=== PATIENT | female | born 1955 | race Caucasian/White ===

== ENCOUNTER → 2020-06-25 15:56 | Outpatient (BNVA) | payer MEDICARE, OTHER, SELFPAY | PROVIDERS: PCP Internal Medicine; Visit Provider Internal Medicine | DX: Z13.89 Encounter for screening for other disorder (principal) | CPT/HCPCS: Q3014 ==

== ENCOUNTER 2020-10-02 13:58 | Emergency (ER) | payer MEDICARE, OTHER, SELFPAY ==
--- NOTE | ~2020-10-02 | CT_ITS ---
EXAMINATION: CT ABDOMEN AND PELVIS WITHOUT CONTRAST CLINICAL INFORMATION: Right-sided abdominal pain COMPARISON: CT abdomen pelvis 01/02/2013 TECHNIQUE: Multidetector volumetric imaging was performed from the superior aspect of the liver through the pubic symphysis. Sagittal and coronal reformatted images were obtained on the technologist's workstation. This CT examination was performed using dose optimization techniques as appropriate, variously including the following: *Automated exposure control *Adjustment of mA and/or kV according to patient size (this includes techniques or standardized protocols for targeted exams where dose is matched to indication/reason for exam; i.e. extremities or head) *Use of iterative reconstruction technique DLP: 633 mGy-cm FINDINGS: LUNG BASES: The visualized lung bases are unremarkable. LIVER, GALLBLADDER, AND BILIARY TREE: The liver is normal in size, shape, and attenuation. No focal hepatic lesion or biliary ductal dilatation is present. The gallbladder is unremarkable with no evidence of radiopaque gallstones, gallbladder wall thickening, or obvious pericholecystic inflammatory changes. PANCREAS: Unremarkable. SPLEEN: Unremarkable. ADRENAL GLANDS: Unremarkable. KIDNEYS AND URETERS: The kidneys are normal in size, shape, and attenuation. No hydronephrosis, hydroureter, or calculi seen. No perinephric stranding. BLADDER: Unremarkable. GASTROINTESTINAL TRACT: There are numerous diverticula of the left colon. There is no diverticulitis. There is no bowel wall thickening /edema. There is no bowel obstruction. There is a small to moderate volume of stool in the colon. The appendix is normal . The small bowel loops are unremarkable. The stomach is normal. There is no hiatal hernia. ABDOMINAL WALL: Small fat-containing umbilical hernia. Surgical clips in the right groin. LYMPH NODES: Normal. VASCULAR: Atherosclerotic vascular calcifications of aorta and iliac arteries. PELVIC VISCERA: Unremarkable. OSSEOUS STRUCTURES: Multilevel degenerative spondylosis spine. Anterior wedge compression fracture of T11 vertebrae with greater than 50% loss of height of the vertebral body. This is chronic unchanged since 2012. CT/CT abdomen pelvis wo con IMPRESSION: No acute abnormality CT scan abdomen pelvis.
--- NOTE | ~2020-10-02 | US_ITS ---
EXAMINATION: US ABDOMEN LIMITED CLINICAL INFORMATION: Right upper quadrant pain, rule out cholecystitis. COMPARISON: CT scan of the abdomen and pelvis dated 01/02/2013. TECHNIQUE: Real-time imaging of the right upper quadrant abdominal viscera. FINDINGS: PANCREAS: Visualized portions unremarkable. LIVER: Unremarkable. GALLBLADDER: Unremarkable. No mural thickening, gallstones or pericholecystic fluid. COMMON BILE DUCT: Normal in caliber measuring 0.4 cm in diameter. RIGHT KIDNEY: 10.5 cm. Unremarkable. FREE FLUID: None. US/US abdomen limited IMPRESSION: Unremarkable right upper quadrant ultrasound. No gallbladder abnormality.
[2020-10-02 14:06] VITALS: BP 157/84; PULSE 107; RESP 18; TEMP 37.1; O2SAT 97; BMI 30.1
[2020-10-02 14:28] LABS: MANUAL DIFF FLAG NO
[2020-10-02 14:31] LABS: Basophils Absolute Auto 0.1 X10*3/uL (0.0-0.2); Basophils Percent Auto 0.4 % (0-2); Eosinophils Absolute Auto 0.2 X10*3/uL (0.0-0.4); Eosinophils Percent Auto 1.3 % (0-4); Hematocrit 46.7 % (37-47); Hemoglobin 15.1 g/dl (12.0-16.0); Imm Gran Abs Auto 0.18 X10*3/uL (0.00-0.03); Imm Gran Pct Auto 1.4 % (0.0-0.4); Lymphocytes Absolute Auto 2.4 X10*3/uL (1.2-4.9); Lymphocytes Percent Auto 18.8 % (20-40); Mean Corpuscular HGB Conc 32.3 g/dl (31.0-35.0); Mean Corpuscular Hemoglobin 30.4 pg (27.0-33.0); Mean Corpuscular Volume 94.2 fL (80-98); Mean Platelet Volume 10.4 fL (9.4-12.3); Monocytes Absolute Auto 1.5 X10*3/uL (0.1-1.2); Monocytes Percent Auto 11.7 % (2-11); Neutrophils Absolute Auto 8.5 X10*3/uL (2.0-8.3); Neutrophils Percent Auto 66.4 % (45-73); Platelet Count 314 X10*3/uL (160-400); Red Blood Count 4.96 X10*6/uL (4.20-5.50); Red Cell Distribution Width 14.2 % (11.0-16.0); White Blood Count 12.8 X10*3/uL (4.8-10.8)
[2020-10-02 14:35] LABS: Glucose Urine UA NEG (NEG); Leukocyte Esterase Urine NEG (NEG); Nitrite Urine NEG (NEG); PH 5.5 (5.0-8.0); Specific Gravity - Urine >= 1.030 (1.005-1.025); Urine Blood NEG (NEG); Urine Ketones 5 MG/DL (NEG); Urine Protein NEG (NEG-TRACE)
[2020-10-02 14:36] LABS: Appearance Urine CLEAR; Color Urine YELLOW
[2020-10-02 14:55] LABS: Alanine Aminotransferase 17 U/L (0-31); Alkaline Phosphatase 110 U/L (39-117); Anion Gap 15 (12-20); Aspartate Amino Transferase 13 U/L (5-31); Bilirubin Total 0.4 mg/dL (0.0-1.0); Blood Urea Nitrogen 14 mg/dL (9-16); Calcium 9.1 mg/dL (8.4-10.2); Carbon Dioxide 25 mmol/L (22-29); Chloride 106 mmol/L (96-108); Creatinine Clr Calc Pharmacy 75.6; Estimated Glomerular Filt Rate > 60; Glucose Random 88 mg/dL (60-115); Lipase 13 U/L (8-78); Potassium 3.6 mmol/L (3.3-5.1); Sodium 142 mmol/L (135-145); Total Protein 7.1 g/dL (6.5-8.0)
[2020-10-02 16:00] VITALS: BP 136/72; PULSE 91; RESP 20; O2SAT 98
--- NOTE | 2020-10-02 16:18 | ED_ITS ---
HPI - Abdominal Pain General Chief Complaint: Abdominal Pain Stated Complaint: abd pain Time Seen by Provider: 10/02/20 16:18 Source: patient Mode of arrival: ambulatory Limitations: no limitations History of Present Illness HPI narrative: Patient with history of COPD/ asthma on chronic use of prednisone came here for 3 days of right upper quadrant pain associated with nausea does not feel hungry pain radiates to right lower quadrant no fever no chills no blood in the urine no history of kidney stone no history of gallstone patient fell about 1 week ago without any significant injury to her abdomen and that time she did not have any significant pain. Related Data Home Medications Medication Instructions Recorded Confirmed bupropion HCl 200 mg tablet,12 hr PO 06/25/20 sustained-release clonidine HCl 0.1 mg tablet 0.05 mg PO BID 06/25/20 duloxetine 60 mg capsule,delayed 60 mg PO DAILY 06/25/20 release losartan 50 mg tablet 50 mg PO DAILY 06/25/20 montelukast 10 mg tablet 10 mg PO DAILY 06/25/20 pravastatin 40 mg tablet 40 mg PO DAILY 06/25/20 Previous Rx's Medication Instructions Recorded methylprednisolone 4 mg tablet 4 mg PO DAILY #30 tab 06/15/20 montelukast 10 mg tablet 10 mg PO DAILY 30 Days #30 tab 06/25/20 fluticasone furoate 200 1 inh INHALATION DAILY #60 ea 09/18/20 mcg-vilanterol 25 mcg/dose inhalation powder tramadol 50 mg PO Q6H PRN #20 tab 10/02/20 Allergies Allergy/AdvReac Type Severity Reaction Status Date / Time latex Allergy Unknown HIVES Verified 10/02/20 14:06 Review of Systems Review of Systems Constitutional : No Weight loss, No Fever, No Chills ENT/Mouth : No sore throat, No Rhinorrhea Eyes: No Eye Pain, No Swelling Cardiovascular : No Chest Pain, no palpitations Respiratory : No Cough, No Sputum, no shortness of breath Gastrointestinal : +Nausea, No Vomiting, No Diarrhea, ++ abdominal Pain, no black stools Genitourinary : No Dysuria, No Urinary Frequency Musculoskeletal : No joint pain, No Myalgias, No Joint Swelling Skin : No Skin Lesions, No rash Neuro : No Weakness, No Numbness, No Dizziness, No Headache Psych : No Anxiety/Panic, No Depression Heme/Lymph: No Bruising, No Lymphadenopathy Endocrine : No Polyuria, No Polydipsia All other systems reviewed and are negative Physical Exam Vital Signs: Vital Signs: Last Vital Signs Temp 98.6 F 10/02/20 17:00 Pulse 85 10/02/20 17:00 Resp 16 10/02/20 17:00 BP 136/66 10/02/20 17:00 Pulse Ox 98 10/02/20 17:00 Body Mass Index 30.1 MDM - Abdominal Pain MDM Narrative Medical decision making narrative: Patient with right upper abdominal tenderness which is very superficial to tender no hernia was palpable CT scan and ultrasound was negative for any acute pathology patient pain likely is muscular secondary to the fall. Discharge patient home on tramadol. Advised to follow- up with PCP if not better patient chronically elevated leukocytosis count secondary to use of prednisone Differential Diagnosis Differential diagnosis: Likely abdominal pain Lab Data Attestation: I reviewed the patient's lab results. Result diagrams: 10/02/20 14:23 10/02/20 14:23 Labs: Lab Results 10/02/20 10/02/20 10/02/20 Range/Units 14:23 14:23 14:23 WBC 12.8 H (4.8-10.8) X10*3/uL RBC 4.96 (4.20-5.50) X10*6/uL Hgb 15.1 (12.0-16.0) g/dl Hct 46.7 (37-47) % MCV 94.2 (80-98) fL MCH 30.4 (27.0-33.0) pg MCHC 32.3 (31.0-35.0) g/dl RDW 14.2 (11.0-16.0) % Plt Count 314 (160-400) X10*3/uL MPV 10.4 (9.4-12.3) fL Immature Gran % (Auto) 1.4 H (0.0-0.4) % Neut % (Auto) 66.4 (45-73) % Lymph % (Auto) 18.8 L (20-40) % [place] % (Auto) 11.7 H (2-11) % Eos % (Auto) 1.3 (0-4) % Baso % (Auto) 0.4 (0-2) % Lymph # (Auto) 2.4 (1.2-4.9) X10*3/uL [place] # (Auto) 1.5 H (0.1-1.2) X10*3/uL Eos # (Auto) 0.2 (0.0-0.4) X10*3/uL Baso # (Auto) 0.1 (0.0-0.2) X10*3/uL Abs Immat Gran (auto) 0.18 H (0.00-0.03) X10*3/uL Absolute Neuts (auto) 8.5 H (2.0-8.3) X10*3/uL Absolute Nucleated RBC 0.000 (0.0-0.012) X10*3/uL Nucleated RBC % (auto) 0.0 (0.0-0.2) /100WBC Hold Blue Top SEE NOTE Sodium 142 (135-145) mmol/L Potassium 3.6 (3.3-5.1) mmol/L Chloride 106 (96-108) mmol/L Carbon Dioxide 25 (22-29) mmol/L Anion Gap 15 (12-20) BUN 14 (9-16) mg/dL Creatinine 0.72 (0.5-1.4) mg/dL Estim Creat Clear Calc 75.6 Estimated GFR > 60 Random Glucose 88 (60-115) mg/dL Calcium 9.1 (8.4-10.2) mg/dL Total Bilirubin 0.4 (0.0-1.0) mg/dL AST 13 (5-31) U/L ALT 17 (0-31) U/L Alkaline Phosphatase 110 (39-117) U/L Total Protein 7.1 (6.5-8.0) g/dL Albumin 4.0 (3.5-5.0) g/dL Lipase 13 (8-78) U/L Urine Color Urine Appearance Urine pH (5.0-8.0) Ur Specific [place] (1.005-1.025) Urine Protein (NEG-TRACE) MG/DL Urine Glucose (UA) (NEG) MG/DL Urine Ketones (NEG) MG/DL Urine Blood (NEG) Urine Nitrite (NEG) Ur Leukocyte Esterase (NEG) 10/02/20 Range/Units 14:23 WBC (4.8-10.8) X10*3/uL RBC (4.20-5.50) X10*6/uL Hgb (12.0-16.0) g/dl Hct (37-47) % MCV (80-98) fL MCH (27.0-33.0) pg MCHC (31.0-35.0) g/dl RDW (11.0-16.0) % Plt Count (160-400) X10*3/uL MPV (9.4-12.3) fL Immature Gran % (Auto) (0.0-0.4) % Neut % (Auto) (45-73) % Lymph % (Auto) (20-40) % [place] % (Auto) (2-11) % Eos % (Auto) (0-4) % Baso % (Auto) (0-2) % Lymph # (Auto) (1.2-4.9) X10*3/uL [place] # (Auto) (0.1-1.2) X10*3/uL Eos # (Auto) (0.0-0.4) X10*3/uL Baso # (Auto) (0.0-0.2) X10*3/uL Abs Immat Gran (auto) (0.00-0.03) X10*3/uL Absolute Neuts (auto) (2.0-8.3) X10*3/uL Absolute Nucleated RBC (0.0-0.012) X10*3/uL Nucleated RBC % (auto) (0.0-0.2) /100WBC Hold Blue Top Sodium (135-145) mmol/L Potassium (3.3-5.1) mmol/L Chloride (96-108) mmol/L Carbon Dioxide (22-29) mmol/L Anion Gap (12-20) BUN (9-16) mg/dL Creatinine (0.5-1.4) mg/dL Estim Creat Clear Calc Estimated GFR Random Glucose (60-115) mg/dL Calcium (8.4-10.2) mg/dL Total Bilirubin (0.0-1.0) mg/dL AST (5-31) U/L ALT (0-31) U/L Alkaline Phosphatase (39-117) U/L Total Protein (6.5-8.0) g/dL Albumin (3.5-5.0) g/dL Lipase (8-78) U/L Urine Color YELLOW Urine Appearance CLEAR Urine pH 5.5 (5.0-8.0) Ur Specific [place] >= 1.030 H (1.005-1.025) Urine Protein NEG (NEG-TRACE) MG/DL Urine Glucose (UA) NEG (NEG) MG/DL Urine Ketones 5 (NEG) MG/DL Urine Blood NEG (NEG) Urine Nitrite NEG (NEG) Ur Leukocyte Esterase NEG (NEG) Discharge Plan Discharge Clinical Impression: Abdominal pain Qualifiers: Abdominal location: right upper quadrant Qualified Code(s): R10.11 - Right upper quadrant pain Patient Disposition: Home, Self-Care Instructions: Abdominal Pain (ED) Additional Instructions: Etiology of pain in your abdomen is not very clear likely from the contusion. Your CT scan abdomen is negative for any acute pathology your ultrasound for ga llbladder is negative for gallstones. Follow-up with your PCP for further evaluation if pain continues Prescriptions: New tramadol 50 mg tablet 50 mg PO Q6H PRN (Reason: pain) Qty: 20 RF: 0 No Action methylprednisolone [Medrol] 4 mg tablet 4 mg PO DAILY Qty: 30 RF: 2 Breo Ellipta 200-25 mcg/dose blister with device 1 inh inhalation DAILY Qty: 60 RF: 3 clonidine HCl 0.1 mg tablet 0.05 mg PO BID RF: 0 montelukast [Singulair] 10 mg tablet 10 mg PO DAILY RF: 0 duloxetine 60 mg capsule,delayed release(DR/EC) 60 mg PO DAILY RF: 0 pravastatin 40 mg tablet 40 mg PO DAILY RF: 0 bupropion HCl 200 mg tablet sustained-release 12 hr PO RF: 0 losartan 50 mg tablet 50 mg PO DAILY RF: 0 montelukast 10 mg tablet 10 mg PO DAILY 30 Days Qty: 30 RF: 3 Interventions: ED Discharge Assessment Last Done: 10/02/20 20:04 Discharge Date/Time: 10/02/20 20:04 [facility] Past Medical History Medical History (Updated 10/02/20 @ 19:04 by Collins Triana MD) Allergic rhinitis Asthma COPD (chronic obstructive pulmonary disease) Hiatal hernia Social History Social History Smoking Status: Former smoker Advance Directives: No Advance Directives Information Provided: Yes
[2020-10-02] MEDS: Morphine Sulfate 4 MG/ML CARTRIDGE IVPUSH (16:46)
[2020-10-02] MEDS: ondansetron HCL 4 MG/2 ML VIAL IVPUSH (16:47)
[2020-10-02] MEDS: 0.9 % Sodium Chloride 1,000 ML 999 ML IVCONT (16:47)
[2020-10-02 16:48] VITALS: BP 131/59
[2020-10-02 17:00] VITALS: BP 136/66; PULSE 85; RESP 16; TEMP 37; O2SAT 98
== END 2020-10-02 20:04 | disposition home or self-care (01) ==
PROVIDERS: Emergency Provider Internal Medicine; PCP Internal Medicine
DX: R10.11 Right upper quadrant pain (principal)
CPT/HCPCS: 36415; 74176; 76705; 80053; 81003; 83690; 85025; 96361; 96374; 96375; 99284; J2270; J2405

== ENCOUNTER 2020-11-17 14:32 | Emergency (ER) | payer MEDICARE, OTHER, SELFPAY ==
--- NOTE | 2020-11-17 | ECG_ITS ---
Test Reason : DIZZINESS Blood Pressure : / mmHG Vent. Rate : 099 BPM Atrial Rate : 099 BPM P-R Int : 158 ms QRS Dur : 128 ms QT Int : 388 ms P-R-T Axes : 059 -12 119 degrees QTc Int : 497 ms Normal sinus rhythm Left bundle branch block Abnormal ECG When compared with ECG of 07-OCT-2012 05:29, No significant changes seen Referred By: Kosta Borrego Electronically Signed By:HARITHA EDWARDS
--- NOTE | ~2020-11-17 | XR_ITS ---
EXAMINATION: XR CHEST CLINICAL INFORMATION: Chest pain COMPARISON: Previous chest x-ray March 2019 TECHNIQUE: 2 views of the chest were obtained. FINDINGS: The cardiac silhouette does not appear enlarged. There is a small esophageal hernia. Hilar and mediastinal contours are otherwise unremarkable. There is subsegmental atelectasis or scarring at the lung bases. The lungs are otherwise clear. There is no pleural effusion or pneumothorax. Bony structures are unremarkable. XR/XR chest 2V IMPRESSION: Small esophageal hernia. Scarring or subsegmental atelectasis at the lung bases.
--- NOTE | ~2020-11-17 | CT_ITS ---
EXAMINATION: CT HEAD WITHOUT CONTRAST CLINICAL INFORMATION: Dizziness. COMPARISON: None TECHNIQUE: Contiguous axial imaging was performed from the skull base to vertex without intravenous administration of contrast. This CT examination was performed using dose optimization techniques as appropriate, variously including the following: *Automated exposure control *Adjustment of mA and/or kV according to patient size (this includes techniques or standardized protocols for targeted exams where dose is matched to indication/reason for exam; i.e. extremities or head) *Use of iterative reconstruction technique DLP: 615 mGy-cm FINDINGS: Mild diffuse commensurate prominence of ventricles and sulci is noted. No intracranial hemorrhage, tumors or acute infarcts are visualized. No focal parenchymal lesions of the brain or abnormal extra-axial fluid collections are identified. Minimal senescent calcifications of the globus pallidotomy are noted. Moderate segmental calcific atherosclerotic plaques are present in the cavernous portions of the internal carotid arteries and minimal scattered calcific atherosclerotic plaques are present in the intradural segments of the vertebral arteries. Bilateral ocular lens extractions are noted. No significant opacification of the mastoid air cells, middle ear cavities or visualized paranasal sinuses is noted. CT/CT head/brain wo con IMPRESSION: 1. No acute intracranial abnormalities. 2. Mild intracranial atherosclerosis.
[2020-11-17 15:28] VITALS: BP 199/96; PULSE 76; RESP 20; TEMP 35.9; O2SAT 94; BMI 30.4
[2020-11-17 18:24] LABS: MANUAL DIFF FLAG NO
[2020-11-17 18:25] LABS: Basophils Percent Auto 0.2 % (0-2); Eosinophils Absolute Auto 0.2 X10*3/uL (0.0-0.4); Eosinophils Percent Auto 1.4 % (0-4); Hematocrit 45.4 % (37-47); Hemoglobin 14.5 g/dl (12.0-16.0); Imm Gran Abs Auto 0.12 X10*3/uL (0.00-0.03); Imm Gran Pct Auto 0.8 % (0.0-0.4); Lymphocytes Absolute Auto 1.6 X10*3/uL (1.2-4.9); Lymphocytes Percent Auto 10.4 % (20-40); Mean Corpuscular HGB Conc 31.9 g/dl (31.0-35.0); Mean Corpuscular Hemoglobin 30.5 pg (27.0-33.0); Mean Corpuscular Volume 95.6 fL (80-98); Mean Platelet Volume 10.1 fL (9.4-12.3); Monocytes Percent Auto 6.7 % (2-11); Neutrophils Absolute Auto 12.5 X10*3/uL (2.0-8.3); Neutrophils Percent Auto 80.5 % (45-73); Platelet Count 283 X10*3/uL (160-400); Red Blood Count 4.75 X10*6/uL (4.20-5.50); Red Cell Distribution Width 13.4 % (11.0-16.0); White Blood Count 15.5 X10*3/uL (4.8-10.8)
--- NOTE | 2020-11-17 18:26 | ED.DIZZY ---
HPI - Dizziness General Chief Complaint: Dizziness Stated Complaint: high blood pressure, dizzy Time Seen by Provider: 11/17/20 18:10 Source: patient Mode of arrival: ambulatory Limitations: no limitations History of Present Illness HPI Narrative: 65 yo female with past medical history of COPD, asthma, HTN here with complaints of dizziness with position changes, ears ringing bilateral, frontal BUCIO with sinus pressure and pain and chronic cough with some chest discomfort with coughing only x 4 days. Called her primary care doctor referred to the emergency department for further evaluation. Related Data Home Medications Medication Instructions Recorded Confirmed bupropion HCl 200 mg tablet,12 hr PO 06/25/20 sustained-release clonidine HCl 0.1 mg tablet 0.05 mg PO BID 06/25/20 duloxetine 60 mg capsule,delayed 60 mg PO DAILY 06/25/20 release losartan 50 mg tablet 50 mg PO DAILY 06/25/20 montelukast 10 mg tablet 10 mg PO DAILY 06/25/20 pravastatin 40 mg tablet 40 mg PO DAILY 06/25/20 Previous Rx's Medication Instructions Recorded montelukast 10 mg tablet 10 mg PO DAILY 30 Days #30 tab 06/25/20 fluticasone furoate 200 1 inh INHALATION DAILY #60 ea 09/18/20 mcg-vilanterol 25 mcg/dose inhalation powder tramadol 50 mg PO Q6H PRN #20 tab 10/02/20 methylprednisolone 4 mg tablet 4 mg PO DAILY #30 cap 10/13/20 amoxicillin-pot clavulanate 1 tab PO BID #14 tab 11/17/20 [Augmentin] Allergies Allergy/AdvReac Type Severity Reaction Status Date / Time latex Allergy Unknown HIVES Verified 11/17/20 15:27 Review of Systems Review of Systems: Yes all other systems are reviewed and are negative Constitutional: Constitutional: Reports no additional constitutional complaints, Denies body ache(s), Denies chills, Denies fever(s), Reports headache(s) and Denies weakness Eyes: Eyes: Reports no additional eye complaints and Denies change in vision ENT: Reports system reviewed and no additional complaints, except as documented, Denies dizziness, Reports headache(s), Denies nasal congestion, Denies nasal discharge and Denies neck pain Comments: ears ringing Cardiovascular: Cardiovascular: Reports no additional cardiovascular complaints, Denies chest pain, Denies leg edema and Denies dyspnea Respiratory: Respiratory: Reports no additional respiratory complaints, Reports cough and Denies dyspnea Gastrointestinal: Gastrointestinal: Reports no additional gastrointestinal complaints, Denies abdominal pain, Denies diarrhea, Denies nausea and Denies vomiting Genitourinary: Genitourinary: Reports no additional female genitourinary complaints and Denies urinary incontinence Musculoskeletal: Musculoskeletal: Reports no additional musculoskeletal complaints, Denies back pain, Denies arthralgias, Denies joint swelling, Denies neck pain, Denies numbness and Denies tingling Integumentary/Breasts: Skin/Breast: Reports system reviewed and no additional complaints, except as docu and Denies rash Neurologic: Reports system reviewed and no additional complaints, except as documented, Denies Abnormal speech present, Denies dizziness, Reports headache(s), Denies numbness, Denies tingling and Denies weakness PMFSH Past Medical History Attestation statement: The following information was validated with the patient. Source: old records reviewed and nursing notes reviewed Medical History Allergic rhinitis Asthma COPD (chronic obstructive pulmonary disease) Hiatal hernia Hypertension Social History Social History Alcohol intake: never Patient Tobacco Use Status: Never used Tobacco Use of substances other than those prescribed or required for medical reasons: No Advance Directives: No Advance Directives Information Provided: No Physical Exam Vital Signs: Vital Signs: Last Vital Signs Temp 97.7 F 11/17/20 19:43 Pulse 77 11/17/20 19:43 Resp 16 11/17/20 19:43 BP 152/74 H 11/17/20 19:43 Pulse Ox 96 11/17/20 19:43 Body Mass Index 30.4 Const: General: cooperative, healthy appearing, comfortable and no acute distress Orientation/consciousness: patient oriented x3 Limitations: no limitations HENMT: Head: Yes normal to inspection Ears: hearing grossly normal bilaterally and TM abnormal (Bilateral) bulging General nose exam: Normal external nose present Face and sinus: Yes normal facial exam and Yes sinus tenderness (Maxillary and frontal) Mouth: Normal oral and palatal mucosa present Throat: Yes posterior oropharynx normal, Yes tonsils normal and Yes uvula midline Eyes: General: appearance normal, both eyes and all related structures Pupils: Equal, round and reactive pupils present Neck: Neck: Yes normal visual inspection, Yes full ROM, Yes no lymphadenopathy and Yes no meningeal signs Chest: Chest palpation & inspection: normal inspection of the chest Resp: Effort & Inspection: normal respiratory effort Auscultation: clear to auscultation bilaterally Cardio: Rate: regular rate Rhythm: regular rhythm Peripheral pulses: Peripheral pulses 2+ throughout GI: Inspection: Yes normal to inspection Palpation (GI): Soft to palpation and nontender Auscultation: normal bowel sounds Back/Spine/Pelvis: Thoracic/Lumbar Spine: thoracic and lumbar spine normal to inspection Skin: General skin exam: no rashes or lesions noted Neuro: General: patient oriented x3, no meningeal signs, no focal motor deficits and normal sensation to monofilament Cranial nerves: Yes CN's II-XII intact bilaterally, Yes Equal, round and reactive pupils present, Yes Bilaterally intact EOM present, Yes Nystagmus not present, Yes Normal facial strength present and Yes Midline tongue present Cognition (Neuro): normal cognition Speech: No Abnormal speech present Gait exam (Neuro): Normal gait present Motor exam (neuro): 5/5 motor strength present throughout Sensory Exam: Normal double simultaneous stimulation for sensation Coordination: [id number]-[id number] test normal, rstn-ow-aufy test normal and tandem gait normal Extrem: General: Yes normal to inspection, Yes no pedal edema and Yes no calf tenderness Course Course Course Narrative: 65 yo female here with complaints of dizziness, bilateral ear ringing, sinus pressure and pain, frontal headache, mild chest discomfort and shortness of breath x4 days Normal neuro exam Hemodynamically stable Bilateral TMs with bulging and some sinus tenderness to palpate. Likely sinusitis. Mild hypertension on arrival. Due to age and risk factors will check labs, EKG, chest x-ray and CT head. Will trend blood pressure 1930-labs unremarkable. EKG and chest x-ray show no acute finding. CT head negative for any intracranial pathology. Repeat neuro exam unchanged. Blood pressure trending down without intervention. Likely sinusitis. Patient has nasal spray and aloe-hlk-qearizb allergy medications at home. Will give course of antibiotics. Reviewed worrisome signs and symptoms of when to return to the emergency department. Comfortable discharge home. MDM - Dizziness MDM Narrative Medical decision making narrative: less likely cva here with normal neuro exam with no deficits and negative CT scan with symptoms >4 days Medical Records Attestation: I reviewed the patient's medical records. Lab Data Attestation: I reviewed the patient's lab results. Result diagrams: 11/17/20 18:18 11/17/20 18:18 Labs: Lab Results 11/17/20 11/17/20 11/17/20 Range/Units 18:18 18:18 18:18 WBC 15.5 H (4.8-10.8) X10*3/uL RBC 4.75 (4.20-5.50) X10*6/uL Hgb 14.5 (12.0-16.0) g/dl Hct 45.4 (37-47) % MCV 95.6 (80-98) fL MCH 30.5 (27.0-33.0) pg MCHC 31.9 (31.0-35.0) g/dl RDW 13.4 (11.0-16.0) % Plt Count 283 (160-400) X10*3/uL MPV 10.1 (9.4-12.3) fL Immature Gran % (Auto) 0.8 H (0.0-0.4) % Neut % (Auto) 80.5 H (45-73) % Lymph % (Auto) 10.4 L (20-40) % [place] % (Auto) 6.7 (2-11) % Eos % (Auto) 1.4 (0-4) % Baso % (Auto) 0.2 (0-2) % Lymph # (Auto) 1.6 (1.2-4.9) X10*3/uL [place] # (Auto) 1.0 (0.1-1.2) X10*3/uL Eos # (Auto) 0.2 (0.0-0.4) X10*3/uL Baso # (Auto) 0.0 (0.0-0.2) X10*3/uL Abs Immat Gran (auto) 0.12 H (0.00-0.03) X10*3/uL Absolute Neuts (auto) 12.5 H (2.0-8.3) X10*3/uL Absolute Nucleated RBC 0.000 (0.0-0.012) X10*3/uL Nucleated RBC % (auto) 0.0 (0.0-0.2) /100WBC Sodium 143 (135-145) mmol/L Potassium 4.2 (3.3-5.1) mmol/L Chloride 106 (96-108) mmol/L Carbon Dioxide 27 (22-29) mmol/L Anion Gap 14 (12-20) BUN 12 (9-16) mg/dL Creatinine 0.70 (0.5-1.4) mg/dL Estim Creat Clear Calc 78.1 Estimated GFR > 60 Random Glucose 96 (60-115) mg/dL Calcium 9.0 (8.4-10.2) mg/dL Magnesium 2.1 (1.6-2.6) mg/dL Total Bilirubin 0.3 (0.0-1.0) mg/dL Direct Bilirubin < 0.2 (0.0-0.5) mg/dL AST 18 (5-31) U/L ALT 19 (0-31) U/L Alkaline Phosphatase 113 (39-117) U/L Troponin I High Sens 5.9 (<3.5-17.0) ng/L Total Protein 6.9 (6.5-8.0) g/dL Albumin 4.0 (3.5-5.0) g/dL Imaging Data Chest x-ray: Attestation: I personally reviewed and interpreted this imaging study as follows: Radiologist's impression: COMPARISON: Previous chest x-ray March 2019 TECHNIQUE: 2 views of the chest were obtained. FINDINGS: The cardiac silhouette does not appear enlarged. There is a small esophageal hernia. Hilar and mediastinal contours are otherwise unremarkable. There is subsegmental atelectasis or scarring at the lung bases. The lungs are otherwise clear. There is no pleural effusion or pneumothorax. Bony structures are unremarkable. XR/XR chest 2V IMPRESSION: Small esophageal hernia. Scarring or subsegmental atelectasis at the lung bases. ECG Data Attestation: I personally reviewed and interpreted this ECG as follows: ECG interpretation date: 11/17/20 ECG interpretation time: 15:59 Interpretation: Normal sinus rhythm with a rate of 99, left bundle-branch block which is unchanged when compared to EKG 2012, normal [place], normal QRS, normal QT Discharge Plan Discharge Clinical Impression: Acute dysfunction of eustachian tube Sinusitis Qualifiers: Sinusitis location: other Chronicity: acute Recurrence: non-recurrent Qualified Code(s): J01.80 - Other acute sinusitis Patient Disposition: Home, Self-Care Instructions: Sinusitis (ED) Additional Instructions: Next dose of antibiotics tomorrow Take your nasal spray and gkgn-eof-lajwzjh allergy medication without the D component as discussed Your blood pressure was elevated but improved without intervention. You can follow up with your primary care doctor in regards to this Prescriptions: New amoxicillin-pot clavulanate [Augmentin] 875-125 mg tablet 1 tab PO BID Qty: 14 RF: 0 No Action Breo Ellipta 200-25 mcg/dose blister with device 1 inh inhalation DAILY Qty: 60 RF: 3 methylprednisolone 4 mg tablet 4 mg PO DAILY Qty: 30 RF: 2 tramadol 50 mg tablet 50 mg PO Q6H PRN (Reason: pain) Qty: 20 RF: 0 clonidine HCl 0.1 mg tablet 0.05 mg PO BID RF: 0 montelukast [Singulair] 10 mg tablet 10 mg PO DAILY RF: 0 duloxetine 60 mg capsule,delayed release(DR/EC) 60 mg PO DAILY RF: 0 pravastatin 40 mg tablet 40 mg PO DAILY RF: 0 bupropion HCl 200 mg tablet sustained-release 12 hr PO RF: 0 losartan 50 mg tablet 50 mg PO DAILY RF: 0 montelukast 10 mg tablet 10 mg PO DAILY 30 Days Qty: 30 RF: 3 Referrals: Daniel Landa MD [Primary Care Provider] - 2 days Interventions: ED Discharge Assessment Last Done: 11/17/20 19:44 Discharge Date/Time: 11/17/20 19:44
[2020-11-17 18:32] VITALS: BP 148/70; PULSE 82; RESP 16; TEMP 36.2; O2SAT 97
[2020-11-17 18:49] LABS: Alanine Aminotransferase 19 U/L (0-31); Alkaline Phosphatase 113 U/L (39-117); Anion Gap 14 (12-20); Aspartate Amino Transferase 18 U/L (5-31); Bilirubin Direct < 0.2 mg/dL (0.0-0.5); Bilirubin Total 0.3 mg/dL (0.0-1.0); Blood Urea Nitrogen 12 mg/dL (9-16); Carbon Dioxide 27 mmol/L (22-29); Chloride 106 mmol/L (96-108); Creatinine Clr Calc Pharmacy 78.1; Estimated Glomerular Filt Rate > 60; Glucose Random 96 mg/dL (60-115); Magnesium 2.1 mg/dL (1.6-2.6); Potassium 4.2 mmol/L (3.3-5.1); Sodium 143 mmol/L (135-145); Total Protein 6.9 g/dL (6.5-8.0)
[2020-11-17 18:52] LABS: Troponin-I High Sensitivity 5.9 ng/L (<3.5-17.0)
[2020-11-17 19:43] VITALS: BP 152/74; PULSE 77; RESP 16; TEMP 36.5; O2SAT 96
== END 2020-11-17 19:44 | disposition home or self-care (01) ==
PROVIDERS: Emergency Medicine; Nurse Practitioner Family; Emergency Provider Internal Medicine; PCP Internal Medicine
DX: J01.80 Other acute sinusitis (principal); H69.90 Unspecified Eustachian tube disorder, unspecified ear; R42 Dizziness and giddiness; I10 Essential (primary) hypertension
CPT/HCPCS: 36415; 70450; 71046; 80048; 80076; 83735; 84484; 85025; 93005; 99284

== ENCOUNTER → 2021-02-23 10:57 | Outpatient (BNVA) | payer MEDICARE, OTHER, SELFPAY | PROVIDERS: PCP Internal Medicine; Visit Provider Internal Medicine | DX: J30.9 Allergic rhinitis, unspecified (principal); J45.909 Unspecified asthma, uncomplicated; J44.9 Chronic obstructive pulmonary disease, unspecified | CPT/HCPCS: 99212 ==

== ENCOUNTER → 2021-04-20 10:59 | Outpatient (BNVA) | payer MEDICARE, OTHER, SELFPAY | PROVIDERS: PCP Internal Medicine; Visit Provider Internal Medicine | DX: J30.9 Allergic rhinitis, unspecified (principal); J44.9 Chronic obstructive pulmonary disease, unspecified; J45.909 Unspecified asthma, uncomplicated | CPT/HCPCS: 99212 ==

== ENCOUNTER 2021-08-24 10:59 | Outpatient (REF) | payer MEDICARE, OTHER, SELFPAY ==
--- NOTE | ~2021-08-24 | XR_ITS ---
EXAMINATION: XR CHEST CLINICAL INFORMATION: COPD COMPARISON: Previous chest x-ray November 2020 TECHNIQUE: 2 views of the chest were obtained. FINDINGS: The cardiac and mediastinal contours are stable. There is bronchial wall thickening and nodular opacities in the right upper lobe probably representing bronchopneumonia. There is chronic scarring or subsegmental atelectasis at both lung bases that is unchanged. The lungs are otherwise clear. There is no pleural effusion or pneumothorax. There is an old T12 vertebral body compression fracture. There are degenerative changes of the spine. XR/XR chest 2V IMPRESSION: Right upper lobe bronchopneumonia.
== END 2021-08-24 11:00 | disposition home or self-care (01) ==
LOC: HO.XRAY 10:59
PROVIDERS: PCP Internal Medicine; Visit Provider Internal Medicine
DX: J44.1 Chronic obstructive pulmonary disease with (acute) exacerbation (principal); J45.909 Unspecified asthma, uncomplicated
CPT/HCPCS: 71046; 99212

== ENCOUNTER 2021-09-07 13:28 | Outpatient (REF) | payer MEDICARE, OTHER, SELFPAY ==
--- NOTE | ~2021-09-07 | XR_ITS ---
EXAMINATION: XR CHEST CLINICAL INFORMATION: Pneumonia. COMPARISON: Chest 08/24/2021 TECHNIQUE: 2 views of the chest were obtained. FINDINGS: Previously seen right upper lobe bronchogram and appears slightly improved compared to previous study. There is bandlike atelectasis in the lingula in the right lower lobe new since the previous study. Heart size and pulmonary vascularity is normal. No gross bony abnormality seen. Band XR/XR chest 2V IMPRESSION: Improved right upper lobe bronchopneumonia. New bandlike atelectasis or scarring in right lower lobe and lingula.
== END 2021-09-07 13:29 | disposition home or self-care (01) ==
LOC: HO.XRAY 13:28
PROVIDERS: PCP Internal Medicine; Visit Provider Internal Medicine
DX: J18.9 Pneumonia, unspecified organism (principal); J44.1 Chronic obstructive pulmonary disease with (acute) exacerbation; J45.909 Unspecified asthma, uncomplicated
CPT/HCPCS: 71046; 99212

== ENCOUNTER → 2022-01-18 13:04 | Outpatient (BNVA) | payer MEDICARE, OTHER, SELFPAY | PROVIDERS: PCP Internal Medicine; Visit Provider Internal Medicine | DX: J44.1 Chronic obstructive pulmonary disease with (acute) exacerbation (principal); J45.909 Unspecified asthma, uncomplicated | CPT/HCPCS: 99212 ==

== ENCOUNTER 2022-04-01 15:53 | Outpatient (REF) | payer MEDICARE, OTHER, SELFPAY ==
--- NOTE | ~2022-04-01 | XR_ITS ---
EXAMINATION: XR CHEST CLINICAL INFORMATION: Acute bronchitis. COMPARISON: 09/07/2021 chest radiographs. TECHNIQUE: 2 views of the chest were obtained. FINDINGS: Mild to moderate bibasilar atelectasis/scarring is again seen without significant change. The upper lung dawn are clear. The heart and mediastinal structures are unremarkable. XR/XR chest 2V IMPRESSION: Mild to moderate bibasilar atelectasis/scarring without significant change. No acute cardiopulmonary process.
== END 2022-04-01 15:54 | disposition home or self-care (01) ==
LOC: HO.HMGCX 15:53
PROVIDERS: Absent Provider Internal Medicine; PCP Internal Medicine; Visit Provider Internal Medicine
DX: J20.9 Acute bronchitis, unspecified (principal)
CPT/HCPCS: 71046

== ENCOUNTER 2022-04-02 13:51 | Outpatient (REF) | payer MEDICARE, OTHER, SELFPAY ==
[2022-04-02 15:20] LABS: Hematocrit 42.5 % (37.0-47.0); Hemoglobin 13.8 g/dl (12.0-16.0); Mean Corpuscular HGB Conc 32.5 g/dl (31.0-35.0); Mean Corpuscular Hemoglobin 30.9 pg (27.0-33.0); Mean Corpuscular Volume 95.1 fL (80.0-98.0); Platelet Count 289 X10*3/uL (160-400); Red Blood Count 4.47 X10*6/uL (4.20-5.50); Red Cell Distribution Width 13.8 % (11.0-16.0); White Blood Count 10.5 X10*3/uL (4.8-10.8)
[2022-04-02 15:33] LABS: Anion Gap 16 (12-20); Blood Urea Nitrogen 9 mg/dL (9-16); Calcium 8.9 mg/dL (8.4-10.2); Carbon Dioxide 26 mmol/L (22-29); Chloride 105 mmol/L (96-108); Estimated Glomerular Filt Rate > 60; Glucose Random 153 mg/dL (60-115); Potassium 4.1 mmol/L (3.3-5.1); Sodium 143 mmol/L (135-145)
== END 2022-04-02 13:52 | disposition home or self-care (01) ==
LOC: HO.HMGCLDS 13:51
PROVIDERS: PCP Internal Medicine; Visit Provider Internal Medicine
DX: J20.9 Acute bronchitis, unspecified (principal)
CPT/HCPCS: 36415; 80048; 85027

== ENCOUNTER → 2022-04-05 10:52 | Outpatient (BNVA) | payer MEDICARE, OTHER, SELFPAY | PROVIDERS: PCP Internal Medicine; Visit Provider Internal Medicine | DX: J44.1 Chronic obstructive pulmonary disease with (acute) exacerbation (principal); J45.909 Unspecified asthma, uncomplicated | CPT/HCPCS: 99212 ==

== ENCOUNTER 2023-03-15 15:02 | Outpatient (AMB) | payer MEDICARE, OTHER, SELFPAY ==
--- NOTE | 2023-03-15 15:24 | AM.OFFWIN_ITS ---
Intake Vital Signs 03/15/23 15:27 Weight 143 lb BP 140/90 H Blood Pressure Location Lt brachial Position Sitting Pulse 106 H Pulse Source Pulse Oximeter Temp 96.6 F L Temp Source Oral Pulse Oximetry (%) 97 Oxygen Delivery Method Room Air Intake Visit Reasons: EP, sinus congestion, right ear pain Intake Note: Patient here for sinus infection which has been present for about 2 weeks. Patient Tobacco Use Status: Never used Tobacco Allergies latex Allergy (Unknown, Verified 03/15/23 15:28) HIVES doxycycline Adverse Reaction (Verified 03/15/23 15:28) Irritable Do you need a note to return to daycare/school/sports/work: No HPI HPI Comments History of Present Illness Details This is a 67-year-old female with a past medical history [id number] diabetes, asthma and seasonal allergies presenting for evaluation of facial pain and purulent rhinorrhea that has been evolving over the past 2 weeks. Patient is also complaining of bilateral ear pain. Patient has used a Neti pot and naproxen without relief of her symptoms. Patient denies having any fevers but has had chills over the past 2 days. [facility] Medical History Pneumonia COPD exacerbation Hypertension Hiatal hernia COPD (chronic obstructive pulmonary disease) Asthma Allergic rhinitis Social History Alcohol intake: never Patient Tobacco Use Status: Never used Tobacco Review of Systems Const Reports chills, Denies fever(s) and Reports headache(s) Eyes Reports no additional complaints ENT Reports headache(s), Reports sinus pain and Reports sinus pressure Card Reports as per HPI and Denies dyspnea Resp Reports as per HPI, Denies cough and Denies dyspnea Neuro Reports no additional complaints and Reports headache(s) Psych Reports no additional complaints Endo Reports no additional complaints Physical Exam Vital Signs: Last Vital Signs Temp 96.6 F L 03/15/23 15:27 Pulse 106 H 03/15/23 15:27 BP 140/90 H 03/15/23 15:27 Pulse Ox 97 03/15/23 15:27 Oxygen Delivery Method Room Air 03/15/23 15:27 Const General: cooperative, healthy appearing and anxious; No no acute distress (mild distress, anxious) Nutritional Appearance: overweight Orientation/consciousness: patient oriented x3 Limitations: no limitations HEENT Head: Yes normal to inspection Ears: TM abnormal bulging (bilaterally) on the right and erythematous (left) on the left General nose exam: Normal external nose present and no nasal discharge noted Face and sinus: No erythema and Yes sinus tenderness Mouth: Normal oral and palatal mucosa present, oropharynx normal and moist mucous membranes Throat: Yes posterior oropharynx normal Eyes Conjunctivae: abnormal conjunctivae (Conjunctiva injected bilaterally) EOM: EOMs intact bilaterally Neck Lymphatic: no lymphadenopathy noted Resp Effort & Inspection: normal respiratory effort, able to speak in complete sentences and no audible wheezes Auscultation: clear to auscultation bilaterally Cardio Rate: regular rate (heart rate 88) Rhythm: regular rhythm Skin General skin exam: no rashes or lesions noted Neuro General: patient oriented x3 Psych Appearance: grossly normal Mental Status: mental status grossly normal Insight: Good insight present (Psych) Judgement: Good judgement present (Psych) Assessment & Plan Assessment & Plan (1) Otitis media, left: Code(s): H66.92 - Otitis media, unspecified, left ear Qualifiers: Otitis media type: unspecified Qualified Code(s): H66.92 - Otitis media, unspecified, left ear (2) Allergic sinusitis: Code(s): J30.9 - Allergic rhinitis, unspecified Plan: Patient will be discharged home with Augmentin as well as fluticasone nasal spray to use for management of this allergic sinusitis and left otitis media. Medications: New amoxicillin-pot clavulanate 500-125 mg (Augmentin) 1 tab PO BID 14 tabs 0RF fluticasone propionate 50 mcg/actuation administer into each nostril 1 spray intranasal DAILY 16 grams 1RF Coding Level of Care Code Est Pt Level 3 (49700) Diagnoses Left otitis media, unspecified otitis media type H66.92 Otitis media type: unspecified Allergic sinusitis J30.9 Time Spent (min) 20
[2023-03-15 15:27] VITALS: BP 140/90; PULSE 106; TEMP 35.9; O2SAT 97
== END 2023-03-15 16:05 | disposition home or self-care (01) ==
PROVIDERS: PCP Internal Medicine; Visit Provider Physician Assistant
DX: H66.92 Otitis media, unspecified, left ear (principal); J30.9 Allergic rhinitis, unspecified
CPT/HCPCS: 99213

== ENCOUNTER 2023-05-11 14:37 | Outpatient (AMB) | payer MEDICARE, OTHER, SELFPAY ==
--- NOTE | 2023-05-11 14:49 | AM.OFFWIN_ITS ---
Intake Vital Signs 05/11/23 14:50 Weight 160 lb BP 130/80 Blood Pressure Location Rt brachial Position Sitting Pulse 118 H Pulse Source Pulse Oximeter Temp 97.5 F Temp Source Temporal Artery Scan Pulse Oximetry (%) 99 Oxygen Delivery Method Room Air Intake Visit Reasons: Ep, sinus congestion (masked) Intake Note: pt is here today for sinus congestion started Patient Tobacco Use Status: Never used Tobacco Allergies latex Allergy (Unknown, Verified 05/11/23 14:50) HIVES doxycycline Adverse Reaction (Verified 05/11/23 14:50) Irritable Do you need a note to return to daycare/school/sports/work: No HPI HPI Comments History of Present Illness Details This is a 67-year-old female with a 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 Patient also reports having some mild sinus pressure and a headache. She denies any cough, chest pain, shortness of breath or dyspnea with exertion. Patient was recently placed on metoprolol 25 mg twice daily for tachycardia that she experienced following steroid injections for nerve pain in her low back. Patient was then told to discontinue this medication as she was experiencing lightheadedness. Patient discontinued her metoprolol approximately 7 days ago. She states that her lightheadedness has not resolved and she continues to be tachycardic. [facility] Medical History Pneumonia COPD exacerbation Hypertension Hiatal hernia COPD (chronic obstructive pulmonary disease) Asthma Allergic rhinitis Social History Alcohol intake: never Patient Tobacco Use Status: Never used Tobacco Review of Systems Const All systems reviewed & are unremarkable except as noted in HPI and below Eyes Reports as per HPI ENT Reports no additional complaints Card Reports rapid heart rate and Reports lightheadedness Resp Reports no additional complaints Psych Reports no additional complaints Physical Exam Vital Signs: Last Vital Signs Temp 97.5 F 05/11/23 14:50 Pulse 118 H 05/11/23 14:50 BP 130/80 05/11/23 14:50 Pulse Ox 99 05/11/23 14:50 Oxygen Delivery Method Room Air 05/11/23 14:50 Patient is afebrile and tachycardic. Const General: cooperative, healthy appearing, comfortable and no acute distress Nutritional Appearance: well nourished Orientation/consciousness: patient oriented x3 Limitations: no limitations HEENT Head: Yes normal to inspection Ears: hearing grossly normal bilaterally, external ears normal, TM's normal bilaterally and EAC's normal General nose exam: Normal external nose present Face and sinus: Yes normal facial exam, No sinus tenderness and No Facial tenderness on exam of face and sinuses Mouth: Normal oral and palatal mucosa present Throat: Yes posterior oropharynx normal and No postnasal drainage Eyes General: appearance normal, both eyes and all related structures Conjunctivae: conjunctivae normal Sclerae: sclerae normal Pupils: Equal, round and reactive pupils present EOM: EOMs intact bilaterally Neck Lymphatic: no lymphadenopathy noted Resp Effort & Inspection: normal respiratory effort, able to speak in complete sentences and no respiratory distress Auscultation: clear to auscultation bilaterally and diminished lung sounds Cardio Rate: tachycardic Rhythm: regular rhythm Skin General skin exam: no rashes or lesions noted Neuro General: patient oriented x3 Cranial nerves: Yes Equal, round and reactive pupils present Extrem Other: no calf tenderness bilaterally Psych Appearance: grossly normal Mental Status: mental status grossly normal Insight: Good insight present (Psych) Judgement: Good judgement present (Psych) Results Reviewed Results Reviewed: EKG reveals sinus tachycardia at a rate of 109. Assessment & Plan Assessment & Plan (1) Tachycardia: Code(s): R00.0 - Tachycardia, unspecified Plan: Patient states that she has been tachycardic for over 1 month and feels that the metoprolol did not significantly change her heart rate. Patient continues to feel lightheaded and given her tachycardia I have strongly recommended that she go to the emergency department for further evaluation, laboratories and imaging immediately. The patient is declining to go to the emergency department today and will call her primary care provider and material assembler (who she has an appointment with on May 21) tomorrow morning for further recommendations. Orders: Orders AMB EKG-In Office Today R00.0 - Tachycardia, unspecified Coding Level of Care Code Est Pt Level 4 (68784) Diagnoses Tachycardia R00.0 Time Spent (min) 45
[2023-05-11 14:50] VITALS: BP 130/80; PULSE 118; TEMP 36.4; O2SAT 99
== END 2023-05-11 16:15 | disposition home or self-care (01) ==
PROVIDERS: PCP Internal Medicine; Visit Provider Physician Assistant
DX: R00.0 Tachycardia, unspecified (principal)
CPT/HCPCS: 99214

== ENCOUNTER 2023-05-17 11:12 | Outpatient (AMB) | payer MEDICARE, OTHER, SELFPAY ==
[2023-05-17 11:18] VITALS: BP 130/82; PULSE 120; O2SAT 100; BMI 28.0
--- NOTE | 2023-05-17 11:18 | A.OFFVIS_ITS ---
Intake Vital Signs 05/17/23 11:18 Height 5 ft 3 in Weight 158 lb BMI 28.0 BP 130/82 Blood Pressure Location Lt brachial Position Sitting Pulse 120 H Pulse Source Pulse Oximeter Pulse Oximetry (%) 100 Oxygen Delivery Method Room Air Intake Visit Reasons: COPD Intake Note: pt is here for follow up and states she has been out of her methlprednisone for over two weeks, having issues with dizziness that she is being worked up. 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 Allergies latex Allergy (Unknown, Verified 05/17/23 11:47) HIVES doxycycline Adverse Reaction (Verified 05/17/23 11:47) Irritable Medication List - Last Reconciled 05/17/23 by Alina Howard MD albuterol sulfate 90 mcg/actuation 2 puffs inhalation Q4-6H PRN 30 days albuterol sulfate 2.5 mg (3 mL) inhalation Q4H bupropion HCl PO clonazepam 0.5 mg PO DAILY PRN duloxetine 60 mg PO DAILY escitalopram oxalate 20 mg PO DAILY fluticasone furoate-vilanterol 200-25 mcg/dose (Breo Ellipta) 1 ea inhalation DAILY fluticasone propionate 50 mcg/actuation 1 spray intranasal DAILY losartan 50 mg PO DAILY methylprednisolone 4 mg PO BID pravastatin 40 mg PO DAILY Do you need a note to return to daycare/school/sports/work: No HPI COPD HPI Details Mikki is a long-term patient of mine for her breathing issues. She has a lifelong history of allergic rhinitis, bronchial asthma, and now chronic obstructive pulmonary disease. For many years she has been dependent on steroids, She used to be on relatively large does of prednisone or ia thigh I will prednisolone. We had treated her with Xolair injections to lower the dose of steroids and finally to take her off. However she became intolerant to the injection. And then she was started on Medrol 4 mg b.i.d. for acute symptoms, then gradually weaned down to 2 mg a day. This patient has not come for follow-up for the last hold 1 year. Now since about 2 weeks ago she she did not have her Medrol tablets. She claims that her health has deteriorated since then, especially in the last 1 week. However she does not have any significant nasal congestion postnasal drip wheezing or cough. Her main symptom is just feeling lightheaded, and weak in general. She has been evaluated at the ER of [facility], about a week ago and she was not told of any significant abnormalities. She saw her grants administrator to yesterday, who is planning to do 24 hours Holter monitor to rule out any arrhythmias. She is known to have chronic left bundle branch block. Today when she walked into the office she is weak and on stable on her feet, she is being supported by her for walking. However she denies any runny nose sneezing cough or wheezing. When I examine her I do not see her in any respiratory distress. [facility] Medical History Pneumonia COPD exacerbation Hypertension Hiatal hernia COPD (chronic obstructive pulmonary disease) Asthma Allergic rhinitis Social History Alcohol intake: never Patient Tobacco Use Status: Never used Tobacco Review of Systems Const All systems reviewed & are unremarkable except as noted in HPI and below Eyes Reports no additional complaints ENT Reports nasal congestion (Mild intermittent) Card Denies chest pain, Reports rapid heart rate (Occasional after using albuterol in nebulizer), Denies irregular heart rhythm and Denies leg edema Resp Reports as per HPI GI Reports no additional complaints Reports no additional complaints Musc Reports no additional complaints Skin/Breast Reports system reviewed and no additional complaints, except as documented Neuro Reports no additional complaints Psych Reports anxiety (Seems to be controlled) Endo Reports no additional complaints Physical Exam Vital Signs: Last Vital Signs Pulse 120 H 05/17/23 11:18 BP 130/82 05/17/23 11:18 Pulse Ox 100 05/17/23 11:18 Oxygen Delivery Method Room Air 05/17/23 11:18 BMI result Body Mass Index 28.0 Const General: comfortable, no acute distress, alert and awake Orientation/consciousness: patient oriented x3 HEENT Head: Yes normal to inspection General nose exam: No nasal polyps present and No nasal discharge present Face and sinus: Yes sinuses nontender Mouth: oropharynx normal Throat: Yes posterior oropharynx normal Eyes General: appearance normal, both eyes and all related structures Neck Neck: Yes normal visual inspection, Yes no lymphadenopathy, Yes trachea midline and Yes no JVD Thyroid: Thyroid normal Chest Chest palpation & inspection: normal inspection of the chest, normal palpation of entire chest wall and no tenderness Resp Other: PERCUSSION NOTE RESONANT, BREATH SOUNDS ARE DISTANT ON BOTH SIDES WITH PROLONGED EXPIRATORY PHASE. SHE DOES NOT HAVE ANY WHEEZES OR RHONCHI. Cardio Palpation: normal PMI Rate: regular rate Rhythm: regular rhythm Heart sounds: no gallops and no murmurs GI Palpation (GI): Soft to palpation, nontender, No hepatosplenomegaly present and no masses Auscultation: normal bowel sounds Back/Spine/Pelvis Thoracic/Lumbar Spine: thoracic and lumbar spine normal to inspection Skin General skin exam: no rashes or lesions noted Neuro General: patient oriented x3 and no focal motor deficits Cranial nerves: Yes CN's II-XII intact bilaterally Extrem General: Yes normal to inspection, Yes no clubbing, cyanosis or edema and Yes no calf tenderness Psych Appearance: grossly normal and well kempt Speech and movement: Normal speech and movement present Assessment & Plan Assessment & Plan (1) Asthma: Comment: SHE HAS HAD LIFELONG HISTORY OF BRONCHIAL ASTHMA, ALLERGIC TYPE, HAS USED XOLAIR IN THE PAST, SHE HAS BEEN DEPENDENT ON ORAL STEROIDS. THE DOSE OF MEDROL HAS BEEN CUT DOWN TO MINIMAL, 4 MG A DAY MOST OF THE TIME AND SOMETIME SHE HAS TO INCREASE TO 4 MG B.I.D. SHE ALSO HAS MODERATELY SEVERE OBSTRUCTIVE AIRWAY DISORDER (COPD ) Code(s): J45.909 - Unspecified asthma, uncomplicated Plan: I EXPLAINED TO HER THAT SHE REALLY DOES NOT HAVE ANY ACTIVE BRONCHOSPASM OR RUNNY NOSE AT THIS TIME. SO EVEN THOUGH SHE HAS NOT TAKEN MEDROL FOR ABOUT 7-10 DAYS , HER LUNGS ARE STILL CLEAR. SHE IS CONCERNED THAT SHE MAY BE HAVING SOME WITHDRAWAL EFFECT, AND THAT IS WHAT IS CAUSING HER GENERAL WEAKNESS AND LIGHTHEADEDNESS. SHE IS ADVISED : TO CONTINUE BREO 200-25 .1 INHALATION DAILY I WILL ADD MEDROL 4 MG TABLET START WITH 1 TABLET A DAY FOR HER 1ST FEW DAYS THEN REDUCE TO HALF TABLET A DAY. USE ALBUTEROL HFA OR ALBUTEROL IN THE NEBULIZER Q 6 HOURS ONLY P.R.N.. (2) COPD (chronic obstructive pulmonary disease): Comment: ABOVE UNDER ASTHMA. DUE TO HER LIFELONG HISTORY OF BRONCHIAL ASTHMA IT HAS NOW PROGRESSED TO CHRONIC OBSTRUCTIVE PULMONARY DISEASE. ( ASTHM/COPD SYNDROME ) Code(s): J44.9 - Chronic obstructive pulmonary disease, unspecified Plan: TREATMENT UNDER BRONCHIAL ASTHMA. (3) Allergic rhinitis: Comment: CHRONIC, PERRENEAL , SECONDARY TO ENVIRONMENTAL ALLERGIES. Code(s): J30.9 - Allergic rhinitis, unspecified Plan: TX: ALLERGEN AVOIDANCE, PATIENT IS WELL AWARE OF THAT, FLONASE 2 SPRAY EACH NOSTRIL DAILY. MONTELUKAST 10 MG DAILY CETIRIZINE 10 MG HAVE FOR 1 TABLET DAILY NEEDED Medications: Changed From methylprednisolone 4 mg PO BID 60 tabs 3RF To methylprednisolone 4 mg PO DAILY 30 tabs 5RF ASTHMA 30 days Coding Level of Care Code Est Pt Level 4 (32630) Diagnoses Asthma J45.909 COPD (chronic obstructive pulmonary disease) J44.9 Allergic rhinitis J30.9
== END 2023-05-17 11:45 | disposition home or self-care (01) ==
PROVIDERS: PCP Internal Medicine; Visit Provider Internal Medicine
DX: J45.909 Unspecified asthma, uncomplicated (principal); J44.9 Chronic obstructive pulmonary disease, unspecified; J30.9 Allergic rhinitis, unspecified
CPT/HCPCS: 99214

== ENCOUNTER → 2023-05-17 11:12 | Outpatient (BNVA) | payer MEDICARE, OTHER, SELFPAY | PROVIDERS: PCP Internal Medicine; Visit Provider Internal Medicine | DX: J44.9 Chronic obstructive pulmonary disease, unspecified (principal) | CPT/HCPCS: 99212 ==

== ENCOUNTER 2023-05-23 17:01 | Inpatient (IN) | payer MEDICARE, OTHER, SELFPAY ==
[2023-05-23] VITALS (8 sets, daily range): BP systolic 110–158; BP diastolic 45–89; PULSE 95–220; RESP 14–22; TEMP 36.8–37.9; O2SAT 88–95; BMI 30.8
--- NOTE | ~2023-05-23 | CT_ITS ---
EXAMINATION: CT head/brain wo IV con CLINICAL INFORMATION: Reason for Exam lethargy, disorientation COMPARISON: CT head 11/17/2020 TECHNIQUE: Contiguous axial imaging was performed from the skull base to vertex without intravenous contrast. Sagittal and coronal reformatted images were obtained. This CT examination was performed using dose optimization techniques as appropriate, variously including the following: * Automated exposure control * Adjustment of mA and/or kV according to patient size (this includes techniques or standardized protocols for targeted exams where dose is matched to indication/reason for exam; i.e. extremities or head) Use of iterative reconstruction technique DLP: 629.59 mGy-cm mGy-cm FINDINGS: There is no evidence of acute intracranial hemorrhage. Stable punctate hyperintensity in the right frontoparietal region, likely mineralization.No mass-effect or ventricular shift is noted. No acute, territorial loss of marvin-white differentiation. Mild generalized cerebral volume loss with associated ventricular and sulcal prominence.Periventricular and subcortical white matter hypodensity is nonspecific but likely represents chronic microvascular ischemic change. Intracranial atherosclerotic calcification is noted. No depressed calvarial fracture. The visualized paranasal sinuses are well-aerated. The mastoid air cells are clear. Bilateral intraocular lens replacements. CT/CT head/brain wo IV con IMPRESSION: No acute intracranial hemorrhage or territorial loss of marvin-white differentiation.
--- NOTE | ~2023-05-23 | XR_ITS ---
EXAMINATION: XR CHEST CLINICAL INFORMATION: Productive cough and shortness of breath COMPARISON: 04/01/2022 TECHNIQUE: Frontal view of the chest was obtained. FINDINGS: The lungs are hypoinflated. Heart size probably within normal limits allowing for technique. There may be mild central vascular prominence but no gross edema. Defibrillator defibrillator plates and monitoring material obscure detail. Bibasilar atelectasis is present. No large effusions. XR/XR chest 1V IMPRESSION: Hypoinflated lungs with bibasilar atelectasis.
--- NOTE | 2023-05-23 17:05 | ECG_ITS ---
Test Reason : tachycardia Blood Pressure : / mmHG Vent. Rate : 194 BPM Atrial Rate : 000 BPM P-R Int : 000 ms QRS Dur : 116 ms QT Int : 236 ms P-R-T Axes : 000 -09 161 degrees QTc Int : 424 ms Supraventricular tachycardia with Premature ventricular complexes or Fusion complexes Left bundle branch block Abnormal ECG When compared with ECG of 17-NOV-2020 15:59, Supraventricular tachycardia has replaced Normal sinus rhythm Premature ventricular complexes are now Present Vent. rate has increased BY 95 BPM Referred By: Generic ED Physician Electronically Signed By:CHARLES BARILLAS MD
--- NOTE | 2023-05-23 17:08 | PC.NURSE ---
alert and oriented to self only. unaware on where she is/why she's here/what year it is. pt is poor historian. biba from home after not feeling well x few weeks. pt's daughter called d/t increase in AMS/SOB. upon EMS arrival - pt's HR was 220bpm. 20gIV placed in the left wrist via EMS - EMS administered 6mg and then 12mg of adenosine with no break in HR. pt was then cardioverted w/ 50joules with no relief. upon ED arrival pt's HR displayed w/ 193bpm. provider bedide assessing pt. verbal order of metoprolol administered IVP - HR slowly starting to decrease at this time.
[2023-05-23] MEDS: Metoprolol Tartrate 5 MG/5 ML VIAL IVPUSH (17:14)
--- NOTE | 2023-05-23 17:19 | ED_ITS ---
HPI - SOB/Dyspnea General Chief Complaint: General Medical Stated Complaint: dizziness, tachycardia, HR of 200 Time Seen by Provider: 05/23/23 17:10 Source: patient Mode of arrival: EMS Limitations: no limitations History of Present Illness HPI Narrative: Patient is 67 years old with history COPD with episodes of palpitations seen criminal legal assistant has Holter monitor placed been not feeling well for last few weeks today patient was feeling very weak and short of breath when EMS arrived heart rate was into 20s narrow complex tachycardia patient received 18mg of Adenocard without much relief, all cardioverted at 50 joules with no relief on arrival patient's heart rate was in 190 range no fever no chills no chest pain patient feels weak and dizzy Related Data Home Medications Medication Instructions Recorded Confirmed bupropion HCl 200 mg tablet,12 hr 200 mg PO DAILY 06/25/20 05/23/23 sustained-release duloxetine 60 mg capsule,delayed 60 mg PO DAILY 06/25/20 05/23/23 release pravastatin 40 mg tablet 40 mg PO QPM 06/25/20 05/23/23 clonazepam 0.5 mg tablet 0.5 mg PO BID 02/23/21 05/23/23 escitalopram oxalate 20 mg tablet 20 mg PO Q48H 04/01/22 05/23/23 losartan 50 mg tablet 50 mg PO DAILY 04/01/22 05/23/23 methylprednisolone 4 mg tablet 4 mg PO Q48H ASTHMA 05/23/23 05/23/23 metoprolol tartrate 25 mg tablet 12.5 mg PO BID 05/23/23 05/23/23 pantoprazole 40 mg tablet,delayed 40 mg PO DAILY 05/23/23 05/23/23 release Previous Rx's Medication Instructions Recorded albuterol sulfate 90 mcg/actuation 2 puff inhalation Q4-6H PRN 04/20/21 aerosol inhaler shortness of breath or wheezing 30 days #8.5 grams albuterol sulfate 2.5 mg/3 mL 2.5 mg (3 mL) inhalation Q4H for 01/31/22 (0.083 %) solution for nebulization wheezing #150 mL Allergies Allergy/AdvReac Type Severity Reaction Status Date / Time latex Allergy Unknown HIVES Verified 05/23/23 17:08 doxycycline AdvReac Irritable Verified 05/23/23 17:08 Review of Systems 2 Review of Systems: Yes all other systems are reviewed and are negative [facility] Past Medical History Medical History Depression GERD (gastroesophageal reflux disease) Type 2 diabetes mellitus HLD (hyperlipidemia) AVNRT (AV janice re-entry tachycardia) Pneumonia Hypertension Hiatal hernia COPD (chronic obstructive pulmonary disease) Asthma Allergic rhinitis Social History Social History Unable to assess alcohol history related to: Unknown Alcohol intake: never Patient Tobacco Use Status: Never used Tobacco Use of substances other than those prescribed or required for medical reasons: Unknown Advance Directives: Yes Advance Directives Information Provided: No Advance Directives on File: No Nutrition Risks: No Nutritional Risk Physical Exam 2 Vital Signs: Vital Signs: Last Vital Signs Temp 98.3 F 05/23/23 21:25 Pulse 95 05/23/23 21:25 Resp 22 H 05/23/23 21:25 BP 120/45 L 05/23/23 21:25 Pulse Ox 95 05/23/23 21:25 O2 Del Method Nasal Cannula 05/23/23 21:25 O2 Flow Rate 2.5 05/23/23 21:25 BMI result Body Mass Index 30.8 Appearance: Alert. Oriented X3. No acute distress. Eyes: PERRLA, No Nystagmus ENT: Pharynx normal. Oral Mucosa moist Neck: Normal inspection. Neck supple. CVS: Regular tachycardia Pulses normal. No murmur/rub or gallop Respiratory: No respiratory distress. Equal air entry bilateral, no wheezing/rales/rhonchi Abdomen: Soft and nontender. Bowel sounds are present, no mass palpable, no CVA tenderness Skin: Skin warm and dry. Normal skin color. Normal skin turgor. Extremities: No lower extremity edema. No calf tenderness Neuro: Oriented X 3. No motor deficit. Medications Administered Generic Name Dose Route Start Last Admin Trade Name Freq PRN Reason Stop Dose Admin Diltiazem HCl 125 mg/ Sodium 125 mls @ 0 mls/hr 05/23/23 18:30 05/23/23 22:30 Chloride IVCONT 0 mg/hr .Q0M PADMINI 0 mls/hr Titration Protocol Per Protocol Metoprolol Tartrate 25 mg 05/23/23 21:00 05/23/23 21:20 Metoprolol Tartrate 25 Mg Tablet PO 25 mg BID PADMINI Administration Protocol Oseltamivir Phosphate 75 mg 05/23/23 21:00 05/23/23 21:20 Oseltamivir Phosphate 75 Mg Capsule PO 05/28/23 09:01 75 mg Q12H PADMINI Administration Sodium Chloride 3 ml 05/24/23 00:00 05/24/23 00:10 0.9 % Sodium Chloride Flush 3 Ml Syringe IVFLUSH 3 ml QSHIFT PADMINI Administration Discontinued Medications Generic Name Dose Route Start Last Admin Trade Name Elias PRN Reason Stop Dose Admin Apixaban 5 mg 05/23/23 18:27 05/23/23 18:40 Apixaban 5 Mg Tablet PO 05/23/23 18:28 5 mg ONCE ONE Administration Diltiazem HCl 10 mg 05/23/23 18:20 05/23/23 18:23 Diltiazem Hcl 50 Mg/10 Ml Vial IVPUSH 05/23/23 18:21 10 mg STAT STA Administration Diltiazem HCl 10 mg 05/23/23 18:26 05/23/23 18:24 Diltiazem Hcl 50 Mg/10 Ml Vial IVPUSH 05/23/23 18:27 10 mg STAT STA Administration Metoprolol Tartrate 5 mg 05/23/23 17:21 05/23/23 17:14 Metoprolol Tartrate 5 Mg/5 Ml Vial IVPUSH 05/23/23 17:22 5 mg ONCE ONE Administration Medical Decision Making Medical Decision Making [facility] Narrative: Patient with history of palpitations EKG showed atrial fibrillation with rapid ventricular rate improved after IV will Lopressor and Cardizem started on Cardizem drip will admit patient for atrial fibrillation with RVR started on Eliquis for chads score of 3 patient influenza A also came positive Differential Diagnosis Differential Diagnoses: The differential diagnosis associated with the presentation includes SVT/AFib/atrial flutter Admission/Observation Consideration of admission/observation: Escalation of care including admission/observation considered Consult Healthcare Provider Management of the patient was discussed with: Hospitalist Lab Data [facility] Lab Attestation statement: I reviewed the patient's lab results. 05/23/23 17:31 05/23/23 18:29 Labs: Lab Results 05/23/23 05/23/23 05/23/23 Range/Units 17:31 18:29 18:47 WBC 8.4 (4.8-10.8) X10*3/uL RBC 4.30 (4.20-5.50) X10*6/uL Hgb 13.3 (12.0-16.0) g/dl Hct 40.7 (37.0-47.0) % MCV 94.7 (80.0-98.0) fL MCH 30.9 (27.0-33.0) pg MCHC 32.7 (31.0-35.0) g/dl RDW 13.8 (11.0-16.0) % Plt Count 237 (160-400) X10*3/uL MPV 10.5 (9.4-12.3) fL Immature Gran % (Auto) 2.5 H (0.0-0.4) % Neut % (Auto) 81.9 H (45-73) % Lymph % (Auto) 4.9 L (20-40) % [place] % (Auto) 10.3 (2-11) % Eos % (Auto) 0.2 (0-4) % Baso % (Auto) 0.2 (0-2) % Lymph # (Auto) 0.4 L (1.2-4.9) X10*3/uL [place] # (Auto) 0.9 (0.1-1.2) X10*3/uL Eos # (Auto) 0.0 (0.0-0.4) X10*3/uL Baso # (Auto) 0.0 (0.0-0.2) X10*3/uL Abs Immat Gran (auto) 0.21 H (0.00-0.03) X10*3/uL Absolute Neuts (auto) 6.9 (2.0-8.3) x10*3/uL Absolute Nucleated RBC 0.000 (0.0-0.012) X10*3/uL Nucleated RBC % (auto) 0.0 (0.0-0.2) /100WBC PT 12.8 (11.1-13.3) SEC INR 1.1 (0.9-1.1) APTT 30.3 (26.0-36.4) SEC Sodium 137 (135-145) mmol/L Potassium 3.2 L D (3.3-5.1) mmol/L Chloride 103 (96-108) mmol/L Carbon Dioxide 25 (22-29) mmol/L Anion Gap 12 (12-20) BUN 6 L (9-16) mg/dL Creatinine 0.61 (0.5-1.4) mg/dL Estim Creat Clear Calc 84.5 Estimated GFR > 60 Random Glucose 223 H (60-115) mg/dL Calcium 8.5 (8.4-10.2) mg/dL Magnesium 1.7 (1.6-2.6) mg/dL Troponin I High Sens 37.2 H (<3.5-17.0) ng/L B-Natriuretic Peptide 265 H (<100) pg/mL TSH 0.92 (0.32-4.0) uIU/mL Influenza Type A (PCR) POSITIVE A (Negative) Influenza Type B (PCR) NEGATIVE (Negative) RSV RNA Qual (PCR) NEGATIVE (Negative) SARS-CoV-2 RNA (RT-PCR) NEGATIVE (Negative) Independent Interpretation I performed an independent interpretation of an: EKG Interpretation: Narrow complex tachycardia with heart rate of 94 beats per minute LVH no acute ischemic change Repeat EKG shows sinus rhythm with frequent PACs heart rate is in 80s no acute ischemic change Critical Care Time Critical Care Time Critical Care Time: Yes Total Critical Care Time: 60 Attestation: The patient was critically ill with a high probability of imminent or life threatening deterioration. I spent greater than 65 minutes of discontinuous time evaluating the patient,delivering critical care at the bedside, discussing and evaluating pertinent data with consultants. Critical care time does not include time spent performing separately billable procedures or teaching. Total time spent performing critical care was 60 minutes. Discharge Plan Discharge Clinical Impression: Atrial fibrillation with rapid ventricular response, Influenza A Patient Disposition: Admitted As Inpatient
--- NOTE | 2023-05-23 17:19 | ECG_ITS ---
Test Reason : TACHYCARDIA Blood Pressure : / mmHG Vent. Rate : 156 BPM Atrial Rate : 000 BPM P-R Int : 000 ms QRS Dur : 124 ms QT Int : 336 ms P-R-T Axes : 000 -10 143 degrees QTc Int : 541 ms Atrial fibrillation with rapid ventricular response Left bundle branch block Abnormal ECG When compared with ECG of 23-MAY-2023 17:14, Atrial fibrillation has replaced Sinus rhythm Vent. rate has increased BY 54 BPM Referred By: Collins Chapa Electronically Signed By:CHARLES BARILLAS MD
[2023-05-23 17:35] LABS: MANUAL DIFF FLAG NO
[2023-05-23 17:44] LABS: Basophils Percent Auto 0.2 % (0-2); Eosinophils Percent Auto 0.2 % (0-4); Hematocrit 40.7 % (37.0-47.0); Hemoglobin 13.3 g/dl (12.0-16.0); Imm Gran Abs Auto 0.21 X10*3/uL (0.00-0.03); Imm Gran Pct Auto 2.5 % (0.0-0.4); Lymphocytes Absolute Auto 0.4 X10*3/uL (1.2-4.9); Lymphocytes Percent Auto 4.9 % (20-40); Mean Corpuscular HGB Conc 32.7 g/dl (31.0-35.0); Mean Corpuscular Hemoglobin 30.9 pg (27.0-33.0); Mean Corpuscular Volume 94.7 fL (80.0-98.0); Mean Platelet Volume 10.5 fL (9.4-12.3); Monocytes Absolute Auto 0.9 X10*3/uL (0.1-1.2); Monocytes Percent Auto 10.3 % (2-11); Neutrophils Absolute Auto 6.9 x10*3/uL (2.0-8.3); Neutrophils Percent Auto 81.9 % (45-73); Platelet Count 237 X10*3/uL (160-400); Red Cell Distribution Width 13.8 % (11.0-16.0); White Blood Count 8.4 X10*3/uL (4.8-10.8)
--- NOTE | 2023-05-23 18:13 | ECG_ITS ---
Test Reason : tachycardia Blood Pressure : / mmHG Vent. Rate : 102 BPM Atrial Rate : 102 BPM P-R Int : 126 ms QRS Dur : 126 ms QT Int : 362 ms P-R-T Axes : 072 -15 146 degrees QTc Int : 471 ms Sinus tachycardia with frequent Premature ventricular complexes Left bundle branch block Abnormal ECG When compared with ECG of 23-MAY-2023 17:10, Normal sinus rhythm has replaced Supraventricular tachycardia Vent. rate has decreased BY 92 BPM Referred By: Collins Chapa Electronically Signed By:CHARLES BARILLAS MD
[2023-05-23] MEDS: dilTIAZem HCL 50 MG/10 ML VIAL 10 MG IVPUSH ×2 (18:23→18:24)
--- NOTE | 2023-05-23 18:25 | PC.NURSE ---
two doses of 10mg cardizem administered IVP d/t increase in pt's HR. pt remains tachy on the monitor w/ narrow complexes.
[2023-05-23] MEDS: Apixaban 5 MG TABLET PO (18:40)
[2023-05-23] MEDS: dilTIAZem HCL 125 MG in 0.9 % Sodium Chloride 100 ML 10 MG IVCONT (18:40)
[2023-05-23 18:43] LABS: INTERNATIONAL NORM RATIO 1.1 (0.9-1.1); Prothrombin Time 12.8 SEC (11.1-13.3)
[2023-05-23 18:46] LABS: Partial Thromboplastin Time 30.3 SEC (26.0-36.4)
[2023-05-23 18:53] LABS: Anion Gap 12 (12-20); Blood Urea Nitrogen 6 mg/dL (9-16); Calcium 8.5 mg/dL (8.4-10.2); Carbon Dioxide 25 mmol/L (22-29); Chloride 103 mmol/L (96-108); Creatinine Clr Calc Pharmacy 84.5; Estimated Glomerular Filt Rate > 60; Glucose Random 223 mg/dL (60-115); Magnesium 1.7 mg/dL (1.6-2.6); Potassium 3.2 mmol/L (3.3-5.1); Sodium 137 mmol/L (135-145)
--- NOTE | 2023-05-23 18:55 | PC.NURSE ---
cardizem drip titrated upward to 15mls/hr per titration protocol.
[2023-05-23 18:58] LABS: B Type Natriuretic Peptide 265 pg/mL (<100)
[2023-05-23 18:59] LABS: Troponin-I High Sensitivity 37.2 ng/L (<3.5-17.0)
[2023-05-23 19:29] LABS: Influenza A PCR POSITIVE (Negative); Influenza B PCR NEGATIVE (Negative); Resp Syncy Virus RNA Qual PCR NEGATIVE (Negative); SARS COV2 PCR INHOUSE NEGATIVE (Negative)
--- NOTE | 2023-05-23 20:14 | PC.NURSE ---
admitting provider bedside assessing pt at this time.
--- NOTE | 2023-05-23 20:42 | P.HPHOSP_ITS ---
History of Present Illness Date of Service: 05/23/23 <CARMELA Saenz - Last Filed: 05/23/23 21:06> Attending physician on admission: Dulce Mullins <CARMELA Saenz - Last Filed: 05/23/23 21:06> Chief Complaint: lightheadedness <CARMELA Saenz - Last Filed: 05/23/23 21:06> 67-year-old female with history of AVNRT, asthma/COPD overlap, depression, uop-ozljfgk-htyshetak type 2 diabetes, GERD, hypertension, hypercholesterolemia, history left bundle-branch block, chronic low back pain with bilateral radiculopathy, osteoporosis presents to the office today accompanied by for evaluation of general weakness, lightheadedness ongoing for several weeks. The patient appears confused, slow to respond to commands, history obtained primarily from . Over the last few days, she has also developed productive cough, sore throat, and shortness of breath. She has been seen at [facility] the ED multiple times for the lightheadedness and has also seen her breaker tender Dr. Quigley who ordered holter montitor x1 week which was applied on monday. Her also reports that she has seemed confused since this morning and slow to respond. He reports that she has not been out of bed much due to her the generalized weakness. Denies any fevers, chills, abdominal pain, nausea, vomiting, diarrhea, urinary symptoms, syncope, palpitations, chest pain. Per EMS, on arrival, patient was found be in narrow complex tachycardia with heart rate in the 220s. She was given 80 mg adenosine without effect. She was then cardioverted with 50 joules. EKG on arrival showed SVT with PVCs, rate [address] elevations. Repeat EKG showed atrial fibrillation with RVR, rate 156, no paula. On arrival, heart rate 193, no hypotension. Slightly elevated temperature of 100.2 degrees. She was hypoxic to 88% on room air placed on 2 L supplemental O2 maintaining oximetry 92-95%. Hematology studies unremarkable. Renal function baseline, electrolyte levels normal except for mild hypokalemia of 3.2. Initial troponin 37.2, repeat pending. BNP 265. She is negative for COVID-19 and RSV was positive for influenza A. In the ED, given 5 mg IV Lopressor, 10 mg IV diltiazem x2 and started on Cardizem drip per protocol. She was also given 1st dose of Eliquis. <CARMELA Saenz - Last Filed: 05/23/23 21:06> Review of Systems 2 Review of Systems: Yes Unobtainable due to mental status <CARMELA Saenz - Last Filed: 05/23/23 21:06> [facility] Medical History: Medical History Depression GERD (gastroesophageal reflux disease) Type 2 diabetes mellitus HLD (hyperlipidemia) AVNRT (AV janice re-entry tachycardia) Pneumonia Hypertension Hiatal hernia COPD (chronic obstructive pulmonary disease) Asthma Allergic rhinitis <CARMELA Saenz - Last Filed: 05/23/23 21:06> Social History: Social History Unable to assess alcohol history related to: Unknown Alcohol intake: never Patient Tobacco Use Status: Never used Tobacco Use of substances other than those prescribed or required for medical reasons: Unknown Advance Directives: Yes Advance Directives Information Provided: No Advance Directives on File: No Nutrition Risks: No Nutritional Risk <CARMELA Saenz - Last Filed: 05/23/23 21:06> Meds Allergies/Adverse reactions: Allergies Allergy/AdvReac Type Severity Reaction Status Date / Time latex Allergy Unknown HIVES Verified 05/23/23 17:08 doxycycline AdvReac Irritable Verified 05/23/23 17:08 <CARMELA Saenz - Last Filed: 05/23/23 21:06> Active Medications: Current Medications Diltiazem HCl 125 mg/ Sodium (Chloride) 125 mls @ 0 mls/hr IVCONT .Q0M PADMINI; Protocol Last Titration: 05/23/23 18:55 Dose: 15 mg/hr, 15 mls/hr <CARMELA Saenz - Last Filed: 05/23/23 21:06> Home medications: Home Medications Medication Instructions Recorded Confirmed Last Taken Type bupropion HCl 200 mg tablet,12 hr 200 mg PO DAILY 06/25/20 05/23/23 05/23/23 History sustained-release duloxetine 60 mg capsule,delayed 60 mg PO DAILY 06/25/20 05/23/23 05/23/23 History release pravastatin 40 mg tablet 40 mg PO QPM 06/25/20 05/23/23 05/22/23 History clonazepam 0.5 mg tablet 0.5 mg PO BID 02/23/21 05/23/23 05/23/23 History escitalopram oxalate 20 mg tablet 20 mg PO Q48H 04/01/22 05/23/23 Unknown History losartan 50 mg tablet 50 mg PO DAILY 04/01/22 05/23/23 05/23/23 History methylprednisolone 4 mg tablet 4 mg PO Q48H ASTHMA 05/23/23 05/23/23 Unknown History metoprolol tartrate 25 mg tablet 12.5 mg PO BID 05/23/23 05/23/23 05/23/23 History pantoprazole 40 mg tablet,delayed 40 mg PO DAILY 05/23/23 05/23/23 Unknown History release <CARMELA Saenz - Last Filed: 05/23/23 21:06> Physical Exam 2 Vital Signs and Narrative: Vital Signs: Last Vital Signs Temp 100.2 F 05/23/23 17:13 Pulse 100 05/23/23 20:14 Resp 16 05/23/23 20:14 BP 143/65 H 05/23/23 20:14 Pulse Ox 95 05/23/23 20:14 O2 Del Method Nasal Cannula 05/23/23 20:14 O2 Flow Rate 2.5 05/23/23 20:14 BMI result Body Mass Index 30.8 <CARMELA Saenz - Last Filed: 05/23/23 21:06> Constitutional - Awake and Alert, No apparent distress Eyes - PERRLA, EOMI Cardiovascular - S1S2, irregularly irregular, tachycardic, No edema Respiratory - Normal lung expansion, Normal respiratory effort, No respiratory distress, CTA bilaterally Gastrointestinal - NT / ND; +BS; No rebound or guarding Extremities - no calf tenderness bilaterally, no swelling Skin - Warm/Dry Neurological - Alert & oriented to self but refers to her maiden name, disoriented to place and time, slow to follow commands and respond, CN II-XII in tact, 5/5 strength BUE and BLE Psychological - Appropriate affect <CARMELA Saenz - Last Filed: 05/23/23 21:06> Results Labs CBC and Chem 7: 05/23/23 17:31 05/23/23 18:29 <CARMELA Saenz - Last Filed: 05/23/23 21:06> Labs: Laboratory Results - last 24 hr 05/23/23 05/23/23 05/23/23 17:31 18:29 18:47 MCV 94.7 MCH 30.9 MCHC 32.7 RDW 13.8 Plt Count 237 MPV 10.5 Immature Gran % (Auto) 2.5 H Neut % (Auto) 81.9 H Lymph % (Auto) 4.9 L [place] % (Auto) 10.3 Eos % (Auto) 0.2 Baso % (Auto) 0.2 Lymph # (Auto) 0.4 L [place] # (Auto) 0.9 Eos # (Auto) 0.0 Baso # (Auto) 0.0 Abs Immat Gran (auto) 0.21 H Absolute Neuts (auto) 6.9 Absolute Nucleated RBC 0.000 Nucleated RBC % (auto) 0.0 PT 12.8 INR 1.1 APTT 30.3 Anion Gap 12 Estim Creat Clear Calc 84.5 Estimated GFR > 60 Random Glucose 223 H Calcium 8.5 Magnesium 1.7 B-Natriuretic Peptide 265 H Influenza Type A (PCR) POSITIVE A Influenza Type B (PCR) NEGATIVE RSV RNA Qual (PCR) NEGATIVE SARS-CoV-2 RNA (RT-PCR) NEGATIVE <CARMELA Saenz - Last Filed: 05/23/23 21:06> Assessment and Plan (1) New onset atrial fibrillation: Status: Acute <CARMELA Saenz - Last Filed: 05/23/23 21:06> (2) Influenza: Status: Acute <CARMELA Saenz - Last Filed: 05/23/23 21:06> (3) Acute hypoxemic respiratory failure: Status: Acute <CARMELA Saenz - Last Filed: 05/23/23 21:06> (4) Metabolic encephalopathy: Status: Acute <CARMELA Saenz - Last Filed: 05/23/23 21:06> (5) SVT (supraventricular tachycardia): Status: Acute <CARMELA Saenz - Last Filed: 05/23/23 21:06> (6) Narrow complex tachycardia: Status: Acute <CARMELA Saenz - Last Filed: 05/23/23 21:06> 67-year-old female with history of AVNRT, asthma/COPD overlap, depression, uvi-ndyvsjx-tydtjaxmw type 2 diabetes, GERD, hypertension, hypercholesterolemia, history left bundle-branch block, chronic low back pain with bilateral radiculopathy, osteoporosis admitted for new onset atrial fibrillation with RVR and influenza A with acute hypoxemic respiratory failure and acute metabolic encephalopathy. # new onset atrial fibrillation with RVR -has history AVNRT following with Dr. Quigley -Per EMS narrow complex tachycardia requiring 80mg adenosine and cardioversion -continue Cardizem drip per protocol -resume metoprolol 25 mg b.i.d. -last echo at [facility] showed reduced LV systolic function with EF 40-45%. Echo ordered -chads 2 Vasc score 5. No contraindication to ACT. Start Eliquis 5 mg b.i.d. -cardiac diet -cardiology consult -monitor on telemetry # acute hypoxemic respiratory failure -likely secondary to above, less likely influenza -VBG pending -continue supplemental O2 to maintain oximetry greater than 92% # acute metabolic encephalopathy -likely secondary to influenza versus hypoxia -VBG, ammonia levels pending. Head CT pending. Renal function, hepatic function normal -UA pending -monitor mentation # influenza a -CXR pending -Tamiflu -symptomatic management -droplet/contact precautions # elevated troponins -likely demand secondary to AFib RVR -initial troponin 37, repeat pending -echo ordered, cardiology consult -monitor on telemetry # asthma/COPD overlap -no acute exacerbation -continue methylprednisolone, maintenance inhalers, albuterol p.r.n. # mood disorder -continue home medications # zpu-yysdlsd-zpktiqrrk type 2 diabetes-without hyperglycemia -last hemoglobin A1c 6.3% -POC glucose, diabetic diet, Humalog on sliding scale # hypertension -blood pressure reasonably controlled -continue metoprolol, losartan # hyperlipidemia -continue statin DVT prophylaxis-Eliquis Full code Patient requires inpatient stay at least 2 midnights for management of new onset atrial fibrillation with rapid ventricular rate with acute hypoxemic respiratory failure on Cardizem drip per protocol requiring titration and close cardiac monitoring as well as expert consultation. <CARMELA Saenz - Last Filed: 05/23/23 21:06> 67-year-old female with history of AVNRT, asthma/COPD overlap, depression, zdp-bdiwaot-gsreapffi type 2 diabetes, GERD, hypertension, hypercholesterolemia, history left bundle-branch block, chronic low back pain with bilateral radiculopathy, osteoporosis admitted for new onset atrial fibrillation with RVR and influenza A with acute hypoxemic respiratory failure and acute metabolic encephalopathy. # new onset atrial fibrillation with RVR -has history AVNRT following with Dr. Quigley -Per EMS narrow complex tachycardia requiring 80mg adenosine and cardioversion -continue Cardizem drip per protocol -resume metoprolol 25 mg b.i.d. -last echo at [facility] showed reduced LV systolic function with EF 40-45%. Echo ordered -chads 2 Vasc score 5. No contraindication to ACT. Start Eliquis 5 mg b.i.d. -cardiac diet -cardiology consult -monitor on telemetry # acute hypoxemic respiratory failure -likely due to influenza A -VBG pending -continue supplemental O2 to maintain oximetry greater than 92% # acute metabolic encephalopathy -likely secondary to influenza and hypoxia -VBG, ammonia levels pending. Head CT pending. Renal function, hepatic function normal -UA pending -monitor mentation # influenza a -CXR pending -Tamiflu -symptomatic management -droplet/contact precautions # elevated troponins -likely demand secondary to AFib RVR -initial troponin 37, repeat pending -echo ordered, cardiology consult -monitor on telemetry # asthma/COPD overlap -no acute exacerbation -continue methylprednisolone, maintenance inhalers, albuterol p.r.n. # mood disorder -continue home medications # leb-ujdbcsq-mjphzjqjg type 2 diabetes-without hyperglycemia -last hemoglobin A1c 6.3% -POC glucose, diabetic diet, Humalog on sliding scale # hypertension -blood pressure reasonably controlled -continue metoprolol, losartan # hyperlipidemia -continue statin DVT prophylaxis-Eliquis Full code Patient requires inpatient stay at least 2 midnights for management of new onset atrial fibrillation with rapid ventricular rate with acute hypoxemic respiratory failure on Cardizem drip per protocol requiring titration and close cardiac monitoring as well as expert consultation. <Dulce Mullins MD - Last Filed: 05/23/23 23:08> Quality Stroke Does the patient have a stroke diagnosis?: No <CARMELA Saenz - Last Filed: 05/23/23 21:06> VTE Prior VTE?: No <CARMELA Saenz - Last Filed: 05/23/23 21:06> VTE Risk Level:: Medical - moderate - high <CARMELA Saenz - Last Filed: 05/23/23 21:06> VTE Device Contraindication: Treatment Not Indicated <CARMELA Saenz - Last Filed: 05/23/23 21:06> VTE Drug Contraindication: N/A - Med Ordered <CARMELA Saenz - Last Filed: 05/23/23 21:06>
--- NOTE | 2023-05-23 20:50 | PC.NURSE ---
cardizem drip started at 10mls/hr per protocol.
--- NOTE | 2023-05-23 20:52 | PC.NURSE ---
pt to CT at this time. RN bedside w/ pt in CT at this time.
[2023-05-23] MEDS: Metoprolol Tartrate 25 MG TABLET PO (21:20)
[2023-05-23] MEDS: Oseltamivir Phosphate 75 MG CAPSULE PO (21:20)
[2023-05-23 21:49] LABS: Venous Blood Gas Refer to POC result
[2023-05-23 21:49] LABS: VBG Base Excess 3.8 mmol/L; VBG HCO3 26 mmol/L (22-26); VBG pCO2 33 mmHg; VBG pO2 65 mmHg
[2023-05-23 21:52] LABS: Appearance Urine Clear; Color Urine Yellow; Glucose Urine UA Negative (Negative); Leukocyte Esterase Urine Large (3+) (Negative); Nitrite Urine Negative (Negative); PH 6.5 (5.0-9.0); UMIC TRIGGER UACC YES; Urine Blood Negative (Negative); Urine Ketones Negative (Negative); Urine Protein Negative (Neg-Trace)
[2023-05-23 21:55] LABS: Ammonia 26 umol/L (13-55)
[2023-05-23 22:03] LABS: Bacteria Urine 1+ (None Seen); Hyaline Casts Urine 0-2 /LPF (0-2); RBC Urine 0-2 /HPF (0-2); UACC Culture Trigger YES; WBC Urine 21-50 /HPF (0-5)
[2023-05-23 22:17] LABS: Troponin-I High Sensitivity 151.1 ng/L (<3.5-17.0)
--- NOTE | 2023-05-23 22:31 | PC.NURSE ---
Pt resting at the bedside. No apparent distress noted. NSR with frequent PVC's on monitor. HR 76. Diltiazem drip paused at this time per protocol. Pending bed assignment. Pt aware of plan of care.
--- NOTE | 2023-05-23 22:45 | PHA.MEDREC ---
Pharmacy Consult ? Medication Reconciliation Pharmacy has completed the medication reconciliation. Spoke to patient and family member at bedside to confirm medication list. Even though patient has rx for metoprolol 25mg BID, she is taking 12.5mg BID.
[2023-05-24] VITALS (11 sets, daily range): BP systolic 117–131; BP diastolic 57–77; PULSE 70–95; RESP 16–24; TEMP 36.1–37.6; O2SAT 94–98; BMI 30.8
[2023-05-24 00:02] LABS: Thyroid Stimulating Hormone 0.92 uIU/mL (0.32-4.0)
[2023-05-24] MEDS: 0.9 % Sodium Chloride Flush 3 ML SYRINGE IVFLUSH ×4 (00:10→20:09)
[2023-05-24] MEDS: guaiFENesin 200 MG/10 ML 10 ML LIQUID PO ×2 (02:59→20:06)
--- NOTE | 2023-05-24 03:01 | PC.NURSE ---
Pt alert to self. Calm and cooperative. Reports being confused and fuzzy . Able to state with difficulty. Reports chest discomfort with cough. NSR with pvc's on monitor. HR 90. Breaths are even regular and unlabored. O2 sat 97% on 2.5L nc. Medicated with prn meds. Plan of care discussed with pt and oriented to date, place, and situation. Pending bed assignment. Personal items and call euceda placed within reach.
[2023-05-24 06:46] LABS: MANUAL DIFF FLAG NO
[2023-05-24 06:50] LABS: Basophils Percent Auto 0.3 % (0-2); Eosinophils Percent Auto 0.1 % (0-4); Hematocrit 39.4 % (37.0-47.0); Hemoglobin 12.9 g/dl (12.0-16.0); Imm Gran Abs Auto 0.13 X10*3/uL (0.00-0.03); Imm Gran Pct Auto 1.9 % (0.0-0.4); Lymphocytes Absolute Auto 0.8 X10*3/uL (1.2-4.9); Lymphocytes Percent Auto 11.4 % (20-40); Mean Corpuscular HGB Conc 32.7 g/dl (31.0-35.0); Mean Corpuscular Hemoglobin 30.6 pg (27.0-33.0); Mean Corpuscular Volume 93.4 fL (80.0-98.0); Mean Platelet Volume 10.5 fL (9.4-12.3); Monocytes Absolute Auto 1.2 X10*3/uL (0.1-1.2); Monocytes Percent Auto 17.6 % (2-11); Neutrophils Absolute Auto 4.8 x10*3/uL (2.0-8.3); Neutrophils Percent Auto 68.7 % (45-73); Platelet Count 255 X10*3/uL (160-400); Red Blood Count 4.22 X10*6/uL (4.20-5.50); Red Cell Distribution Width 14.1 % (11.0-16.0)
--- NOTE | 2023-05-24 07:00 | CA_ITS ---
Transthoracic Echocardiogram Patient (Last, First, Middle): Mikki Rush E Gender: Female Date of : 1955 Age: 67 Procedure Date: 05/24/2023 Procedure Type: Transthoracic Echocardiogram Location: ER Height: 157.48 cm Weight: 76.2 kg BSA: 1.77 m2 Heart Rate: bpm BP: 129 / 76 mmHg Paving Supervisor: JESSY Referring MD: Sruthi CASEY [employer]: Griffin Beltran MD Symptoms: new onset afib Study Quality: Fair w Contrast ECG Rhythm: Sinus with extra beats Conclusions: - 1. [id number] LV systolic dysfunction with LVEF of 40-45% with grade 2 diastolic dysfunction 2. Cardiac valves not well visualized but cardiac valvular Dopplers appear to be within normal limits 3. Normal measured RV systolic pressure 4. No gross pericardial effusion Findings Procedure Information Contrast agent, definity, is being given per protocol without apparent complications. Left Ventricle Normal left ventricular cavity size. There is normal left ventricular wall thickness. The left ventricular systolic function is mild to moderately decreased. The visually estimated ejection fraction is between 40-45%. There is paradoxical septal motion consistent with a left bundle branch block. Spectral Doppler is indicative of a pseudonormal filling pattern. E/E prime ratio is >15, consistent with elevated filling pressures. Evidence suggests grade II (moderate) diastolic dysfunction. Right Ventricle Normal right ventricular cavity size and systolic function. Atria The left atrium is normal in size. Interatrial shunt cannot be excluded. The right atrium is normal in size. Aortic Valve The aortic valve was not well visualized. There is mild calcification of the aortic valve. There is no aortic valve stenosis. There is no aortic valve regurgitation. Mitral Valve The mitral valve was not well visualized. There is no mitral valve regurgitation. There is no mitral valve stenosis. Pulmonic Valve The pulmonic valve was not well visualized. Tricuspid Valve Likely normal tricuspid valve structure and function. There is mild tricuspid valve regurgitation. The right ventricular systolic pressure is normal. The right ventricular systolic pressure is 23 mmHg. Normal right atrial pressure. There is no evidence of pulmonary hypertension. Great Vessels The pulmonary artery was not well visualized. There is no dilatation of the ascending aorta measuring 2.90 cm. Venous The inferior vena cava is normal in size and collapses greater than 50% with inspiration. Pericardium/Pleural There is no evidence of pericardial effusion. Prior Study Comparison No prior study available for comparison. Measurements 2D Linear Measurements IVSd: 1.33 0.6-0.9/0.6-1.0 cm LVIDd: 3.59 3.9-5.3/4.2-5.9 cm LVIDd Index: 2.03 2.4-3.2/2.2-3.1 cm/m2 LVIDs: 2.87 2.0-3.6 cm LVPWd: 1.27 0.7-1.1 cm Ao Root: 2.60 2.1-3.5 cm LA Diam: 3.30 2.7-3.8/3.0-4.0 cm LAIDs Index: 1.86 1.5-2.3 cm/m2 LV Mass: 198.54 67-162/88-224 g LV Mass Index: 112.17 43-95/49-115 g/m2 LVOT Diam: 1.80 3.0+(-)1.3 cm 2D Systolic Function EF 4C: 41.70 >55% EF 2C: 46.10 >55% EF BiP: 43.40 >55% Mitral Valve MV Pk E: 1.11 MV PK A: 1.01 MV Decel Time: 265.00 E/A: 1.10 E'Lateral: 5.87 E'Medial: 3.59 E/E' Med: 30.90 E/E' Lat: 18.90 PHT: 77.00 MVA PHT: 2.86 Decel [place]: 4.20 Aortic Valve AoV Pk Harvinder: 1.55 AoV Mn Harvinder: 1.07 AoV VTI: 0.35 AoV Pk Grad: 10.00 Aov Mn Grad: 5.00 SANJAY Cont.VTI: 1.06 LVOT LVOT Pk Harvinder: 0.74 LVOT Mn Harvinder: 0.53 LVOT VTI: 0.15 LVOT Pk Grad: 2.00 LVOT Mn Grad: 1.00 LVOT Diam: 1.80 LVOT Area: 2.54 Diastolic Function MV Pk E: 1.11 MV Pk A: 1.01 E/A: 1.10 E'Medial: 3.59 E/E' Med: 30.90 E' Laterial: 5.87 E/E' Lat: 18.90 Right Ventricle TAPSE (mm): 26.00 TVS' Harvinder: 10.00 Tricuspid Valve TR Pk Harvinder: 2.23 TR Pk Grad: 20.00 RA Press: 3.00 RVSP: 23.00 Great Vessels Aorta Ao Root-2D: 2.60 2.0-3.7 cm Ao Asc: 2.90 2.1-3.4 cm Pulmonary Valve PV Pk Harvinder: 1.18 Peak PV Grad: 6.00 Updated in Other Vendor System with Status of Final Griffin Beltran MD electronically signed on 05/24/2023 4:25:12 PM with status of Final
[2023-05-24 07:01] LABS: Anion Gap 12 (12-20); Blood Urea Nitrogen 7 mg/dL (9-16); Calcium 8.4 mg/dL (8.4-10.2); Carbon Dioxide 26 mmol/L (22-29); Chloride 101 mmol/L (96-108); Creatinine Clr Calc Pharmacy 92.1; Estimated Glomerular Filt Rate > 60; Glucose Random 108 mg/dL (60-115); Sodium 136 mmol/L (135-145)
[2023-05-24] MEDS: Albuterol Sulfate (0.083%) 2.5 MG/3 ML VIAL.NEB INHALE ×4 (07:59→19:02)
[2023-05-24 08:34] LABS: Troponin-I High Sensitivity 266.4 ng/L (<3.5-17.0)
[2023-05-24] MEDS: clonazePAM 0.5 MG TABLET PO ×2 (08:38→20:06)
[2023-05-24] MEDS: Oseltamivir Phosphate 75 MG CAPSULE PO ×2 (08:38→20:06)
[2023-05-24] MEDS: Losartan Potassium 50 MG TABLET PO (08:38)
[2023-05-24] MEDS: DULoxetine HCl 60 MG CAPSULE.DR PO (08:38)
[2023-05-24] MEDS: Escitalopram Oxalate 20 MG TABLET PO (08:38)
[2023-05-24] MEDS: Metoprolol Tartrate 25 MG TABLET PO ×2 (08:38→20:06)
[2023-05-24] MEDS: Apixaban 5 MG TABLET PO ×2 (08:39→20:06)
[2023-05-24] MEDS: Potassium Chloride Packet 20 MEQ PACKET 40 MEQ PO (08:39)
[2023-05-24] MEDS: Omeprazole 20 MG CAPSULE.DR PO (08:39)
[2023-05-24] MEDS: predniSONE 20 MG TABLET 40 MG PO (11:40)
--- NOTE | 2023-05-24 13:06 | PM.CNCAR ---
History of Present Illness History of Present Illness Date of Service: 05/24/23 Requesting physician: Sruthi Cervantes Consult reason: atrial fibrillation Chief complaint: new onset afib rvr, flu, encephalopathy Narrative: I was consulted to see Mikki in cardiology consultation today for atrial fibrillation. Patient 67-year-old female not a very good historian with history of COPD, hypertension, SVT, left bundle-branch block, nonobstructive coronary artery disease by cardiac catheterization anxiety came to the hospital because she says she was feeling dizzy and had somewhat change in mental status. Patient came to the emergency room and was noted to be in hypoxic respiratory failure with diffuse wheezing. While in the hospital she developed rapid heart rate which initially appears to be SVT with left bundle-branch block and subsequently she went into atrial fibrillation rapid ventricular response. She was then started IV Cardizem and has overnight converted to sinus rhythm with intermittent PVCs. She had an echocardiogram in [facility] in March which showed LVEF of about 45-50%. She denies any history of congestive heart failure. She said she had an ablation for SVT many years ago. She does not recall the name of her horser up or primary care physician. She said when her heart was going rapid and they were asking her she had no symptoms of palpitations. No syncopal episodes. No orthopnea, PND, leg edema. Review of Systems Constitutional: Constitutional: Denies chills, Denies fever(s), Reports frequent falls and Reports weakness Eyes: Eyes: Reports no additional eye complaints Cardiovascular: Cardiovascular: Denies chest pain, Reports dyspnea on exertion and Reports other (Dizziness) Respiratory: Respiratory: Reports cough, Reports dyspnea on exertion and Reports wheezing Gastrointestinal: Gastrointestinal: Reports no additional gastrointestinal complaints Neurologic: Reports system reviewed and no additional complaints, except as documented, Reports confusion, Reports frequent falls and Reports weakness Psychiatric: Psychiatric: Reports confusion Allergic/Immunologic: Allergic/Immunologic: Reports wheezing [facility] Past Medical History Medical History Depression GERD (gastroesophageal reflux disease) Type 2 diabetes mellitus HLD (hyperlipidemia) AVNRT (AV janice re-entry tachycardia) Pneumonia Hypertension Hiatal hernia COPD (chronic obstructive pulmonary disease) Asthma Allergic rhinitis Social History Social History Unable to assess alcohol history related to: Unknown Alcohol intake: never Patient Tobacco Use Status: Never used Tobacco Use of substances other than those prescribed or required for medical reasons: Unknown Advance Directives: Yes Advance Directives on File: Yes Advance Directives Date on File: 05/24/23 Nutrition Risks: No Nutritional Risk Meds Allergies Allergy/AdvReac Type Severity Reaction Status Date / Time latex Allergy Unknown HIVES Verified 05/23/23 17:08 doxycycline AdvReac Irritable Verified 05/23/23 17:08 Active Medications: Current Medications Acetaminophen (Acetaminophen 325 Mg Tablet) 650 mg PO Q6H PRN PRN Reason: Pain, Mild (Pain Scale 1-3) Albuterol Sulfate (Albuterol Sulfate (0.083%) 2.5 Mg/3 Ml Vial.Neb) 2.5 mg INHALE RQ4H [facility] Last Admin: 05/24/23 11:24 Dose: 2.5 mg Albuterol Sulfate (Albuterol Sulfate 90 Mcg 8 Gm Inhaler) 2 puff INHALE Q4H PRN PRN Reason: shortness of breath or wheezing Apixaban (Apixaban 5 Mg Tablet) 5 mg PO BID [facility] Last Admin: 05/24/23 08:39 Dose: 5 mg Clonazepam (Clonazepam 0.5 Mg Tablet) 0.5 mg PO BID [facility] Last Admin: 05/24/23 08:38 Dose: 0.5 mg Duloxetine HCl (Duloxetine Hcl 60 Mg Capsule.Dr) 60 mg PO DAILY [facility] Last Admin: 05/24/23 08:38 Dose: 60 mg Escitalopram Oxalate (Escitalopram Oxalate 20 Mg Tablet) 20 mg PO Q48H [facility] Last Admin: 05/24/23 08:38 Dose: 20 mg Guaifenesin (Guaifenesin 200 Mg/10 Ml 10 Ml Liquid) 10 ml PO Q6H PRN PRN Reason: Cough Last Admin: 05/24/23 02:59 Dose: 10 ml Diltiazem HCl 125 mg/ Sodium (Chloride) 125 mls @ 0 mls/hr IVCONT .Q0M [facility]; Protocol Last Titration: 05/23/23 22:30 Dose: 0 mg/hr, 0 mls/hr Losartan Potassium (Losartan Potassium 50 Mg Tablet) 50 mg PO DAILY [facility]; Protocol Last Admin: 05/24/23 08:38 Dose: 50 mg Metoprolol Tartrate (Metoprolol Tartrate 25 Mg Tablet) 25 mg PO BID [facility]; Protocol Last Admin: 05/24/23 08:38 Dose: 25 mg Non-Formulary Medication (Bupropion Hcl) 200 mg PO DAILY [facility] Omeprazole (Omeprazole 20 Mg Capsule.Dr) 20 mg PO DAILY@0630 [facility] Last Admin: 05/24/23 08:39 Dose: 20 mg Ondansetron HCl (Ondansetron Hcl 4 Mg/2 Ml Vial) 4 mg IVPUSH Q8H PRN PRN Reason: Nausea and Vomiting Oseltamivir Phosphate (Oseltamivir Phosphate 75 Mg Capsule) 75 mg PO Q12H [facility] Stop: 05/28/23 09:01 Last Admin: 05/24/23 08:38 Dose: 75 mg Pravastatin Sodium (Pravastatin Sodium 40 Mg Tablet) 40 mg PO BEDTIME [facility] Prednisone (Prednisone 20 Mg Tablet) 40 mg PO DAILY [facility] Last Admin: 05/24/23 11:40 Dose: 40 mg Senna (Sennosides 8.6 Mg Tablet) 17.2 mg PO BEDTIME PRN PRN Reason: Constipation Sodium Chloride (0.9 % Sodium Chloride Flush 3 Ml Syringe) 3 ml IVFLUSH QSHIFT [facility] Last Admin: 05/24/23 09:54 Dose: 3 ml Home Medications Medication Instructions Recorded Confirmed Last Taken Type bupropion HCl 200 mg tablet,12 hr 200 mg PO DAILY 06/25/20 05/23/23 05/23/23 History sustained-release duloxetine 60 mg capsule,delayed 60 mg PO DAILY 06/25/20 05/23/23 05/23/23 History release pravastatin 40 mg tablet 40 mg PO QPM 06/25/20 05/23/23 05/22/23 History clonazepam 0.5 mg tablet 0.5 mg PO BID 02/23/21 05/23/23 05/23/23 History escitalopram oxalate 20 mg tablet 20 mg PO Q48H 04/01/22 05/23/23 Unknown History losartan 50 mg tablet 50 mg PO DAILY 04/01/22 05/23/23 05/23/23 History methylprednisolone 4 mg tablet 4 mg PO Q48H ASTHMA 05/23/23 05/23/23 Unknown History metoprolol tartrate 25 mg tablet 12.5 mg PO BID 05/23/23 05/23/23 05/23/23 History pantoprazole 40 mg tablet,delayed 40 mg PO DAILY 05/23/23 05/23/23 Unknown History release Physical Exam Vital Signs: Vital Signs: Last Vital Signs Temp 98.7 F 05/24/23 07:42 Pulse 80 05/24/23 11:25 Resp 16 05/24/23 11:25 BP 122/77 05/24/23 07:42 Pulse Ox 97 05/24/23 07:42 O2 Del Method Nasal Cannula 05/24/23 07:42 O2 Flow Rate 3 05/24/23 07:42 BMI result Body Mass Index 30.8 Const: General: cooperative, comfortable, alert, awake, in distress mild and respiratory and confusion Nutritional Appearance: overweight Orientation/consciousness: confusion HEENT: Head: Yes normocephalic and Yes atraumatic Neck: Neck: Yes trachea midline, Yes supple and Yes no JVD Resp: Effort & Inspection: normal respiratory effort Auscultation: wheezes scattered wheezes and diminished lung sounds Cardio: Jugular venous distension: no JVD Rhythm: abnormal rhythm with ectopic beats Heart sounds: S1 normal heart sound present, S2 normal heart sound present, no click, no gallops, no murmurs and no rubs GI: Auscultation: normal bowel sounds Skin: General skin exam: no rashes or lesions noted Neuro: General: no focal motor deficits and confusion Extrem: General: Yes no clubbing, cyanosis or edema Objective Labs and Meds 05/24/23 05:41 05/24/23 05:41 Lab results: Laboratory Results - last 24 hr 05/23/23 05/23/23 05/23/23 17:31 18:29 18:47 WBC 8.4 RBC 4.30 Hgb 13.3 Hct 40.7 MCV 94.7 MCH 30.9 MCHC 32.7 RDW 13.8 Plt Count 237 MPV 10.5 Immature Gran % (Auto) 2.5 H Neut % (Auto) 81.9 H Lymph % (Auto) 4.9 L Iron % (Auto) 10.3 Eos % (Auto) 0.2 Baso % (Auto) 0.2 Lymph # (Auto) 0.4 L Iron # (Auto) 0.9 Eos # (Auto) 0.0 Baso # (Auto) 0.0 Abs Immat Gran (auto) 0.21 H Absolute Neuts (auto) 6.9 Absolute Nucleated RBC 0.000 Nucleated RBC % (auto) 0.0 PT 12.8 INR 1.1 APTT 30.3 VBG pH VBG pCO2 VBG pO2 VBG HCO3 VBG O2 Saturation VBG Base Excess Sodium 137 Potassium 3.2 L D Chloride 103 Carbon Dioxide 25 Anion Gap 12 BUN 6 L Creatinine 0.61 Estim Creat Clear Calc 84.5 Estimated GFR > 60 Random Glucose 223 H Calcium 8.5 Magnesium 1.7 Ammonia Troponin I High Sens 37.2 H B-Natriuretic Peptide 265 H TSH 0.92 Urine Color Urine Appearance Urine pH Ur Specific [place] Urine Protein Urine Glucose (UA) Urine Ketones Urine Blood Urine Nitrite Ur Leukocyte Esterase Urine RBC Urine WBC Ur Squamous Epith Cells Urine Bacteria Hyaline Casts Influenza Type A (PCR) POSITIVE A Influenza Type B (PCR) NEGATIVE RSV RNA Qual (PCR) NEGATIVE SARS-CoV-2 RNA (RT-PCR) NEGATIVE 05/23/23 05/23/23 05/24/23 21:35 21:44 05:41 WBC 7.0 RBC 4.22 Hgb 12.9 Hct 39.4 MCV 93.4 MCH 30.6 MCHC 32.7 RDW 14.1 Plt Count 255 MPV 10.5 Immature Gran % (Auto) 1.9 H Neut % (Auto) 68.7 Lymph % (Auto) 11.4 L Iron % (Auto) 17.6 H Eos % (Auto) 0.1 Baso % (Auto) 0.3 Lymph # (Auto) 0.8 L Iron # (Auto) 1.2 Eos # (Auto) 0.0 Baso # (Auto) 0.0 Abs Immat Gran (auto) 0.13 H Absolute Neuts (auto) 4.8 Absolute Nucleated RBC 0.000 Nucleated RBC % (auto) 0.0 PT INR APTT VBG pH 7.50 H VBG pCO2 33 VBG pO2 65 VBG HCO3 26 VBG O2 Saturation 93.0 VBG Base Excess 3.8 Sodium 136 Potassium 3.0 L Chloride 101 Carbon Dioxide 26 Anion Gap 12 BUN 7 L Creatinine 0.56 Estim Creat Clear Calc 92.1 Estimated GFR > 60 Random Glucose 108 Calcium 8.4 Magnesium Ammonia 26 Troponin I High Sens 151.1 H* D B-Natriuretic Peptide TSH Urine Color Yellow Urine Appearance Clear Urine pH 6.5 Ur Specific [place] 1.010 Urine Protein Negative Urine Glucose (UA) Negative Urine Ketones Negative Urine Blood Negative Urine Nitrite Negative Ur Leukocyte Esterase Large (3+) H Urine RBC 0-2 Urine WBC 21-50 H Ur Squamous Epith Cells 3-5 Urine Bacteria 1+ Hyaline Casts 0-2 Influenza Type A (PCR) Influenza Type B (PCR) RSV RNA Qual (PCR) SARS-CoV-2 RNA (RT-PCR) 05/24/23 08:05 WBC RBC Hgb Hct MCV MCH MCHC RDW Plt Count MPV Immature Gran % (Auto) Neut % (Auto) Lymph % (Auto) Iron % (Auto) Eos % (Auto) Baso % (Auto) Lymph # (Auto) Iron # (Auto) Eos # (Auto) Baso # (Auto) Abs Immat Gran (auto) Absolute Neuts (auto) Absolute Nucleated RBC Nucleated RBC % (auto) PT INR APTT VBG pH VBG pCO2 VBG pO2 VBG HCO3 VBG O2 Saturation VBG Base Excess Sodium Potassium Chloride Carbon Dioxide Anion Gap BUN Creatinine Estim Creat Clear Calc Estimated GFR Random Glucose Calcium Magnesium Ammonia Troponin I High Sens 266.4 H* D B-Natriuretic Peptide TSH Urine Color Urine Appearance Urine pH Ur Specific [place] Urine Protein Urine Glucose (UA) Urine Ketones Urine Blood Urine Nitrite Ur Leukocyte Esterase Urine RBC Urine WBC Ur Squamous Epith Cells Urine Bacteria Hyaline Casts Influenza Type A (PCR) Influenza Type B (PCR) RSV RNA Qual (PCR) SARS-CoV-2 RNA (RT-PCR) Imaging Radiologist's impression: Impressions Chest X-Ray 05/23/23 20:55 IMPRESSION: Hypoinflated lungs with bibasilar atelectasis. Head CT 05/23/23 21:07 IMPRESSION: No acute intracranial hemorrhage or territorial loss of marvin-white differentiation. Assessment and Plan (1) Paroxysmal atrial fibrillation: Status: Acute Patient developed atrial fibrillation when admitted with acute hypoxemic respiratory failure related to COPD exacerbation secondary to influenza. Patient has reverted back to sinus rhythm after treatment for her hypoxemia as well as with rate control with diltiazem. Patient nonobstructive CAD from prior history as well as hypertension with mild noted LV systolic dysfunction by echocardiogram at [facility] probably related to PVCs. Patient no symptoms with her atrial fibrillation and/or SVT. She has baseline known prior left bundle-branch block. 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 Agree with oral anticoagulation with Eliquis. Will require outpatient follow up with Holter monitor. Treatment of underlying pulmonary disease and parenchymal disease. Would switch her to pulmonary specific bronchodilators such as Xopenex. Her minimal troponin release of flat and probably related to myocardial injury from hypoxemia and cardiac arrhythmias and unlikely to be acute myocardial infarction. Her BNP elevation also probably related to RV strain related to hypoxemic respiratory failure. She clinically is not in heart failure. Will sign of the case and follow-up as outpatient. Thank you for allowing me to partake in her care Procedures Date of Service Date of Service: 05/24/23
--- NOTE | 2023-05-24 16:03 | P.PNIM_ITS ---
Subjective Subjective Date of Service: 05/24/23 Interval History: Seen in follow up for afib with rvr, influenza, hypoxia Interval history: More oriented this morning, does not recall yesterday's events. Reports pleuritic cp, wheezing, and productive cough. No sob, palptiations, lightheadedness. Afebrile Review of Systems Review of Systems: Yes all other systems are reviewed and are negative Physical Exam 2 Vital Signs: Vital Signs: Last Vital Signs Temp 99.7 F 05/24/23 15:29 Pulse 81 05/24/23 15:29 Resp 17 05/24/23 15:29 BP 125/71 05/24/23 15:29 Pulse Ox 96 05/24/23 15:29 O2 Del Method Room Air 05/24/23 15:29 O2 Flow Rate 3 05/24/23 07:42 BMI result Body Mass Index 30.8 Constitutional - Awake and Alert, No apparent distress Eyes - PERRLA, EOMI Cardiovascular - S1S2, RRR, No edema Respiratory - Normal lung expansion, Normal respiratory effort, No respiratory distress, scattered expiratory wheezes, diminished bases Gastrointestinal - NT / ND; +BS; No rebound or guarding Extremities - no calf tenderness bilaterally, no swelling Skin - Warm/Dry Neurological - Alert & oriented x3, but still slow to respond, answering questions appropriately, CN II-XII in tact Psychological - Appropriate affect Objective Data Active Medications Acetaminophen (Acetaminophen 325 Mg Tablet) 650 mg PO Q6H PRN PRN Reason: Pain, Mild (Pain Scale 1-3) Albuterol Sulfate (Albuterol Sulfate (0.083%) 2.5 Mg/3 Ml Vial.Neb) 2.5 mg INHALE RQ4H [facility] Last Admin: 05/24/23 15:25 Dose: 2.5 mg Documented By: DANYA Albuterol Sulfate (Albuterol Sulfate 90 Mcg 8 Gm Inhaler) 2 puff INHALE Q4H PRN PRN Reason: shortness of breath or wheezing Apixaban (Apixaban 5 Mg Tablet) 5 mg PO BID [facility] Last Admin: 05/24/23 08:39 Dose: 5 mg Documented By: AD Clonazepam (Clonazepam 0.5 Mg Tablet) 0.5 mg PO BID [facility] Last Admin: 05/24/23 08:38 Dose: 0.5 mg Documented By: AD Duloxetine HCl (Duloxetine Hcl 60 Mg Capsule.) 60 mg PO DAILY [facility] Last Admin: 05/24/23 08:38 Dose: 60 mg Documented By: AD Escitalopram Oxalate (Escitalopram Oxalate 20 Mg Tablet) 20 mg PO Q48H [facility] Last Admin: 05/24/23 08:38 Dose: 20 mg Documented By: AD Guaifenesin (Guaifenesin 200 Mg/10 Ml 10 Ml Liquid) 10 ml PO Q6H PRN PRN Reason: Cough Last Admin: 05/24/23 02:59 Dose: 10 ml Documented By: RACHAEL Losartan Potassium (Losartan Potassium 50 Mg Tablet) 50 mg PO DAILY [facility]; Protocol Last Admin: 05/24/23 08:38 Dose: 50 mg Documented By: AD Non-Formulary Medication (Bupropion Hcl) 200 mg PO DAILY [facility] Omeprazole (Omeprazole 20 Mg Capsule.) 20 mg PO DAILY@0630 [facility] Last Admin: 05/24/23 08:39 Dose: 20 mg Documented By: AD Ondansetron HCl (Ondansetron Hcl 4 Mg/2 Ml Vial) 4 mg IVPUSH Q8H PRN PRN Reason: Nausea and Vomiting Oseltamivir Phosphate (Oseltamivir Phosphate 75 Mg Capsule) 75 mg PO Q12H [facility] Stop: 05/28/23 09:01 Last Admin: 05/24/23 08:38 Dose: 75 mg Documented By: AD Pravastatin Sodium (Pravastatin Sodium 40 Mg Tablet) 40 mg PO BEDTIME [facility] Prednisone (Prednisone 20 Mg Tablet) 40 mg PO DAILY [facility] Last Admin: 05/24/23 11:40 Dose: 40 mg Documented By: AD Senna (Sennosides 8.6 Mg Tablet) 17.2 mg PO BEDTIME PRN PRN Reason: Constipation Sodium Chloride (0.9 % Sodium Chloride Flush 3 Ml Syringe) 3 ml IVFLUSH QSHIFT [facility] Last Admin: 05/24/23 09:54 Dose: 3 ml Documented By: AD Labs 05/24/23 05:41 05/24/23 05:41 Labs: Laboratory Results - last 24 hr 05/23/23 05/23/23 05/23/23 17:31 18:29 18:47 MCV 94.7 MCH 30.9 MCHC 32.7 RDW 13.8 Plt Count 237 MPV 10.5 Immature Gran % (Auto) 2.5 H Neut % (Auto) 81.9 H Lymph % (Auto) 4.9 L Hamilton % (Auto) 10.3 Eos % (Auto) 0.2 Baso % (Auto) 0.2 Lymph # (Auto) 0.4 L Hamilton # (Auto) 0.9 Eos # (Auto) 0.0 Baso # (Auto) 0.0 Abs Immat Gran (auto) 0.21 H Absolute Neuts (auto) 6.9 Absolute Nucleated RBC 0.000 Nucleated RBC % (auto) 0.0 PT 12.8 INR 1.1 APTT 30.3 VBG pH VBG pCO2 VBG pO2 VBG HCO3 VBG O2 Saturation VBG Base Excess Anion Gap 12 Estim Creat Clear Calc 84.5 Estimated GFR > 60 Random Glucose 223 H Calcium 8.5 Magnesium 1.7 Ammonia B-Natriuretic Peptide 265 H TSH 0.92 Urine Color Urine Appearance Urine pH Ur Specific Murray Urine Protein Urine Glucose (UA) Urine Ketones Urine Blood Urine Nitrite Ur Leukocyte Esterase Urine RBC Urine WBC Ur Squamous Epith Cells Urine Bacteria Hyaline Casts Influenza Type A (PCR) POSITIVE A Influenza Type B (PCR) NEGATIVE RSV RNA Qual (PCR) NEGATIVE SARS-CoV-2 RNA (RT-PCR) NEGATIVE 05/23/23 05/23/23 05/24/23 21:35 21:44 05:41 MCV 93.4 MCH 30.6 MCHC 32.7 RDW 14.1 Plt Count 255 MPV 10.5 Immature Gran % (Auto) 1.9 H Neut % (Auto) 68.7 Lymph % (Auto) 11.4 L Hamilton % (Auto) 17.6 H Eos % (Auto) 0.1 Baso % (Auto) 0.3 Lymph # (Auto) 0.8 L Hamilton # (Auto) 1.2 Eos # (Auto) 0.0 Baso # (Auto) 0.0 Abs Immat Gran (auto) 0.13 H Absolute Neuts (auto) 4.8 Absolute Nucleated RBC 0.000 Nucleated RBC % (auto) 0.0 PT INR APTT VBG pH 7.50 H VBG pCO2 33 VBG pO2 65 VBG HCO3 26 VBG O2 Saturation 93.0 VBG Base Excess 3.8 Anion Gap 12 Estim Creat Clear Calc 92.1 Estimated GFR > 60 Random Glucose 108 Calcium 8.4 Magnesium Ammonia 26 B-Natriuretic Peptide TSH Urine Color Yellow Urine Appearance Clear Urine pH 6.5 Ur Specific Murray 1.010 Urine Protein Negative Urine Glucose (UA) Negative Urine Ketones Negative Urine Blood Negative Urine Nitrite Negative Ur Leukocyte Esterase Large (3+) H Urine RBC 0-2 Urine WBC 21-50 H Ur Squamous Epith Cells 3-5 Urine Bacteria 1+ Hyaline Casts 0-2 Influenza Type A (PCR) Influenza Type B (PCR) RSV RNA Qual (PCR) SARS-CoV-2 RNA (RT-PCR) Microbiology Microbiology Results: Microbiology 05/23/23 Unknown Urine Culture - Preliminary Urine clean catch - Urine marvin top Culture too young to evaluate. Assessment and Plan (1) Paroxysmal atrial fibrillation: Status: Acute (2) Influenza A: Status: Acute (3) Acute hypoxemic respiratory failure: Status: Acute (4) Metabolic encephalopathy: Status: Acute Plan 67-year-old female with history of AVNRT, asthma/COPD overlap, depression, [id number]-aokzakzzm type 2 diabetes, GERD, hypertension, hypercholesterolemia, history left bundle-branch block, chronic low back pain with bilateral radiculopathy, osteoporosis admitted for new onset atrial fibrillation with RVR and influenza A with acute hypoxemic respiratory failure and acute metabolic encephalopathy. # new onset atrial fibrillation with RVR- likely secondary to viral infection -rate now controlled. converted to sinus rhythm. EKG ordered to confirm conversion -has history AVNRT following with Dr. Quigley -Per EMS narrow complex tachycardia requiring 80mg adenosine and cardioversion -weaned from cardizem drip -change metoprolol to diltiazem 180 xr -echo results pending -chads 2 Vasc score 5. Continue Eliquis 5 mg b.i.d. -cardiac diet -cardiology input appreciated -monitor on telemetry # acute hypoxemic respiratory failure-resolved -likely due to influenza A/afib rvr -weaned from O2 # acute metabolic encephalopathy- improving -likely secondary hypoxia, less liekly influenza -VBG without hypercapnia or acidosis. ammonia levels normal. Head CT negative for acute intracranial abnormality. Renal function, hepatic function normal -monitor mentation # influenza a -CXR negative -Tamiflu -symptomatic management -droplet/contact precautions # elevated troponins -likely demand secondary to AFib RVR -no anginal chest pain -echo ordered, cardiology consult -monitor on telemetry # asthma/COPD overlap -mild exacerbation 2/2 influenza -prednisone 40mg added. HOld home dose methylprednisolone -continue maintenance inhalers, nebs # mood disorder -continue home medications # gxb-bgnrhvu-vwujsjjfm type 2 diabetes-without hyperglycemia -last hemoglobin A1c 6.3% -POC glucose, diabetic diet, Humalog on sliding scale # hypertension -blood pressure reasonably controlled -continue losartan. change metoprolol to diltiazem as above # hyperlipidemia -continue statin DVT prophylaxis-Eliquis Full code Patient requires ongoing inpatient stay for management of new onset atrial fibrillation with rapid ventricular rate requiring cardizem drip and transition to new PO rate control medication as well as supplemental O2 titration and expert consultation. Quality Stroke Does the patient have a stroke diagnosis?: No VTE Prior VTE?: No VTE Risk Level:: Medical - moderate - high VTE Device Contraindication: Treatment Not Indicated VTE Drug Contraindication: N/A - Med Ordered
[2023-05-24 16:47] LABS: Glucose, Whole Blood 139 mg/dL (60-115)
[2023-05-24] MEDS: Pravastatin Sodium 40 MG TABLET PO (20:06)
[2023-05-24 20:08] LABS: Glucose, Whole Blood 202 mg/dL (60-115)
[2023-05-24] MEDS: Insulin Lispro 100 UNIT/ML 3 ML VIAL SUBCUT (20:08)
[2023-05-25] VITALS (10 sets, daily range): BP systolic 104–125; BP diastolic 55–57; PULSE 55–90; RESP 16–18; TEMP 35.7–36.6; O2SAT 92–99
[2023-05-25 07:22] LABS: Glucose, Whole Blood 132 mg/dL (60-115)
[2023-05-25] MEDS: Albuterol Sulfate (0.083%) 2.5 MG/3 ML VIAL.NEB INHALE ×3 (08:09→15:06)
[2023-05-25] MEDS: clonazePAM 0.5 MG TABLET PO (08:13)
[2023-05-25] MEDS: guaiFENesin 200 MG/10 ML 10 ML LIQUID PO (08:13)
[2023-05-25] MEDS: Omeprazole 20 MG CAPSULE.DR PO (08:13)
[2023-05-25] MEDS: Apixaban 5 MG TABLET PO (08:13)
[2023-05-25 08:15] LABS: MANUAL DIFF FLAG NO
[2023-05-25] MEDS: Oseltamivir Phosphate 75 MG CAPSULE PO (08:18)
[2023-05-25] MEDS: Losartan Potassium 50 MG TABLET PO (08:18)
[2023-05-25] MEDS: predniSONE 20 MG TABLET 40 MG PO (08:18)
[2023-05-25] MEDS: 0.9 % Sodium Chloride Flush 3 ML SYRINGE IVFLUSH (08:19)
[2023-05-25] MEDS: DULoxetine HCl 60 MG CAPSULE.DR PO (08:19)
[2023-05-25] MEDS: Metoprolol Tartrate 25 MG TABLET PO (08:19)
[2023-05-25 08:20] LABS: Basophils Percent Auto 0.2 % (0-2); Hemoglobin 12.8 g/dl (12.0-16.0); Imm Gran Abs Auto 0.08 X10*3/uL (0.00-0.03); Imm Gran Pct Auto 1.7 % (0.0-0.4); Lymphocytes Absolute Auto 0.8 X10*3/uL (1.2-4.9); Lymphocytes Percent Auto 18.3 % (20-40); Mean Corpuscular HGB Conc 32.8 g/dl (31.0-35.0); Mean Corpuscular Hemoglobin 30.5 pg (27.0-33.0); Mean Corpuscular Volume 93.1 fL (80.0-98.0); Mean Platelet Volume 10.3 fL (9.4-12.3); Monocytes Absolute Auto 0.9 X10*3/uL (0.1-1.2); Monocytes Percent Auto 19.8 % (2-11); Neutrophils Absolute Auto 2.8 x10*3/uL (2.0-8.3); Platelet Count 292 X10*3/uL (160-400); Red Blood Count 4.19 X10*6/uL (4.20-5.50); Red Cell Distribution Width 13.9 % (11.0-16.0); White Blood Count 4.6 X10*3/uL (4.8-10.8)
--- NOTE | 2023-05-25 08:38 | MHC.CM.PN ---
CM attempted to meet with Patient but she was unavailable. CM spoke with Daughter/HCP/Grace @ [phone] and addressed IMM with her (original will be mailed certified letter to Grace and a copy has been placed on the chart). 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 Per Grace, STR is the goal and CM has initiated and will follow for dc planning. PCP is Dr. Daniel Landa.Grace asks to be included in all steps of dc planning.
[2023-05-25 08:41] LABS: Anion Gap 15 (12-20); Blood Urea Nitrogen 12 mg/dL (9-16); Calcium 8.7 mg/dL (8.4-10.2); Carbon Dioxide 28 mmol/L (22-29); Chloride 103 mmol/L (96-108); Creatinine Clr Calc Pharmacy 71.6; Estimated Glomerular Filt Rate > 60; Glucose Random 125 mg/dL (60-115); Potassium 3.9 mmol/L (3.3-5.1); Sodium 142 mmol/L (135-145)
--- NOTE | 2023-05-25 10:45 | PM.PNCARD ---
Subjective Subjective Date of Service: 05/25/23 Principal diagnosis: Paroxysmal atrial fibrillation, cardiomyopathy. Interval history: Patient is still somewhat confused. Heart rate is stable and remains in sinus rhythm. Blood pressure is stable. Review of Systems Constitutional: Reports weakness Eyes: Reports no additional eye complaints Cardiovascular: Reports no additional cardiovascular complaints Reports system reviewed and no additional complaints, except as documented, Reports confusion and Reports weakness Psychiatric: Reports confusion Endocrine: Reports no additional endocrine complaints Physical Exam Vital Signs: Last Vital Signs Temp 97.9 F 05/25/23 07:28 Pulse 70 05/25/23 08:15 Resp 16 05/25/23 08:15 BP 125/55 L 05/25/23 07:28 Pulse Ox 96 05/25/23 08:15 O2 Del Method Room Air 05/25/23 08:15 O2 Flow Rate 2 05/25/23 04:00 BMI result Body Mass Index 30.8 Const General: cooperative, comfortable, alert, awake, in distress mild and respiratory and confusion Nutritional Appearance: overweight Orientation/consciousness: confusion HEENT Head: Yes normocephalic and Yes atraumatic Neck Neck: Yes trachea midline, Yes supple and Yes no JVD Resp Effort & Inspection: normal respiratory effort Auscultation: wheezes scattered wheezes and diminished lung sounds Cardio Jugular venous distension: no JVD Rhythm: abnormal rhythm with ectopic beats Heart sounds: S1 normal heart sound present, S2 normal heart sound present, no click, no gallops, no murmurs and no rubs GI Auscultation: normal bowel sounds Skin General skin exam: no rashes or lesions noted Neuro General: no focal motor deficits and confusion Extrem General: Yes no clubbing, cyanosis or edema Objective Labs and Meds 05/25/23 07:42 05/25/23 07:42 Lab results: Laboratory Results - last 24 hr 05/24/23 05/24/23 05/25/23 16:43 19:56 07:08 WBC RBC Hgb Hct MCV MCH MCHC RDW Plt Count MPV Immature Gran % (Auto) Neut % (Auto) Lymph % (Auto) Wilcox % (Auto) Eos % (Auto) Baso % (Auto) Lymph # (Auto) Wilcox # (Auto) Eos # (Auto) Baso # (Auto) Abs Immat Gran (auto) Absolute Neuts (auto) Absolute Nucleated RBC Nucleated RBC % (auto) Sodium Potassium Chloride Carbon Dioxide Anion Gap BUN Creatinine Estim Creat Clear Calc Estimated GFR POC Glucose 139 H 202 H 132 H Random Glucose Calcium 05/25/23 07:42 WBC 4.6 L RBC 4.19 L Hgb 12.8 Hct 39.0 MCV 93.1 MCH 30.5 MCHC 32.8 RDW 13.9 Plt Count 292 MPV 10.3 Immature Gran % (Auto) 1.7 H Neut % (Auto) 60.0 Lymph % (Auto) 18.3 L Wilcox % (Auto) 19.8 H Eos % (Auto) 0.0 Baso % (Auto) 0.2 Lymph # (Auto) 0.8 L Wilcox # (Auto) 0.9 Eos # (Auto) 0.0 Baso # (Auto) 0.0 Abs Immat Gran (auto) 0.08 H Absolute Neuts (auto) 2.8 Absolute Nucleated RBC 0.000 Nucleated RBC % (auto) 0.0 Sodium 142 Potassium 3.9 D Chloride 103 Carbon Dioxide 28 Anion Gap 15 BUN 12 Creatinine 0.72 Estim Creat Clear Calc 71.6 Estimated GFR > 60 POC Glucose Random Glucose 125 H Calcium 8.7 Progress Note: A&P Assessment and plan (1) Paroxysmal atrial fibrillation: Status: Acute Assessment and Plan: Paroxysmal atrial fibrillation most likely triggered by her acute illness and hypoxemia. Clinically no recurrence at this point time. Continue metoprolol therapy. Agree with Eliquis. Avoidance of stimulants was discussed. Switch to pulmonary specific bronchodilators such as Xopenex. Continue treat her underlying pulmonary situation aggressively. (2) Cardiomyopathy: Status: Acute Assessment and Plan: Cardiomyopathy, nonischemic. Hgnr-ya-[id number] LV systolic dysfunction. No signs or symptoms of heart failure. Continue neurohormonal modulation with losartan and metoprolol. Will sign of the case. Patient can follow up with her own veterinary manager as outpatient. Time Spent With Patient Time: Total time managing care of this patient today ____ minutes. Progress Note: Quality Stroke Does the patient have a stroke diagnosis?: No Procedures Date of Service Date of Service: 05/25/23
[2023-05-25 11:10] LABS: Glucose, Whole Blood 190 mg/dL (60-115)
[2023-05-25] MEDS: Insulin Lispro 100 UNIT/ML 3 ML VIAL SUBCUT ×2 (12:12→16:41)
--- NOTE | 2023-05-25 13:02 | PM.DS ---
DS: Providers Provider Date of Service: 05/25/23 Date of admission: 05/23/23 20:36 Date of discharge: 05/25/23 Primary care physician: Daniel Landa MD Admitting clinician: Sruthi Cervantes Attending physician on admission: Dulce Mullins Consults: 05/23/23 21:00 Consult to Cardiology Routine Consulting Provider: [facility] Reason for consultation: new onset afib rvr, narrow complex tach s/p adenosine and cardioversion ems Has provider been notified: Yes Attending physician on discharge: Denis Renteria Discharging clinician: Sruthi Cervantes DS: Diagnosis Discharge Diagnosis (1) Paroxysmal atrial fibrillation: Status: Acute (2) Cardiomyopathy: Status: Acute DS: Summary Hospital Course Hospital Course: HPI on admission by this provider 05/23: 67-year-old female with history of AVNRT, asthma/COPD overlap, depression, [id number]-bdgxfgwtk type 2 diabetes, GERD, hypertension, hypercholesterolemia, history left bundle-branch block, chronic low back pain with bilateral radiculopathy, osteoporosis presents to the office today accompanied by for evaluation of general weakness, lightheadedness ongoing for several weeks. The patient appears confused, slow to respond to commands, history obtained primarily from . Over the last few days, she has also developed productive cough, sore throat, and shortness of breath. 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 Quigley who ordered holter montitor x1 week which was applied on monday. Her also reports that she has seemed confused since this morning and slow to respond. He reports that she has not been out of bed much due to her the generalized weakness. Denies any fevers, chills, abdominal pain, nausea, vomiting, diarrhea, urinary symptoms, syncope, palpitations, chest pain. Per EMS, on arrival, patient was found be in narrow complex tachycardia with heart rate in the 220s. She was given 80 mg adenosine without effect. She was then cardioverted with 50 joules. EKG on arrival showed SVT with PVCs, rate [address] elevations. Repeat EKG showed atrial fibrillation with RVR, rate 156, no paula. On arrival, heart rate 193, no hypotension. Slightly elevated temperature of 100.2 degrees. She was hypoxic to 88% on room air placed on 2 L supplemental O2 maintaining oximetry 92-95%. Hematology studies unremarkable. Renal function baseline, electrolyte levels normal except for mild hypokalemia of 3.2. Initial troponin 37.2, repeat pending. BNP 265. She is negative for COVID-19 and RSV was positive for influenza A. In the ED, given 5 mg IV Lopressor, 10 mg IV diltiazem x2 and started on Cardizem drip per protocol. She was also given 1st dose of Eliquis. Hospital course: Pt admitted to med/tele for further management of new onset atrial fibrillation with rapid ventricular rate. She also tested positive for influenza which likely triggered her conversion into arrhythmia. On admission, patient continued on Cardizem drip and was restarted on metoprolol at 25 mg twice daily. She was successfully weaned from Cardizem drip with heart rates maintaining between 70-90 and she was converted back to normal sinus rhythm with a previously seen left bundle branch block noted on EKG. She was started on Tamiflu for influenza and was also started on oral prednisone for COPD exacerbation and again likely secondary to influenza. Cardiology was consulted and echocardiogram was updated showing mild to moderate LV systolic dysfunction with EF 40-45% with grade 2 diastolic dysfunction. She was successfully weaned from supplemental O2 with improvement in mentation as well. She should follow up with Dr. Quigley as scheduled next monday and pcp soon. She should continue eliquis 5mg BID and metoprolol 25mg bid. She should also continue tamiflu. Continue all other home medications. She was also seen by physical therapy recommending home PT and will be ordered for this. # new onset atrial fibrillation with RVR- likely secondary to viral infection -has history AVNRT following with Dr. Quigley -Per EMS initially narrow complex tachycardia requiring 80mg adenosine and cardioversion. On admission, afib with rvr -weaned from cardizem drip. EKG confirmed converstion to NSR -echo showed mild-moderate LV systolic dysfunction EF 40-45% -chads 2 Vasc score 5. Continue Eliquis 5 mg b.i.d. -continue metoprolol 25mg BID -cardiology input appreciated. Follow up with Dr. Quigley as schedule -avoid stimulants, change to pulmonary specific bronchodilator like xopenex # acute hypoxemic respiratory failure-resolved -likely due to influenza A/afib rvr -weaned from O2 # acute metabolic encephalopathy-resolved -likely secondary hypoxia, less likely influenza -VBG without hypercapnia or acidosis. ammonia levels normal. Head CT negative for acute intracranial abnormality. Renal function, hepatic function normal # influenza a -CXR negative -Continue tamiflu -symptomatic management # elevated troponins -likely demand secondary to AFib RVR -no anginal chest pain -nor egional wall motion abnormality on echo # asthma/COPD overlap -mild exacerbation 2/2 influenza -treated wtih 40mg prednisone. Continue prednisone 40mg x3 days -continue maintenance inhalers. Change albuterol to xopenex # mood disorder -continue home medications # aua-celoevm-ssfvtrdvp type 2 diabetes-without hyperglycemia -last hemoglobin A1c 6.3% -glucose levels well controlled during admission, managed with ssi -resume home meds, diabetic diet # hypertension -blood pressure reasonably controlled -continue losartan. Increase metoprolol to 25mg bid # hyperlipidemia -continue statin Time Attestation Discharge coordination time: Greater than 30 minutes Quality: Safe Use of Opioids Does Pt have an Active Cancer Diagnosis on the Problem List?: No Quality: Stroke Does the patient have a stroke diagnosis?: No Physical Exam Vital Signs: Vital Signs: Last Vital Signs Temp 97.9 F 05/25/23 11:15 Pulse 90 05/25/23 11:15 Resp 18 05/25/23 11:15 BP 109/56 L 05/25/23 11:15 Pulse Ox 92 05/25/23 11:15 O2 Del Method Room Air 05/25/23 11:15 O2 Flow Rate 2 05/25/23 04:00 BMI result Body Mass Index 30.8 DS: Data Data Completed and Pending Labs on day of discharge: Laboratory Results - last 24 hr 05/24/23 05/24/23 05/25/23 16:43 19:56 07:08 WBC RBC Hgb Hct MCV MCH MCHC RDW Plt Count MPV Immature Gran % (Auto) Neut % (Auto) Lymph % (Auto) Porter % (Auto) Eos % (Auto) Baso % (Auto) Lymph # (Auto) Porter # (Auto) Eos # (Auto) Baso # (Auto) Abs Immat Gran (auto) Absolute Neuts (auto) Absolute Nucleated RBC Nucleated RBC % (auto) Sodium Potassium Chloride Carbon Dioxide Anion Gap BUN Creatinine Estim Creat Clear Calc Estimated GFR POC Glucose 139 H 202 H 132 H Random Glucose Calcium 05/25/23 05/25/23 07:42 10:58 WBC 4.6 L RBC 4.19 L Hgb 12.8 Hct 39.0 MCV 93.1 MCH 30.5 MCHC 32.8 RDW 13.9 Plt Count 292 MPV 10.3 Immature Gran % (Auto) 1.7 H Neut % (Auto) 60.0 Lymph % (Auto) 18.3 L Porter % (Auto) 19.8 H Eos % (Auto) 0.0 Baso % (Auto) 0.2 Lymph # (Auto) 0.8 L Porter # (Auto) 0.9 Eos # (Auto) 0.0 Baso # (Auto) 0.0 Abs Immat Gran (auto) 0.08 H Absolute Neuts (auto) 2.8 Absolute Nucleated RBC 0.000 Nucleated RBC % (auto) 0.0 Sodium 142 Potassium 3.9 D Chloride 103 Carbon Dioxide 28 Anion Gap 15 BUN 12 Creatinine 0.72 Estim Creat Clear Calc 71.6 Estimated GFR > 60 POC Glucose 190 H Random Glucose 125 H Calcium 8.7 Discharge Plan Discharge Anticipated Discharge Date/Time: 05/25/23 13:29 Patient Disposition: Home Health Service Discharge Diagnosis: afib rvr, influenza, metabolic encephalopathy, acute hypoxemic respiratory failure Referrals: Daniel Landa MD [Primary Care Provider] - 1 Week Discharge Medications: New prednisone 20 mg Tablet 40 mg PO DAILY Qty: 6 0RF oseltamivir [Tamiflu] 75 mg Capsule 75 mg PO Q12H Qty: 6 0RF levalbuterol tartrate [Xopenex HFA] 45 mcg/actuation HFA aerosol inhaler 2 inh inhalation Q6H Qty: 15 1RF Eliquis 5 mg Tablet 5 mg PO BID Qty: 60 1RF Continued pantoprazole 40 mg Tablet,Delayed Release (Dr/Ec) 40 mg PO DAILY metoprolol tartrate 25 mg tablet 12.5 mg PO BID escitalopram oxalate 20 mg tablet 20 mg PO Q48H losartan 50 mg tablet 50 mg PO DAILY duloxetine 60 mg capsule,delayed release(DR/EC) 60 mg PO DAILY pravastatin 40 mg tablet 40 mg PO QPM bupropion HCl 200 mg tablet sustained-release 12 hr 200 mg PO DAILY clonazepam 0.5 mg tablet 0.5 mg PO BID Held methylprednisolone 4 mg tablet 4 mg PO Q48H Hold Instructions: Resume on 05/29/23. Discontinued albuterol sulfate 2.5 mg /3 mL (0.083 %) solution for nebulization 2.5 mg inhalation Q4H Qty: 150 3RF albuterol sulfate 90 mcg/actuation HFA aerosol inhaler 2 puff inhalation Q4-6H PRN (Reason: shortness of breath or wheezing) 30 Days Qty: 8.5 5RF Discharge Orders: Discharge Order (Routine); Ordered 05/25/23 Ordered By: Sruthi Cervantes Diet: Advance to usual diet Activity on Discharge: As tolerated Stand Alone Forms: Patient Portal Discharge page Care Plan Goals: Manage heart rate continue anticoagulation to prevent stroke Treat influenza Health Concerns: Atrial fibrillation with rapid ventricular rate Metabolic encephalopathy Acute hypoxemic respiratory failure Influenza a Plan of Treatment: Atrial fibrillation with rapid ventricular rate -weaned from IV rate controlling medications. Returned to normal sinus rhythm -continue metoprolol 25 mg twice daily -continue Eliquis 5 mg twice daily to prevent stroke -follow-up with Dr. Quigley soon -avoid stimulants Hypoxia -likely secondary to uncontrolled tachycardia, influenza Confusion/encephalopathy -likely secondary to hypoxia Influena -continue tamiflu Asthma/copd exacerbation -continue prednisone 40mg x3 more days. Resume methylprednisolone once prednisone completed -Use xopenex inhaler instead of albuterol as needed for shortness of breath/wheezing. Albuterol can elevate heart rate Assessment: See above. See discharge summary Patient Instructions: A-fib (Atrial Fibrillation) (DC)
--- NOTE | 2023-05-25 13:40 | MHC.CM.PN ---
PT is recommending home with services;CM will follow.
--- NOTE | 2023-05-25 13:45 | MHC.CM.PN ---
Patient has been medically cleared for dc to home today with services. A referral has been made to [facility], who has been made aware of today's dc.
--- NOTE | 2023-05-25 14:11 | W.MHC.F2F ---
Service Date Service Date: 05/25/23 Encounter Date of encounter: 05/25/23 Reasons for Services Signs and symptoms assessed: afib with rvr, hypoxia, influenza, Reason for physical therapy: therapeutic exercises, gait/transfer training and energy conservation Homebound: Leaving the home is medically contraindicated at this time without the asist of a device and/or another person due th the listed conditions above and below. Reason homebound: leg weakness, poor balance / fall risk and weakness related to hospital stay Certification: Based on the above findings, I certify that this patient is confined to the home and needs intermittent fci care, physical therapy and/or speech therapy, or continues to need occupational therapy. The patient is under my care, and I have initiated the establishment of the plan of care. The patient will be followed by a physician who will periodically review the plan of care. Time Spent With Patient Time: Total time managing care of this patient today ____ minutes.
[2023-05-25 16:13] LABS: Glucose, Whole Blood 223 mg/dL (60-115)
== END 2023-05-25 17:50 | disposition home health service (06) | DRG 308 ==
LOC: HO.ED 18:54 → HO.EDOVER 21:07 → HO.IMC 05-24 14:53
PROVIDERS: Admitting Provider Physician Assistant; Emergency Provider Internal Medicine; PCP Internal Medicine; Visit Provider Physician Assistant
DX: I48.0 Paroxysmal atrial fibrillation (principal); G93.41 Metabolic encephalopathy; J96.01 Acute respiratory failure with hypoxia; J44.1 Chronic obstructive pulmonary disease with (acute) exacerbation; J45.901 Unspecified asthma with (acute) exacerbation; I42.8 Other cardiomyopathies; E11.9 Type 2 diabetes mellitus without complications; I47.10 Supraventricular tachycardia, unspecified; E78.5 Hyperlipidemia, unspecified; I25.10 Atherosclerotic heart disease of native coronary artery without angina pectoris; J10.1 Influenza due to other identified influenza virus with other respiratory manifestations; F39 Unspecified mood [affective] disorder; I10 Essential (primary) hypertension; Z79.899 Other long term (current) drug therapy
CPT/HCPCS: 0241U; 36415; 70450; 71045; 80048; 81001; 82140; 82803; 82947; 83735; 83880; 84443; 84484; 85025; 85610; 85730; 87086; 93005; 93306; 94640; 97161; 99285; Q9957

== ENCOUNTER → 2023-05-23 17:05 | Outpatient (BNV) | payer MEDICARE, OTHER, SELFPAY | PROVIDERS: Admitting Provider Physician Assistant; Emergency Provider Internal Medicine; PCP Internal Medicine; Visit Provider Internal Medicine Cardiovascular Disease | DX: I47.10 Supraventricular tachycardia, unspecified (principal); I49.3 Ventricular premature depolarization; R94.31 Abnormal electrocardiogram [ECG] [EKG]; I48.91 Unspecified atrial fibrillation; R00.0 Tachycardia, unspecified | CPT/HCPCS: 93010 ==

== ENCOUNTER 2023-05-23 20:36 | Outpatient (BNV) | payer MEDICARE, OTHER, SELFPAY | END 2023-05-24 07:00 | PROVIDERS: Admitting Provider Physician Assistant; Emergency Provider Internal Medicine; PCP Internal Medicine; Visit Provider Internal Medicine Cardiovascular Disease | DX: I48.91 Unspecified atrial fibrillation (principal) | CPT/HCPCS: 93306 ==

== ENCOUNTER → 2023-05-23 20:36 | Outpatient (BNV) | payer MEDICARE, OTHER, SELFPAY | PROVIDERS: Admitting Provider Physician Assistant; Emergency Provider Internal Medicine; PCP Internal Medicine; Visit Provider Internal Medicine Cardiovascular Disease | DX: I48.0 Paroxysmal atrial fibrillation (principal) | CPT/HCPCS: 99222; 99233 ==

== ENCOUNTER → 2023-05-23 20:36 | Outpatient (BNV) | payer MEDICARE, OTHER, SELFPAY | PROVIDERS: Admitting Provider Physician Assistant; Emergency Provider Internal Medicine; PCP Internal Medicine; Visit Provider Physician Assistant | DX: I48.0 Paroxysmal atrial fibrillation (principal); I42.9 Cardiomyopathy, unspecified | CPT/HCPCS: 99223; 99233; 99239; G0180 ==

== ENCOUNTER 2023-06-19 16:55 | Emergency (ER) | payer MEDICARE, OTHER, SELFPAY ==
--- NOTE | ~2023-06-19 | XR_ITS ---
EXAMINATION: XR WRIST, LEFT XR HAND, LEFT CLINICAL INFORMATION: Redness/swelling to left hand COMPARISON: None available. TECHNIQUE: PA, lateral, and oblique views of the left wrist and PA, lateral, and oblique views of the left hand FINDINGS: LEFT WRIST: The bones and soft tissues are normal. No fracture. Alignment is anatomic. Joint spaces are maintained. There is diffuse osteopenia. No erosions or soft tissue calcifications. LEFT HAND: There is loss of PIP and DIP joint spaces with mild periarticular spurring DIP joint third and fifth digit.. Alignment is anatomic. There is diffuse osteopenia. Joint spaces are maintained. No erosions or soft tissue calcifications. XR/XR hand wrist LT IMPRESSION: Diffuse osteopenia. Osteoarthritic changes left hand. No visible acute fracture, dislocation or subluxation.
--- NOTE | 2023-06-19 17:53 | ED_ITS ---
HPI - General Adult General Chief complaint: Extremity Injury, Upper Stated complaint: Left arm swelling redness Time Seen by Provider: 06/20/23 01:03 Source: patient, family, RN notes reviewed and old records reviewed Mode of arrival: ambulatory Limitations: no limitations History of Present Illness HPI narrative: 59-year-old female presents for evaluation of left hand and wrist pain and swelling She was admitted a few weeks ago for new onset atrial fibrillation and influenza. She was started on Eliquis She reports that she 1st noticed the redness, pain, swelling yesterday morning Her pain is sharp, 8/10 and worse with movement She notes that she has full range of motion of the left hand and wrist Denies any fevers or chills. She denies any trauma to the area Denies any history of gout Related Data Home Medications Medication Instructions Recorded Confirmed bupropion HCl 200 mg tablet,12 hr 200 mg PO DAILY 06/25/20 05/23/23 sustained-release duloxetine 60 mg capsule,delayed 60 mg PO DAILY 06/25/20 05/23/23 release pravastatin 40 mg tablet 40 mg PO QPM 06/25/20 05/23/23 clonazepam 0.5 mg tablet 0.5 mg PO BID 02/23/21 05/23/23 escitalopram oxalate 20 mg tablet 20 mg PO Q48H 04/01/22 05/23/23 losartan 50 mg tablet 50 mg PO DAILY 04/01/22 05/23/23 methylprednisolone 4 mg tablet 4 mg PO Q48H ASTHMA 05/23/23 05/23/23 metoprolol tartrate 25 mg tablet 12.5 mg PO BID 05/23/23 05/23/23 pantoprazole 40 mg tablet,delayed 40 mg PO DAILY 05/23/23 05/23/23 release Previous Rx's Medication Instructions Recorded apixaban 5 mg tablet (Eliquis) 5 mg PO BID #60 tabs 05/25/23 levalbuterol tartrate 45 2 inh inhalation Q6H #15 grams 05/25/23 mcg/actuation aerosol inhaler (Xopenex HFA) oseltamivir 75 mg capsule (Tamiflu) 75 mg PO Q12H #6 caps 05/25/23 prednisone 20 mg tablet 40 mg (2 x 20 mg) PO DAILY #6 tabs 05/25/23 cephalexin 500 mg capsule 500 mg PO QID #28 caps 06/20/23 Allergies Allergy/AdvReac Type Severity Reaction Status Date / Time latex Allergy Unknown HIVES Verified 06/19/23 17:53 doxycycline AdvReac Irritable Verified 06/19/23 17:53 Review of Systems 2 Constitutional: Constitutional: Denies chills and Denies fever(s) Cardiovascular: Cardiovascular: Denies chest pain and Denies dyspnea Respiratory: Respiratory: Denies cough and Denies dyspnea Gastrointestinal: Gastrointestinal: Denies abdominal pain Musculoskeletal: Musculoskeletal: Reports arthralgias, Reports joint swelling and Denies limited range of motion Integumentary/Breasts: Skin/Breast: Reports erythema, Reports skin pain and Reports skin swelling Neurologic: Denies convulsions Psychiatric: Psychiatric: Denies panic attacks PMFSH Past Medical History Onset Date is defined in the Problem List Problems that require an onset date and time if occurred within 24 hrs of arrival to the ED Aortic Dissection and Rupture; Neurologic impairment; Cardiopulmonary Arrest; Endotracheal Intubation; Insertion or Replacement of Mechanical Circulatory Assist Device Medical History Depression GERD (gastroesophageal reflux disease) Type 2 diabetes mellitus HLD (hyperlipidemia) AVNRT (AV janice re-entry tachycardia) Pneumonia Hypertension Hiatal hernia COPD (chronic obstructive pulmonary disease) Asthma Allergic rhinitis Social History Social History Household Members: Significant Other and Family Housing: House Unable to assess alcohol history related to: Unknown Alcohol intake: never Patient Tobacco Use Status: Never used Tobacco Smoked in Last 30 Days: No Second Hand Smoke Exposure: No Use of substances other than those prescribed or required for medical reasons: No Substance Use Type: Marijuana Advance Directives: Yes Advance Directives on File: Yes Advance Directives Date on File: 05/24/23 service: No Physical Exam ED Vital Signs: Vital Signs - 24 hr 06/19/23 17:54 06/19/23 23:27 06/20/23 01:12 Temperature 96.8 F 97.7 F Pulse Rate 95 107 H 91 Respiratory Rate 18 16 18 Blood Pressure 144/80 H 162/95 H 142/65 H Pulse Oximetry 97 96 99 Oxygen Delivery Method Room Air Room Air Room Air BMI result Body Mass Index 28.0 Const General: healthy appearing, comfortable, no acute distress, alert and awake Nutritional Appearance: well nourished Orientation/consciousness: patient oriented x3 HENMT Head: Yes normocephalic and Yes atraumatic Eyes Eyelids: Yes eyelids normal Conjunctivae: conjunctivae normal Sclerae: sclerae normal Corneas: corneas normal Pupils: Equal, round and reactive pupils present EOM: EOMs intact bilaterally Neck Neck: Yes full ROM Resp Effort & Inspection: normal respiratory effort, able to speak in complete sentences and not labored GI Inspection: No distended Palpation (GI): Soft to palpation, not firm, nontender, no guarding and not rigid Skin Other: Faint erythema to the dorsal surface of left hand with edema. This extends to the proximal forearm. General skin exam: elasticity normal Neuro General: patient oriented x3 Cranial nerves: Yes Equal, round and reactive pupils present and Yes Bilaterally intact EOM present Cognition (Neuro): normal cognition Extrem Other: Patient has full range of motion of all fingers of left hand can make a fist and open all fingers. She is full range motion left wrist and elbow. Course Course Course Narrative: RME:?67 yo female hx of COPD, asthma, afib, with left hand/wrist pain/warmth/redness upon waking yesterday morning. has tried icing it at home w/o relief. no injury/ trauma. admitted here 2 wks ago for afib requiring IVs in that arm. On eliquis. no numbness/tingling/weakness of LUE. +erythema to dorsal left hand extending to wrist and dorsal forearm. warm. no edema. 2+radial and ulnar pulses. negative phalen, tinel. plan for labs, xr, US Full HPI, ROS and PE to be performed by the primary ED provider. Medications Administered Discontinued Medications Generic Name Dose Route Start Last Admin Trade Name Freq PRN Reason Stop Dose Admin Cephalexin HCl 500 mg 06/20/23 01:22 06/20/23 01:38 Cephalexin 500 Mg Capsule PO 06/20/23 01:23 500 mg ONCE ONE Administration Ibuprofen 600 mg 06/19/23 23:29 06/19/23 23:31 Ibuprofen 600 Mg Tablet PO 06/19/23 23:30 600 mg ONCE ONE Administration Medical Decision Making Medical Decision Making MDM Narrative: Patient has a 1 day history of pain, swelling and redness to the dorsal surface of left wrist. Denies any trauma, x-ray shows osteopenia without fracture. Most likely diagnosis at this time is cellulitis. Can not completely rule out gout all she has no history of this. The area is warm to the touch and she has a slight leukocytosis. DVTs her to be less likely the patient has been taking Eliquis. Will treat with cephalexin Differential Diagnosis Differential Diagnoses: The differential diagnosis associated with the presentation includes Cellulitis Gout DVT Contusion Wrist sprain Lab Data MDM Lab Attestation statement: I reviewed the patient's lab results. (Mild leukocytosis, no significant anemia or electrolyte abnormality.) 06/19/23 20:14 06/19/23 20:14 Labs: Lab Results 06/19/23 Range/Units 20:14 WBC 11.0 H (4.8-10.8) X10*3/uL RBC 4.50 (4.20-5.50) X10*6/uL Hgb 13.8 (12.0-16.0) g/dl Hct 42.1 (37.0-47.0) % MCV 93.6 (80.0-98.0) fL MCH 30.7 (27.0-33.0) pg MCHC 32.8 (31.0-35.0) g/dl RDW 13.5 (11.0-16.0) % Plt Count 300 (160-400) X10*3/uL MPV 10.5 (9.4-12.3) fL Immature Gran % (Auto) 1.4 H (0.0-0.4) % Neut % (Auto) 69.1 (45-73) % Lymph % (Auto) 15.9 L (20-40) % [place] % (Auto) 11.0 (2-11) % Eos % (Auto) 2.2 (0-4) % Baso % (Auto) 0.4 (0-2) % Lymph # (Auto) 1.7 (1.2-4.9) X10*3/uL [place] # (Auto) 1.2 (0.1-1.2) X10*3/uL Eos # (Auto) 0.2 (0.0-0.4) X10*3/uL Baso # (Auto) 0.0 (0.0-0.2) X10*3/uL Abs Immat Gran (auto) 0.15 H (0.00-0.03) X10*3/uL Absolute Neuts (auto) 7.6 (2.0-8.3) x10*3/uL Absolute Nucleated RBC 0.000 (0.0-0.012) X10*3/uL Nucleated RBC % (auto) 0.0 (0.0-0.2) /100WBC PT 15.4 H D (11.1-13.3) SEC INR 1.3 H (0.9-1.1) Sodium 141 (135-145) mmol/L Potassium 3.6 (3.3-5.1) mmol/L Chloride 103 (96-108) mmol/L Carbon Dioxide 27 (22-29) mmol/L Anion Gap 15 (12-20) BUN 10 (9-16) mg/dL Creatinine 0.78 (0.5-1.4) mg/dL Estim Creat Clear Calc 63.0 Estimated GFR > 60 Random Glucose 114 (60-115) mg/dL Calcium 10.0 D (8.4-10.2) mg/dL Magnesium 1.9 (1.6-2.6) mg/dL Lipase 15 (8-78) U/L Independent Interpretation I performed an independent interpretation of an: Plain X-Ray (Agree with Radiology interpretation) Radiology Impression Discussion of test interpretation with radiology: I have reviewed the radiologist's reading. (Osteopenia without definitive fracture) Discharge Plan Discharge Clinical Impression: Cellulitis of hand, left Patient Disposition: Home, Self-Care Instructions: Cellulitis (ED) Additional Instructions: Take cephalexin 4 times daily for the next 7 days I recommend starting with warm compresses to see if that helps his symptoms Follow-up with your primary doctor Return for new or worsening symptoms Prescriptions: New cephalexin 500 mg capsule 500 mg PO QID Qty: 28 0RF No Action methylprednisolone 4 mg tablet 4 mg PO Q48H Hold Instructions: Resume on 05/29/23. pantoprazole 40 mg Tablet,Delayed Release (Dr/Ec) 40 mg PO DAILY metoprolol tartrate 25 mg tablet 12.5 mg PO BID prednisone 20 mg Tablet 40 mg PO DAILY Qty: 6 0RF oseltamivir [Tamiflu] 75 mg Capsule 75 mg PO Q12H Qty: 6 0RF levalbuterol tartrate [Xopenex HFA] 45 mcg/actuation HFA aerosol inhaler 2 inh inhalation Q6H Qty: 15 1RF Eliquis 5 mg Tablet 5 mg PO BID Qty: 60 1RF escitalopram oxalate 20 mg tablet 20 mg PO Q48H losartan 50 mg tablet 50 mg PO DAILY duloxetine 60 mg capsule,delayed release(DR/EC) 60 mg PO DAILY pravastatin 40 mg tablet 40 mg PO QPM bupropion HCl 200 mg tablet sustained-release 12 hr 200 mg PO DAILY clonazepam 0.5 mg tablet 0.5 mg PO BID Interventions: ED Discharge Assessment Last Done: 06/20/23 01:39 Discharge Date/Time: 06/20/23 01:41
[2023-06-19 17:54] VITALS: BP 144/80; PULSE 95; RESP 18; TEMP 36; O2SAT 97; BMI 28.0
[2023-06-19 20:20] LABS: MANUAL DIFF FLAG NO
[2023-06-19 20:22] LABS: Basophils Percent Auto 0.4 % (0-2); Eosinophils Absolute Auto 0.2 X10*3/uL (0.0-0.4); Eosinophils Percent Auto 2.2 % (0-4); Hematocrit 42.1 % (37.0-47.0); Hemoglobin 13.8 g/dl (12.0-16.0); Imm Gran Abs Auto 0.15 X10*3/uL (0.00-0.03); Imm Gran Pct Auto 1.4 % (0.0-0.4); Lymphocytes Absolute Auto 1.7 X10*3/uL (1.2-4.9); Lymphocytes Percent Auto 15.9 % (20-40); Mean Corpuscular HGB Conc 32.8 g/dl (31.0-35.0); Mean Corpuscular Hemoglobin 30.7 pg (27.0-33.0); Mean Corpuscular Volume 93.6 fL (80.0-98.0); Mean Platelet Volume 10.5 fL (9.4-12.3); Monocytes Absolute Auto 1.2 X10*3/uL (0.1-1.2); Neutrophils Absolute Auto 7.6 x10*3/uL (2.0-8.3); Neutrophils Percent Auto 69.1 % (45-73); Platelet Count 300 X10*3/uL (160-400); Red Cell Distribution Width 13.5 % (11.0-16.0)
[2023-06-19 20:31] LABS: INTERNATIONAL NORM RATIO 1.3 (0.9-1.1); Prothrombin Time 15.4 SEC (11.1-13.3)
[2023-06-19 20:34] LABS: Anion Gap 15 (12-20); Blood Urea Nitrogen 10 mg/dL (9-16); Carbon Dioxide 27 mmol/L (22-29); Chloride 103 mmol/L (96-108); Estimated Glomerular Filt Rate > 60; Glucose Random 114 mg/dL (60-115); Lipase 15 U/L (8-78); Magnesium 1.9 mg/dL (1.6-2.6); Potassium 3.6 mmol/L (3.3-5.1); Sodium 141 mmol/L (135-145)
[2023-06-19 23:27] VITALS: BP 162/95; PULSE 107; RESP 16; O2SAT 96
[2023-06-19] MEDS: Ibuprofen 600 MG TABLET PO (23:31)
[2023-06-20 01:12] VITALS: BP 142/65; PULSE 91; RESP 18; TEMP 36.5; O2SAT 99
[2023-06-20] MEDS: cephALEXin 500 MG CAPSULE PO (01:38)
== END 2023-06-20 01:41 | disposition home or self-care (01) ==
PROVIDERS: Physician Assistant Medical; Emergency Provider Emergency Medicine; PCP Internal Medicine
DX: L03.114 Cellulitis of left upper limb (principal); M79.642 Pain in left hand
CPT/HCPCS: 36415; 73110; 73130; 80048; 83690; 83735; 85025; 85610; 99283; 99284

== ENCOUNTER 2023-06-30 10:23 | Outpatient (AMB) | payer MEDICARE, OTHER, SELFPAY ==
[2023-06-30 10:27] VITALS: BP 140/70; PULSE 98; BMI 28.3
--- NOTE | 2023-06-30 10:27 | A.OFFVIS_ITS ---
Intake Vital Signs 06/30/23 10:27 Height 5 ft 2 in Weight 154 lb 12.232 oz BMI 28.3 BP 140/70 H Blood Pressure Location Lt brachial Position Sitting Pulse 98 Pulse Source Pulse Oximeter Intake Visit Reasons: 4 wk f/up Intake Note: pt its her for a 4 week f/up pt its feeling fine but sometimes she feels some dizziness. Guest Services Associate Required: No Accompanied by: Significant Other Allergies latex Allergy (Unknown, Verified 06/19/23 17:53) HIVES doxycycline Adverse Reaction (Verified 06/19/23 17:53) Irritable Medication List - Last Reconciled 06/30/23 by Kierra Dumont, [employer]CH[employer]IC HELPER-C apixaban (Eliquis) 5 mg PO BID cephalexin 500 mg PO QID clonazepam 0.5 mg PO BID duloxetine 60 mg PO DAILY escitalopram oxalate 20 mg PO Q48H losartan 50 mg PO DAILY methylprednisolone 4 mg PO Q48H pantoprazole 40 mg PO DAILY pravastatin 40 mg PO QPM prednisone 40 mg (2 x 20 mg) PO DAILY HPI 4 wk f/up HPI Details Mikki is a 67-year-old female past medical history of hypertension, left bundle branch block, SVT status post ablation approximately 20 years ago, nonobstructive CAD seen on cardiac catheterization 2019 who was recently admitted to [facility] with narrow complex tachycardia that was treated with adenosine and converted to atrial fibrillation with RVR. She was put on rate slowing agents and did convert to normal sinus rhythm. Today she presents for post hospital follow-up. She denies any recurrent known episodes of tachycardia. She usually can not feel if her heart is going fast. She has had no lightheadedness, presyncope, syncope, falls. She has some shortness of breath at times related to her COPD. No recent changes to her breathing. No PND, orthopnea or edema. No chest discomfort at rest or with activity. She is taking all meds as directed. At the end of the visit she tells me she is a patient of Dr. Quigley for cardiology and recently wore Holter monitor for him. [facility] Medical History (Updated 06/30/23 @ 12:05 by Kierra Dumont, TI[employer] MECHANIC HELPER-C) Depression GERD (gastroesophageal reflux disease) Type 2 diabetes mellitus HLD (hyperlipidemia) AVNRT (AV janice re-entry tachycardia) Pneumonia Hypertension Hiatal hernia COPD (chronic obstructive pulmonary disease) Asthma Allergic rhinitis Social History Household Members: Significant Other and Family Housing: House Unable to assess alcohol history related to: Unknown Alcohol intake: never Patient Tobacco Use Status: Never used Tobacco Second Hand Smoke Exposure: No Substance Use Type: Marijuana Advance Directives Date on File: 05/24/23 service: No Review of Systems Const All systems reviewed & are unremarkable except as noted in HPI and below Denies chills, Denies fatigue, Denies fever(s), Denies frequent falls, Denies weakness, Denies weight gain and Denies weight loss ENT Denies dizziness Card Denies chest pain, Denies leg edema, Denies lightheadedness, Denies palpitations, Denies dyspnea and Denies dyspnea on exertion Resp Denies cough, Denies dyspnea and Denies dyspnea on exertion GI Denies hematochezia Musc Denies abnormal gait, Denies muscle weakness, Denies numbness, Denies radiating pain into limb and Denies tingling Neuro Denies abnormal gait, Denies dizziness, Denies frequent falls, Denies numbness, Denies tingling and Denies weakness Endo Denies fatigue and Denies palpitations Physical Exam Vital Signs: Last Vital Signs Pulse 98 06/30/23 10:27 BP 140/70 H 06/30/23 10:27 BMI result Body Mass Index 28.3 Const General: cooperative, healthy appearing, comfortable and no acute distress Orientation/consciousness: patient oriented x3 Neck Neck: Yes normal visual inspection Chest Chest palpation & inspection: normal inspection of the chest Resp Effort & Inspection: normal respiratory effort Auscultation: clear to auscultation bilaterally, no rales, no rhonchi and no wheezes Cardio Jugular venous distension: no JVD Rate: regular rate Rhythm: regular rhythm Heart sounds: S1 normal heart sound present, S2 normal heart sound present, no murmurs and no rubs Neuro General: patient oriented x3 Extrem General: Yes normal to inspection Psych Appearance: grossly normal Mental Status: mental status grossly normal Speech and movement: Normal speech and movement present Assessment & Plan Assessment & Plan (1) New onset atrial fibrillation: Code(s): I48.91 - Unspecified atrial fibrillation Plan: Recent [facility] admission with new finding of atrial fibrillation. She initially had narrow complex tachycardia that was treated with adenosine. It then converted to AFib RVR treated with diltiazem. She did convert back to sinus rhythm. On discharge she was sent home with metoprolol 12.5 mg b.i.d.. Eliquis 5 mg b.i.d.. 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 Quigley. She now presents for this visit today as a post hospital follow-up. Was not identified that she was seeing Dr. Quigley until the end of the visit. At present she is no longer taking metoprolol. She tells me that it was stopped prior to her hospital admission due to lightheadedness. She continues to have some mild lightheadedness at times. Recommend she restart metoprolol. Will send message to Dr. Quigley and have him contact patient regarding restarted metoprolol or other rate slowing agent. Her pulse is regular on examination today. She tells me she recently wore a Holter monitor, results are not available to me. She will follow-up in this office only as needed and continue to follow with her usual fermenting cellars supervisor. (2) AVNRT (AV janice re-entry tachycardia): Code(s): I47.19 - Other supraventricular tachycardia Plan: Initially noted to have narrow complex tachycardia requiring adenosine, heart rate over 200. She does have history of SVT with prior ablation 20 years ago. She will continue to follow with her primary fermenting [employer] supervisor (3) Cardiomyopathy: Code(s): I42.9 - Cardiomyopathy, unspecified Plan: [facility] echo done 05/23/2023 showing EF 40-45%, grade 2 diastolic dysfunction, valves not seen well. Prior known EF 45-50% at [facility] 03/2023. She is not in acute heart failure on examination. She will continue to follow with her primary fermenting [employer] supervisor (4) Hospital discharge follow-up: Code(s): Z09 - Encounter for follow-up examination after completed treatment for conditions other than malignant neoplasm Plan: as above Plan Time spent on chart review, documentation, interview and assessment Coding Level of Care Code Est Pt Level 3 (52437) Diagnoses New onset atrial fibrillation I48.91 AVNRT (AV janice re-entry tachycardia) I47.19 Cardiomyopathy I42.9 Hospital discharge follow-up Z09 Time Spent (min) 24
== END 2023-06-30 11:12 | disposition home or self-care (01) ==
PROVIDERS: PCP Internal Medicine; Visit Provider Nurse Practitioner Family
DX: I48.91 Unspecified atrial fibrillation (principal); I47.19 Other supraventricular tachycardia; I42.9 Cardiomyopathy, unspecified; Z09 Encounter for follow-up examination after completed treatment for conditions other than malignant neoplasm
CPT/HCPCS: 99213

== ENCOUNTER → 2023-06-30 10:23 | Outpatient (BNVA) | payer MEDICARE, OTHER, SELFPAY | PROVIDERS: PCP Internal Medicine; Visit Provider Nurse Practitioner Family | DX: I48.91 Unspecified atrial fibrillation (principal); I47.19 Other supraventricular tachycardia; I42.9 Cardiomyopathy, unspecified; Z79.01 Long term (current) use of anticoagulants; Z79.899 Other long term (current) drug therapy | CPT/HCPCS: 99212 ==

== ENCOUNTER 2023-08-14 11:07 | Outpatient (AMB) | payer MEDICARE, OTHER, SELFPAY ==
--- NOTE | 2023-08-14 11:11 | MHC.OFFVIS ---
Intake Vital Signs 08/14/23 11:17 Height 5 ft 2 in Weight 152 lb BMI 27.8 BP 150/80 H Blood Pressure Location Lt brachial Pulse 74 Pulse Oximetry (%) 97 Intake Visit Reasons: COPD Allergies latex Allergy (Unknown, Verified 08/14/23 12:40) HIVES doxycycline Adverse Reaction (Verified 08/14/23 12:40) Irritable Medication List - Last Reconciled 08/14/23 by Alina Howard MD albuterol sulfate 90 mcg/actuation (ProAir HFA) 2 puffs inhalation Q4-6H PRN apixaban (Eliquis) 5 mg PO BID cephalexin 500 mg PO QID clonazepam 0.5 mg PO BID duloxetine 60 mg PO DAILY escitalopram oxalate 20 mg PO Q48H fluticasone furoate-vilanterol 200-25 mcg/dose (Breo Ellipta) 1 inh inhalation DAILY losartan 50 mg PO DAILY methylprednisolone 4 mg PO Q48H pantoprazole 40 mg PO DAILY pravastatin 40 mg PO QPM prednisone 40 mg (2 x 20 mg) PO DAILY Do you need a note to return to daycare/school/sports/work: No HPI COPD HPI Details GEORGINA IS 67 YEARS OLD FEMALE, WITH CHRONIC ALLERGIC RHINITIS/BRONCHIAL ASTHMA/COPD, COMES AFTER 3 MONTHS FOR FOLLOW-UP, IN MAY 2023 SHE WAS ADMITTED BRIEFLY IN THE HOSPITAL WITH THE AV JANICE TACHYCARDIA, CHANGE IN MENTAL STATUS DUE TO METABOLIC ENCEPHALOPATHY, SHE RECOVERED WELL WITH THE ADJUSTMENT IN HER MEDICAL REGIMEN. SINCE THEN HAS BEEN DOING WELL. SHE CONTINUES TO USE BREO 200-251 INHALATION DAILY, AND HARDLY NEEDS TO USE ALBUTEROL. SHE WAS CAUTIONED TO USE LESS OF ALBUTEROL BECAUSE OF TACHYCARDIA. RETROSPECTIVELY I THINK PATIENT HAD DEVELOPED INCREASED SHORTNESS OF BREATH AND RESPIRATORY FAILURE BECAUSE SHE HAD BEEN TAKEN OFF MEDROL FOR ABOUT 2 WEEKS. NOW SHE IS TAKING MEDROL 4 MG HALF TABLET B.I.D., AND IS STAYING STABLE AND WELL. SHE DENIES ANY CHANGE IN MENTAL STATUS. SHE SEEMS TO BE AT HER BASELINE. SHE WALKS AROUND INDEPENDENTLY , AND DOES NOT NEED ANY OXYGEN. [facility] Medical History Depression GERD (gastroesophageal reflux disease) Type 2 diabetes mellitus HLD (hyperlipidemia) AVNRT (AV janice re-entry tachycardia) Pneumonia Hypertension Hiatal hernia COPD (chronic obstructive pulmonary disease) Asthma Allergic rhinitis Social History Household Members: Significant Other and Family Housing: House Unable to assess alcohol history related to: Unknown Alcohol intake: never Patient Tobacco Use Status: Never used Tobacco Second Hand Smoke Exposure: No Substance Use Type: Marijuana Advance Directives Date on File: 05/24/23 service: No Review of Systems Const All systems reviewed & are unremarkable except as noted in HPI and below Eyes Reports no additional complaints ENT Reports nasal congestion (Mild intermittent) Card Denies chest pain, Reports rapid heart rate (Occasional after using albuterol in nebulizer), Denies irregular heart rhythm and Denies leg edema Resp Reports as per HPI GI Reports no additional complaints Reports no additional complaints Musc Reports no additional complaints Skin/Breast Reports system reviewed and no additional complaints, except as documented Neuro Reports no additional complaints Psych Reports anxiety (Seems to be controlled) Endo Reports no additional complaints Physical Exam Vital Signs: Last Vital Signs Pulse 74 08/14/23 11:17 BP 150/80 H 08/14/23 11:17 Pulse Ox 97 08/14/23 11:17 BMI result Body Mass Index 27.8 Const General: comfortable, no acute distress, alert and awake Orientation/consciousness: patient oriented x3 HEENT Head: Yes normal to inspection General nose exam: No nasal polyps present and No nasal discharge present Face and sinus: Yes sinuses nontender Mouth: oropharynx normal Throat: Yes posterior oropharynx normal Eyes General: appearance normal, both eyes and all related structures Neck Neck: Yes normal visual inspection, Yes no lymphadenopathy, Yes trachea midline and Yes no JVD Thyroid: Thyroid normal Chest Chest palpation & inspection: normal inspection of the chest, normal palpation of entire chest wall and no tenderness Resp Other: PERCUSSION NOTE RESONANT, BREATH SOUNDS ARE DISTANT ON BOTH SIDES WITH PROLONGED EXPIRATORY PHASE. SHE DOES NOT HAVE ANY WHEEZES OR RHONCHI. Cardio Palpation: normal PMI Rate: regular rate Rhythm: regular rhythm Heart sounds: no gallops and no murmurs GI Palpation (GI): Soft to palpation, nontender, No hepatosplenomegaly present and no masses Auscultation: normal bowel sounds Back/Spine/Pelvis Thoracic/Lumbar Spine: thoracic and lumbar spine normal to inspection Skin General skin exam: no rashes or lesions noted Neuro General: patient oriented x3 and no focal motor deficits Cranial nerves: Yes CN's II-XII intact bilaterally Extrem General: Yes normal to inspection, Yes no clubbing, cyanosis or edema and Yes no calf tenderness Psych Appearance: grossly normal and well kempt Speech and movement: Normal speech and movement present Assessment & Plan Assessment & Plan (1) COPD (chronic obstructive pulmonary disease): Comment: Patient has chronic obstructive pulmonary disease , secondary to her long-time bronchial asthma. ASTHMA?COPD syndrome. She is steroids dependent. Does well on a small dose of Medrol 4 maintenance. Code(s): J44.9 - Chronic obstructive pulmonary disease, unspecified Plan: Continue Medrol 4 mg half tablet b.i.d.. Breo Ellipta 200-251 inhalation daily ProAir 1 or. 2 puffs q.6 hours p.r.n. to avoid tachycardia she is instructed to use only 1 puff at a time. She had been prescribed albuterol but because of cost . Issue she could not get it filled . (2) Asthma: Comment: Chronic allergic asthma. Now more advanced to COPD. Code(s): J45.909 - Unspecified asthma, uncomplicated Plan: See under COPD (3) Allergic rhinitis: Comment: Has chronic allergic rhinitis/sinusitis which flares up off and on. This also remains well controlled when she is using small dose of Medrol. Code(s): J30.9 - Allergic rhinitis, unspecified Plan: Continue same meds Coding Level of Care Code Est Pt Level 3 (31922) Diagnoses COPD (chronic obstructive pulmonary disease) J44.9 Asthma J45.909 Allergic rhinitis J30.9
[2023-08-14 11:17] VITALS: BP 150/80; PULSE 74; O2SAT 97; BMI 27.8
== END 2023-08-14 11:38 | disposition home or self-care (01) ==
PROVIDERS: PCP Internal Medicine; Visit Provider Internal Medicine
DX: J44.9 Chronic obstructive pulmonary disease, unspecified (principal); J45.909 Unspecified asthma, uncomplicated; J30.9 Allergic rhinitis, unspecified
CPT/HCPCS: 99213

== ENCOUNTER → 2023-08-14 11:07 | Outpatient (BNVA) | payer MEDICARE, OTHER, SELFPAY | PROVIDERS: PCP Internal Medicine; Visit Provider Internal Medicine | DX: J44.9 Chronic obstructive pulmonary disease, unspecified (principal); J45.909 Unspecified asthma, uncomplicated | CPT/HCPCS: 99212 ==

== ENCOUNTER 2024-01-09 13:44 | Outpatient (AMB) | payer MEDICARE, OTHER, SELFPAY ==
[2024-01-09 13:58] VITALS: BP 138/78; PULSE 78; O2SAT 97; BMI 29.8
--- NOTE | 2024-01-09 13:58 | MHC.OFFVIS ---
Vital Signs 01/09/24 13:58 Height 5 ft 2 in Weight 163 lb 2.273 oz BMI 29.8 BP 138/78 Blood Pressure Location Lt brachial Position Sitting Pulse 78 Pulse Source Pulse Oximeter Pulse Oximetry (%) 97 Oxygen Delivery Method Room Air Intake Visit Reasons: COPD Intake Note: pt is here for follow up and states she has been out of her methlprednisone for over a week and is feeling lousy. She is having a balance issue and fell last night and and is having pain on the right rib side ?rib fx. Deep breathing is causing pain. 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 Allergies latex Allergy (Unknown, Verified 01/09/24 14:35) HIVES doxycycline Adverse Reaction (Verified 01/09/24 14:35) Irritable Medication List - Last Reconciled 01/09/24 by Alina Howard MD albuterol sulfate 90 mcg/actuation (ProAir HFA) 2 puffs inhalation Q4-6H PRN apixaban (Eliquis) 5 mg PO BID clonazepam 0.5 mg PO BID duloxetine 60 mg PO DAILY escitalopram oxalate 20 mg PO Q48H fluticasone furoate-vilanterol 200-25 mcg/dose (Breo Ellipta) 1 inh inhalation DAILY losartan 50 mg PO DAILY methylprednisolone 4 mg PO Q48H methylprednisolone (Medrol) 4 mg PO DAILY 30 days pantoprazole 40 mg PO DAILY pravastatin 40 mg PO QPM Do you need a note to return to daycare/school/sports/work: No HPI HPI COPD: Details: THIS 68 YEARS OLD FEMALE IS HERE TODAY FOR HER ROUTINE FOLLOW-UP. OVERALL HAS BEEN DOING WELL BUT IN THE LAST 1 WEEK SHE HAS BEEN OUT OF MEDROL AND TODAY SHE COMPLAINS THAT SHE IS FEELING LOUSY WITH COUGH AND SHORTNESS OF BREATH. YESTERDAY SHE FELL ON THE FLOOR AND HURT RIGHT SIDE OF THE CHEST. SHE COMPLAINS OF SOME DISCOMFORT IN RIGHT MID CHEST. BUT IT HAS NOT AFFECTED HER BREATHING. SINCE HER LAST VISIT SHE HAS HAD NO RESPIRATORY INFECTION AND OVERALL HER RESPIRATORY STATUS HAS REMAINED STABLE. SHE IS HAPPY WITH THE USE OF BREO AND SAY IS SINCE SHE WAS STARTED ON BREO SHE HAS NOT NEEDED TO USE THE ALBUTEROL MUCH. [facility] Medical History Contusion of chest wall Depression GERD (gastroesophageal reflux disease) Type 2 diabetes mellitus HLD (hyperlipidemia) AVNRT (AV janice re-entry tachycardia) Pneumonia Hypertension Hiatal hernia COPD (chronic obstructive pulmonary disease) Asthma Allergic rhinitis Social History Household Members: Significant Other and Family Housing: House Unable to assess alcohol history related to: Unknown Alcohol intake: never Patient Tobacco Use Status: Never used Tobacco Second Hand Smoke Exposure: No Substance Use Type: Marijuana Advance Directives Date on File: 05/24/23 service: No Review of Systems Const All systems reviewed & are unremarkable except as noted in HPI and below Eyes Reports no additional complaints ENT Reports nasal congestion (Mild intermittent) Card Denies chest pain, Reports rapid heart rate (Occasional after using albuterol in nebulizer), Denies irregular heart rhythm and Denies leg edema Resp Reports as per HPI GI Reports no additional complaints Reports no additional complaints Musc Reports no additional complaints Skin/Breast Reports system reviewed and no additional complaints, except as documented Neuro Reports no additional complaints Psych Reports anxiety (Seems to be controlled) Endo Reports no additional complaints Physical Exam Vital Signs: Last Vital Signs Pulse 78 01/09/24 13:58 BP 138/78 01/09/24 13:58 Pulse Ox 97 01/09/24 13:58 Oxygen Delivery Method Room Air 01/09/24 13:58 BMI result Body Mass Index 29.8 Const General: comfortable, no acute distress, alert and awake Orientation/consciousness: patient oriented x3 HEENT Head: Yes normal to inspection General nose exam: No nasal polyps present and No nasal discharge present Face and sinus: Yes sinuses nontender Mouth: oropharynx normal Throat: Yes posterior oropharynx normal Eyes General: appearance normal, both eyes and all related structures Neck Neck: Yes normal visual inspection, Yes no lymphadenopathy, Yes trachea midline and Yes no JVD Thyroid: Thyroid normal Chest Chest palpation & inspection: normal inspection of the chest, normal palpation of entire chest wall and tenderness (THERE IS MILD TENDERNESS OVER THE RIGHT MID CHEST) Resp Other: PERCUSSION NOTE RESONANT, BREATH SOUNDS ARE DISTANT ON BOTH SIDES WITH PROLONGED EXPIRATORY PHASE. SHE DOES NOT HAVE ANY WHEEZES OR RHONCHI. Cardio Palpation: normal PMI Rate: regular rate Rhythm: regular rhythm Heart sounds: no gallops and no murmurs GI Palpation (GI): Soft to palpation, nontender, No hepatosplenomegaly present and no masses Auscultation: normal bowel sounds Back/Spine/Pelvis Thoracic/Lumbar Spine: thoracic and lumbar spine normal to inspection Skin General skin exam: no rashes or lesions noted Neuro General: patient oriented x3 and no focal motor deficits Cranial nerves: Yes CN's II-XII intact bilaterally Extrem General: Yes normal to inspection, Yes no clubbing, cyanosis or edema and Yes no calf tenderness Psych Appearance: grossly normal and well kempt Speech and movement: Normal speech and movement present Assessment & Plan Assessment & Plan (1) COPD (chronic obstructive pulmonary disease): Comment: Patient has chronic obstructive pulmonary disease , secondary to her long-time bronchial asthma. ASTHMA/COPD syndrome. She is steroids dependent. Does well on a small dose of Medrol 4 maintenance. Code(s): J44.9 - Chronic obstructive pulmonary disease, unspecified Category: Medical Plan: CONTINUE BREO 200 -25 1 INHALATION DAILY ALBUTEROL HFA 2 PUFFS Q 4-6 HOURS P.R.N.. MEDROL 4 MG ONCE A DAY BUT ONCE THE THE SYMPTOMS ARE UNDER CONTROLLED SHE SHOULD TRY TO CUT IT DOWN TO EVERY OTHER DAY. SHE HAS URGE TO CONTINUE TAKING CALCIUM-VITAMIN D SUPPLEMENT EVERY DAY (2) Asthma: Comment: Chronic allergic asthma. Now more advanced to COPD. Code(s): J45.909 - Unspecified asthma, uncomplicated Category: Medical Plan: UNDER COPD (3) Allergic rhinitis: Comment: Has chronic allergic rhinitis/sinusitis which flares up off and on. This also remains well controlled when she is using small dose of Medrol. Code(s): J30.9 - Allergic rhinitis, unspecified Category: Medical Plan: USE FLONASE 2 SPRAY IN EACH NOSTRIL DAILY (4) Contusion of chest wall: Comment: SHE REPORTS THAT SHE LOST HER BALANCE AND FELL ONTO THE RIGHT SIDE. NOW SHE HAS MILD TO MODERATE DISCOMFORT IN THE RIGHT MID CHEST BUT IT. DOES NOT AFFECT HER BREATHING Code(s): S20.219A - Contusion of unspecified front wall of thorax, initial encounter Category: Medical Plan: CHEST X-RAY IS ORDERED TO MAKE SURE THERE IS NO RIB FRACTURE Orders: Orders XR chest 2V Today J44.9 - Chronic obstructive pulmonary disease, unspecified, J45.909 - Unspecified asthma, uncomplicated, S20.219A - Contusion of unspecified front wall of thorax, initial encounter Medications: New methylprednisolone (Medrol) 4 mg PO DAILY 30 tabs 3RF ASTHMA 30 days Coding Level of Care Code Est Pt Level 3 (85374) Diagnoses COPD (chronic obstructive pulmonary disease) J44.9 Asthma J45.909 Allergic rhinitis J30.9 Contusion of chest wall S20.219A
== END 2024-01-09 14:31 | disposition home or self-care (01) ==
PROVIDERS: PCP Internal Medicine; Visit Provider Internal Medicine
DX: J44.9 Chronic obstructive pulmonary disease, unspecified (principal); J45.909 Unspecified asthma, uncomplicated; J30.9 Allergic rhinitis, unspecified; S20.219A Contusion of unspecified front wall of thorax, initial encounter
CPT/HCPCS: 99213

== ENCOUNTER 2024-01-09 13:44 | Outpatient (REF) | payer MEDICARE, OTHER, SELFPAY ==
--- NOTE | ~2024-01-09 | XR_ITS ---
EXAMINATION: XR CHEST CLINICAL INFORMATION: Contusion right front wall of thorax after fall last night COMPARISON: 05/23/2023, 04/01/2022 TECHNIQUE: 2 views of the chest were obtained. FINDINGS: Cardiomediastinal contours are stable. Lungs remain hyperinflated with increased AP diameter to the chest and flattening of the hemidiaphragms. No vascular congestion, consolidations or effusions. Platelike atelectasis identified at the lung bases, left greater than right. Bones are demineralized. XR/XR chest 2V IMPRESSION: Bibasilar atelectasis. Electronically signed by: Sherita Vu MD 02/06/2024 09:05 AM EDT RP
== END 2024-01-09 13:45 | disposition home or self-care (01) ==
LOC: HO.XRAY 13:44
PROVIDERS: PCP Internal Medicine; Visit Provider Internal Medicine
DX: S20.219A Contusion of unspecified front wall of thorax, initial encounter (principal); J44.9 Chronic obstructive pulmonary disease, unspecified
CPT/HCPCS: 71046; 99212

== ENCOUNTER 2024-04-17 13:40 | Outpatient (AMB) | payer MEDICARE, OTHER, SELFPAY ==
[2024-04-17 13:51] VITALS: BP 130/78; PULSE 66; O2SAT 97; BMI 29.2
--- NOTE | 2024-04-17 13:51 | A.OFFVIS_ITS ---
Vital Signs 04/17/24 13:51 Height 5 ft 2 in Weight 159 lb 13.362 oz BMI 29.2 BP 130/78 Blood Pressure Location Lt brachial Position Sitting Pulse 66 Pulse Source Pulse Oximeter Pulse Oximetry (%) 97 Oxygen Delivery Method Room Air Intake Visit Reasons: COPD Intake Note: pt is here for follow up and states she is feeling she has a tickle, dry cough, sneeze. 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 Allergies latex Allergy (Unknown, Verified 04/17/24 14:13) HIVES doxycycline Adverse Reaction (Verified 04/17/24 14:13) Irritable Medication List - Last Reconciled 04/17/24 by Alina Howard MD albuterol sulfate 90 mcg/actuation (ProAir HFA) 2 puffs inhalation Q4-6H PRN apixaban (Eliquis) 5 mg PO BID clonazepam 0.5 mg PO BID duloxetine 60 mg PO DAILY escitalopram oxalate 20 mg PO Q48H fluticasone furoate-vilanterol 200-25 mcg/dose (Breo Ellipta) 1 inh inhalation DAILY losartan 50 mg PO DAILY methylprednisolone 4 mg PO Q48H methylprednisolone (Medrol) 4 mg PO DAILY 30 days pantoprazole 40 mg PO DAILY pravastatin 40 mg PO QPM Do you need a note to return to daycare/school/sports/work: No HPI HPI COPD: Details: GEORGINA , 68 YEARS OLD, WITH HISTORY OF ALLERGIC RHINITIS BRONCHIAL ASTHMA/COPD FOR MANY MANY YEARS. RECENTLY SEEN FOR AN ACUTE EXACERBATION. CURRENTLY WITH THE USE OF METHYL PREDNISOLONE INITIALLY 4 MG, DAILY FOR 1 WEEK THEN ON ALTERNATE DAYS, SHE HAS IMPROVED A LOT. NOW SHE IS STAYING VERY STABLE, BUT SHE STILL HAS SOME NASAL CONGESTION WITH POSTNASAL DRIP ESPECIALLY IN THE MORNINGS. HE IS WALKING AROUND DURING THE DAY WITHOUT MUCH SHORTNESS OF BREATH. SHE TENDS TO LOSE BALANCE AND HAS TO HOLD ON TO SOMETHING WHEN WALKING OUTDOORS. DENIES ANY COUGH OR WHEEZING AT THIS TIME. [facility] Medical History Contusion of chest wall Depression GERD (gastroesophageal reflux disease) Type 2 diabetes mellitus HLD (hyperlipidemia) AVNRT (AV janice re-entry tachycardia) Pneumonia Hypertension Hiatal hernia COPD (chronic obstructive pulmonary disease) Asthma Allergic rhinitis Social History Household Members: Significant Other and Family Housing: House Unable to assess alcohol history related to: Unknown Alcohol intake: never Patient Tobacco Use Status: Never used Tobacco Second Hand Smoke Exposure: No Substance Use Type: Marijuana Advance Directives Date on File: 05/24/23 service: No Review of Systems Const All systems reviewed & are unremarkable except as noted in HPI and below Eyes Reports no additional complaints ENT Reports nasal congestion (Mild intermittent) Card Denies chest pain, Reports rapid heart rate (Occasional after using albuterol in nebulizer), Denies irregular heart rhythm and Denies leg edema Resp Reports as per HPI GI Reports no additional complaints Reports no additional complaints Musc Reports no additional complaints Skin/Breast Reports system reviewed and no additional complaints, except as documented Neuro Reports no additional complaints Psych Reports anxiety (Seems to be controlled) Endo Reports no additional complaints Physical Exam Vital Signs: Last Vital Signs Pulse 66 04/17/24 13:51 BP 130/78 04/17/24 13:51 Pulse Ox 97 04/17/24 13:51 Oxygen Delivery Method Room Air 04/17/24 13:51 BMI result Body Mass Index 29.2 Const General: comfortable, no acute distress, alert and awake Orientation/consciousness: patient oriented x3 HEENT Head: Yes normal to inspection General nose exam: No nasal polyps present and No nasal discharge present Face and sinus: Yes sinuses nontender Mouth: oropharynx normal Throat: Yes posterior oropharynx normal Eyes General: appearance normal, both eyes and all related structures Neck Neck: Yes normal visual inspection, Yes no lymphadenopathy, Yes trachea midline and Yes no JVD Thyroid: Thyroid normal Chest Chest palpation & inspection: normal inspection of the chest, normal palpation of entire chest wall and no tenderness Resp Other: PERCUSSION NOTE RESONANT, BREATH SOUNDS ARE DISTANT ON BOTH SIDES WITH PROLONGED EXPIRATORY PHASE. SHE DOES NOT HAVE ANY WHEEZES OR RHONCHI. Cardio Palpation: normal PMI Rate: regular rate Rhythm: regular rhythm Heart sounds: no gallops and no murmurs GI Palpation (GI): Soft to palpation, nontender, No hepatosplenomegaly present and no masses Auscultation: normal bowel sounds Back/Spine/Pelvis Thoracic/Lumbar Spine: thoracic and lumbar spine normal to inspection Skin General skin exam: no rashes or lesions noted Neuro General: patient oriented x3 and no focal motor deficits Cranial nerves: Yes CN's II-XII intact bilaterally Extrem General: Yes normal to inspection, Yes no clubbing, cyanosis or edema and Yes no calf tenderness Psych Appearance: grossly normal and well kempt Speech and movement: Normal speech and movement present Assessment & Plan Assessment & Plan (1) Contusion of chest wall: Comment: SHE REPORTS THAT SHE LOST HER BALANCE AND FELL ONTO THE RIGHT SIDE. She was checked on her last visit and sent for an x-ray which was negative. Treated with pain control and she has definitely improved. Denies any residual pain at this time. Code(s): S20.219A - Contusion of unspecified front wall of thorax, initial encounter Category: Medical Plan: Just use Tylenol 2 tablets p.r.n. (2) COPD (chronic obstructive pulmonary disease): Comment: Patient has chronic obstructive pulmonary disease , secondary to her long-time bronchial asthma. ASTHMA/COPD syndrome. She is steroids dependent. Does well on a small dose of Medrol 4 maintenance. Code(s): J44.9 - Chronic obstructive pulmonary disease, unspecified Category: Medical Plan: Continue to take Medrol 4 mg on alternate days Breo 200-25 1 inhalation daily Albuterol HFA Q 6 hours p.r.n. (3) Allergic rhinitis: Comment: Has chronic allergic rhinitis/sinusitis which flares up off and on. This also remains well controlled when she is using small dose of Medrol. Code(s): J30.9 - Allergic rhinitis, unspecified Category: Medical Plan: Medrol 4 mg on alternate days as written under COPD Does not tolerate intranasal spray Coding Level of Care Code Est Pt Level 3 (05344) Diagnoses Contusion of chest wall S20.219A COPD (chronic obstructive pulmonary disease) J44.9 Allergic rhinitis J30.9
== END 2024-04-17 14:15 | disposition home or self-care (01) ==
PROVIDERS: PCP Internal Medicine; Visit Provider Internal Medicine
DX: J44.9 Chronic obstructive pulmonary disease, unspecified (principal); S20.219A Contusion of unspecified front wall of thorax, initial encounter
CPT/HCPCS: 99213

== ENCOUNTER → 2024-04-17 13:40 | Outpatient (BNVA) | payer MEDICARE, OTHER, SELFPAY | PROVIDERS: PCP Internal Medicine; Visit Provider Internal Medicine | DX: J44.9 Chronic obstructive pulmonary disease, unspecified (principal); J30.9 Allergic rhinitis, unspecified; S20.219A Contusion of unspecified front wall of thorax, initial encounter; W19.XXXA Unspecified fall, initial encounter; Y93.9 Activity, unspecified; Y92.9 Unspecified place or not applicable; Y99.9 Unspecified external cause status | CPT/HCPCS: 99212 ==

== ENCOUNTER 2024-08-15 13:23 | Outpatient (AMB) | payer MEDICARE, OTHER, SELFPAY ==
--- NOTE | 2024-08-15 13:33 | MHC.OFFVIS ---
Vital Signs 08/15/24 13:34 Height 5 ft 2 in Weight 163 lb BMI 29.8 BP 130/92 H Blood Pressure Location Lt brachial Position Sitting Pulse 67 Pulse Source Pulse Oximeter Pulse Oximetry (%) 97 Oxygen Delivery Method Room Air Intake Visit Reasons: COPD Intake Note: pt is here for follow up and states she just is not breathing that well Liberal Arts Dean Required: No Allergies latex Allergy (Unknown, Verified 08/15/24 13:45) HIVES doxycycline Adverse Reaction (Verified 08/15/24 13:45) Irritable Medication List - Last Reconciled 08/15/24 by Alina Howard MD albuterol sulfate 90 mcg/actuation (ProAir HFA) 2 puffs inhalation Q4-6H PRN apixaban (Eliquis) 5 mg PO BID clonazepam 0.5 mg PO BID duloxetine 60 mg PO DAILY escitalopram oxalate 20 mg PO Q48H fluticasone furoate-vilanterol 200-25 mcg/dose (Breo Ellipta) 1 inh inhalation DAILY losartan 50 mg PO DAILY methylprednisolone 4 mg PO Q48H methylprednisolone (Medrol) 4 mg PO DAILY 30 days pravastatin 40 mg PO QPM Do you need a note to return to daycare/school/sports/work: No HPI HPI COPD: Details: This 68 years old female comes after 2 months for follow-up. She has very little cough expectoration or wheezing. But she feels that her lungs are weak and she gets short of breath very easily. So she does not walk around much. However her balance has improved. Her main issue is continued pain in the back and this is definitely due to osteoporosis and degenerative arthritis. She has had injections in the back, with incomplete relief. So she stays on duloxetine 60 mg daily and Tylenol p.r.n.. For respiratory issues she does use Breo 200-251 inhalation daily, albuterol p.r.n.. And she continues to take Medrol 4 mg daily. She tells me that she does take lot of supplements including vitamin-D and calcium. [facility] Medical History Contusion of chest wall Depression GERD (gastroesophageal reflux disease) Type 2 diabetes mellitus HLD (hyperlipidemia) AVNRT (AV janice re-entry tachycardia) Pneumonia Hypertension Hiatal hernia COPD (chronic obstructive pulmonary disease) Asthma Allergic rhinitis Social History Household Members: Significant Other and Family Housing: House Unable to assess alcohol history related to: Unknown Alcohol intake: never Patient Tobacco Use Status: Never used Tobacco Second Hand Smoke Exposure: No Substance Use Type: Marijuana Advance Directives Date on File: 05/24/23 service: No Review of Systems Const All systems reviewed & are unremarkable except as noted in HPI and below Eyes Reports no additional complaints ENT Reports nasal congestion (Mild intermittent) Card Denies chest pain, Reports rapid heart rate (Occasional after using albuterol in nebulizer), Denies irregular heart rhythm and Denies leg edema Resp Reports as per HPI GI Reports no additional complaints Reports no additional complaints Musc Reports no additional complaints Skin/Breast Reports system reviewed and no additional complaints, except as documented Neuro Reports no additional complaints Psych Reports anxiety (Seems to be controlled) Endo Reports no additional complaints Physical Exam Vital Signs: Last Vital Signs Pulse 67 08/15/24 13:34 BP 130/92 H 08/15/24 13:34 Pulse Ox 97 08/15/24 13:34 Oxygen Delivery Method Room Air 08/15/24 13:34 BMI result Body Mass Index 29.8 Const General: comfortable, no acute distress, alert and awake Orientation/consciousness: patient oriented x3 HEENT Head: Yes normal to inspection General nose exam: No nasal polyps present and No nasal discharge present Face and sinus: Yes sinuses nontender Mouth: oropharynx normal Throat: Yes posterior oropharynx normal Eyes General: appearance normal, both eyes and all related structures Neck Neck: Yes normal visual inspection, Yes no lymphadenopathy, Yes trachea midline and Yes no JVD Thyroid: Thyroid normal Chest Chest palpation & inspection: normal inspection of the chest, normal palpation of entire chest wall and no tenderness Resp Other: PERCUSSION NOTE RESONANT, BREATH SOUNDS ARE DISTANT ON BOTH SIDES WITH PROLONGED EXPIRATORY PHASE. SHE DOES NOT HAVE ANY WHEEZES OR RHONCHI. Cardio Palpation: normal PMI Rate: regular rate Rhythm: regular rhythm Heart sounds: no gallops and no murmurs GI Palpation (GI): Soft to palpation, nontender, No hepatosplenomegaly present and no masses Auscultation: normal bowel sounds Back/Spine/Pelvis Thoracic/Lumbar Spine: thoracic and lumbar spine normal to inspection Skin General skin exam: no rashes or lesions noted Neuro General: patient oriented x3 and no focal motor deficits Cranial nerves: Yes CN's II-XII intact bilaterally Extrem General: Yes normal to inspection, Yes no clubbing, cyanosis or edema and Yes no calf tenderness Psych Appearance: grossly normal and well kempt Speech and movement: Normal speech and movement present Office Procedures Spirometry Testing Spirometry Comments: Spirometry done in the office, Dr. Howard has the results results scanned to her chart. 66370- Spirometry Results Reviewed Results Reviewed: SPIROMETRY FVC= 65 % FEV1= 54 % FEF 25-75 = 32 % . NO CHANGE COMPARED TO NUMBERS IN 2020 Assessment & Plan Assessment & Plan (1) COPD (chronic obstructive pulmonary disease): Comment: Patient has chronic obstructive pulmonary disease , secondary to her long-time bronchial asthma. ASTHMA/COPD syndrome. She is steroids dependent. Does well on a small dose of Medrol 4 maintenance. She is also being treated for osteoporosis, I have explained to her almost all the time she comes here that continued oral steroids cause osteoporosis. Code(s): J44.9 - Chronic obstructive pulmonary disease, unspecified Category: Medical Plan: Continue Breo 200-25 1 inhalation daily Albuterol HFA 2 puffs Q 6 hours p.r.n.. * I wanted to add a Lama agent , but she say is it will be too costly and she will not be able to afford it. I advised her to cut down taking Medrol to 4 mg on alternate days. Orders: Orders AMB Spirometry Testing Today J44.9 - Chronic obstructive pulmonary disease, unspecified Coding Level of Care Code Est Pt Level 3 (81700) Diagnoses COPD (chronic obstructive pulmonary disease) J44.9 CPT Codes Spirometry - CPT: 42851- Spirometry ([id number])
[2024-08-15 13:34] VITALS: BP 130/92; PULSE 67; O2SAT 97; BMI 29.8
--- OUTSIDE RECORDS SUMMARY | 2024-08-15 16:58 | XMS_ITS | Patient Health Record ---
[facility] Address [address] [place] [address] Care Team Providers Care Residential Real Estate Sales Manager Name Role Phone Daniel Landa MD Primary Care Provider Rob Aguirre Unavailable [phone] Allergies Allergen (clinical drug ingredient) Drug/Non Drug Allergy documented on EMR Reaction Allergy Type Onset Date Status ciprofloxacin Cipro vomit,headache Drug Allergy Active Levaquin vomit Drug Allergy Active Adhesive rash Allergy Active codeine Codeine vomit Drug Allergy Active Latex Latex hives Allergy Active Reason For Referral No Information Medications Medication SIG (Take, Route, Frequency, Duration) Notes Start Date End Date Status Physical Therapy . . . 2-3x/week for 3- 4 weeks 01/30/2017 Unknown Singulair 10mg daily Unkno wn Dulera 200-5 MCG/ACT 2 puffs Inhalation Twice a day Unknown Cannabidiol Active Flovent Diskus Unkno wn Biaxin Unknown Cymbalta 60 MG 1 capsule Orally Onc e a day for 30 day(s) Active Lexapro 20mg daily Unknown Pantoprazole Sodium 40 MG 1 tablet Orall y Once a day for 30 day(s) Active Keflex Unknown buPROPion HBr ER Act maxi methylPREDNISolone 4 MG 1 tablet with fo od or milk Orally every 12 hrs for 30 day(s) Active Serevent Diskus Unkn own Escitalopram Oxalate 20 MG 0.5 tablet Or ally Once a day Active clonazePAM 0.5 MG 1 tablet Orally Twic e a day Active Losartan Potassium 50 MG 1 tablet Orally Once a day Active ProAir HFA 108 (90 Base) MCG/ACT 2 puffs as needed Inhalation every 4 hrs Active Physical Therapy . . . 2-3x/week for 3- 4 weeks Active Keflex 500 MG 1 capsule Orally every 12 hrs for 10 day(s) Active Pravastatin Sodium 40 MG 1 tablet Orally Once a day Active Walking Boot/Pneumatic As directed Wear Daily for Until further notice 10/26/2022 Active Night Splint AFO - L1930 as directed 10/26/2022 Active Omeprazole 20mg daily Unkn own methylPREDNISolone U nknown oxyCODONE-Acetaminophen 5-32 5 MG 1 tablet as needed Orally every 6 hrs Unknown Wellbutrin Unknown Breo Ellipta Unknown AFO-fixed . 1 . PTB AFO well padded brace left leg for . 02/20/2017 Unknown Social History Tobacco Use: Social History Observation Description Date Details (start date - stop date) Former Smoker NA - NA Tobacco Use/Smoking Question Answer Notes Are you a: former smoker When did you start smoking? 1971 When did you stop smoking? 03/2016 Additional Findings: Tobacco Non-User Current no n-smoker Alcohol Screen Question Answer Notes Did you have a drink containing alcohol in the p ast year? No Points 0 Interpretation Negative Tobacco use other than smoking: Question Answer Notes Are you an other tobacco user? No Problems No Known Problems Plan Of Treatment Pending Test Test Name Order Date X ray : Foot, left 2V 04/20/2011 X ray : Foot, right 2V 04/20/2011 X ray : Foot, left 3V 11/24/2016 X ray : Foot, left 3V 10/26/2022 X ray : Foot, right 3V 10/04/2017 [id number] TENDON SHEATH/LIGAMENT 0 12/15/2016 Insurance Providers Payer Name Payer Address Payer Phone Subscriber Number Group Number Insured Name Patient Relationship to Insured Coverage Start Date Coverage End Date Medicare [facility] [address] [place] [address] [id number] Mikki Reynaga Self - patient is the insured [facility] [address] [place] [phone] [id number] Mikki Reynaga Self - patient is the insured Medical (General) History Medical History History ICD Code chronic sinusitis sciatica reflux Mumps Hiatal hernia headaches/migraines depression chicken pox asthma Arthritis Anxiety disorder Cancer Measles Hypertension Osteoporosis Psychiatric disorder Cataracts CAD (Cholesterol) covid-19 Diabetic Fibromyalgia Heart disease High blood pressure Surgical History Surgery Date(Month/Year) heart surgery unspecified 1998 melanoma excision 1998 shoulder surgery 2006 uterus surgery 1998
== END 2024-08-15 14:13 | disposition home or self-care (01) ==
LOC: HO.HPS 13:24
PROVIDERS: PCP Internal Medicine; Visit Provider Internal Medicine
DX: J44.9 Chronic obstructive pulmonary disease, unspecified (principal)
CPT/HCPCS: 94010; 99213

== ENCOUNTER → 2024-08-15 13:23 | Outpatient (BNVA) | payer MEDICARE, OTHER, SELFPAY | PROVIDERS: PCP Internal Medicine; Visit Provider Internal Medicine | DX: J44.9 Chronic obstructive pulmonary disease, unspecified (principal) | CPT/HCPCS: 94010; 99212 ==

== ENCOUNTER 2024-11-14 13:26 | Outpatient (AMB) | payer MEDICARE, OTHER, SELFPAY ==
[2024-11-14 13:39] VITALS: BP 124/90; PULSE 70; O2SAT 99; BMI 29.8
--- NOTE | 2024-11-14 13:39 | MHC.OFFVIS ---
Vital Signs 11/14/24 13:39 Height 5 ft 2 in Weight 163 lb BMI 29.8 BP 124/90 H Blood Pressure Location Lt brachial Position Sitting Pulse 70 Pulse Source Pulse Oximeter Pulse Oximetry (%) 99 Oxygen Delivery Method Room Air Intake Visit Reasons: COPD Intake Note: pt is here for follow up and states she is feeling flavio heavy with breathing, has episodes of pant once in a while that she will describe, Surveillance Specialist Required: No Allergies latex Allergy (Unknown, Verified 11/14/24 14:05) HIVES doxycycline Adverse Reaction (Verified 11/14/24 14:05) Irritable Medication List - Last Reconciled 11/14/24 by Alina Howard MD albuterol sulfate 90 mcg/actuation (ProAir HFA) 2 puffs inhalation Q4-6H PRN apixaban (Eliquis) 5 mg PO BID clonazepam 0.5 mg PO BID duloxetine 60 mg PO DAILY escitalopram oxalate 20 mg PO Q48H fluticasone furoate-vilanterol 200-25 mcg/dose (Breo Ellipta) 1 inh inhalation DAILY losartan 50 mg PO DAILY methylprednisolone 4 mg PO Q48H methylprednisolone (Medrol) 4 mg PO DAILY 30 days pravastatin 40 mg PO QPM Do you need a note to return to daycare/school/sports/work: No HPI HPI COPD: Details: Mikki has turned 69, nasal congestion and COPD/asthma her staying relatively stable and controlled. She does get short of breath if she does any physical work. She rides her bike around the block and is adjusted the end of the block that she gets short of breath. This represents definite improvement from before. She has minimal nasal congestion,with some postnasal drip. Describes that every now and then she has an urge to take a deep breath. It is nonspecific. [facility] Medical History Contusion of chest wall Depression GERD (gastroesophageal reflux disease) Type 2 diabetes mellitus HLD (hyperlipidemia) AVNRT (AV janice re-entry tachycardia) Pneumonia Hypertension Hiatal hernia COPD (chronic obstructive pulmonary disease) Asthma Allergic rhinitis Social History Household Members: Significant Other and Family Housing: House Unable to assess alcohol history related to: Unknown Alcohol intake: never Patient Tobacco Use Status: Never used Tobacco Second Hand Smoke Exposure: No Substance Use Type: Marijuana Advance Directives Date on File: 05/24/23 service: No Review of Systems Const All systems reviewed & are unremarkable except as noted in HPI and below Eyes Reports no additional complaints ENT Reports nasal congestion (Mild intermittent) Card Denies chest pain, Reports rapid heart rate (Occasional after using albuterol in nebulizer), Denies irregular heart rhythm and Denies leg edema Resp Reports as per HPI GI Reports no additional complaints Reports no additional complaints Musc Reports no additional complaints Skin/Breast Reports system reviewed and no additional complaints, except as documented Neuro Reports no additional complaints Psych Reports anxiety (Seems to be controlled) Endo Reports no additional complaints Physical Exam Vital Signs: Last Vital Signs Pulse 70 11/14/24 13:39 BP 124/90 H 11/14/24 13:39 Pulse Ox 99 11/14/24 13:39 Oxygen Delivery Method Room Air 11/14/24 13:39 BMI result Body Mass Index 29.8 Const General: comfortable, no acute distress, alert and awake Orientation/consciousness: patient oriented x3 HEENT Head: Yes normal to inspection General nose exam: No nasal polyps present and No nasal discharge present Face and sinus: Yes sinuses nontender Mouth: oropharynx normal Throat: Yes posterior oropharynx normal Eyes General: appearance normal, both eyes and all related structures Neck Neck: Yes normal visual inspection, Yes no lymphadenopathy, Yes trachea midline and Yes no JVD Thyroid: Thyroid normal Chest Chest palpation & inspection: normal inspection of the chest, normal palpation of entire chest wall and no tenderness Resp Other: PERCUSSION NOTE RESONANT, BREATH SOUNDS ARE DISTANT ON BOTH SIDES WITH PROLONGED EXPIRATORY PHASE. SHE DOES NOT HAVE ANY WHEEZES OR RHONCHI. Cardio Palpation: normal PMI Rate: regular rate Rhythm: regular rhythm Heart sounds: no gallops and no murmurs GI Palpation (GI): Soft to palpation, nontender, No hepatosplenomegaly present and no masses Auscultation: normal bowel sounds Back/Spine/Pelvis Thoracic/Lumbar Spine: thoracic and lumbar spine normal to inspection Skin General skin exam: no rashes or lesions noted Neuro General: patient oriented x3 and no focal motor deficits Cranial nerves: Yes CN's II-XII intact bilaterally Extrem General: Yes normal to inspection, Yes no clubbing, cyanosis or edema and Yes no calf tenderness Psych Appearance: grossly normal and well kempt Speech and movement: Normal speech and movement present Assessment & Plan Assessment & Plan (1) COPD (chronic obstructive pulmonary disease): Comment: Patient has chronic obstructive pulmonary disease , secondary to her long-time bronchial asthma. ASTHMA/COPD syndrome. She is steroids dependent. Does well on a small dose of Medrol 4 maintenance. She is also being treated for osteoporosis, I have explained to her almost all the time she comes here that continued oral steroids cause osteoporosis. Code(s): J44.9 - Chronic obstructive pulmonary disease, unspecified Category: Medical Plan: Continue to use Breo Ellipta 200-251 inhalation daily Albuterol HFA 2 puffs Q 6 hours prn Medrol 4 mg on alternate days Do use vitamin-D supplement daily (2) Allergic rhinitis: Comment: Has chronic allergic rhinitis/sinusitis which flares up off and on. This also remains well controlled when she is using small dose of Medrol. Code(s): J30.9 - Allergic rhinitis, unspecified Category: Medical Plan: Flonase 2 spray each nostril once a day p.r.n. if there is increased nasal congestion Continue Medrol 4 mg on alternate days. Coding Level of Care Code Est Pt Level 3 (03287) Diagnoses COPD (chronic obstructive pulmonary disease) J44.9 Allergic rhinitis J30.9
--- OUTSIDE RECORDS SUMMARY | 2024-11-14 15:42 | XMS_ITS | Patient Health Record ---
[facility] Organization [facility] Address [address] [place] [address] Care Team Providers Care Warp Tying Machine Tender Name Role Phone Daniel Landa MD Primary Care Provider Rob Aguirre Unavailable [phone] Allergies Allergen (clinical drug ingredient) Drug/Non Drug [...] 04/20/2011 X ray : Foot, left 3V 10/26/2022 X ray : Foot, left 3V 11/24/2016 X ray : Foot, right 3V 10/04/2017 [id number] TENDON SHEATH/LIGAMENT 0 12/15/2016 Insurance Providers Payer Name Payer Address Payer Phone Subscriber Number Group Number Insured Name Patient Relationship to Insured Coverage Start Date Coverage End Date Medicare [facility] [address] [place] [address] [id number] Mikki Reynaga Self - patient is the insured [facility] [address] [place] [phone] [id number] Mikki Reynaga Self - patient is the [...]
== END 2024-11-14 14:19 | disposition home or self-care (01) ==
LOC: HO.HPS 13:27
PROVIDERS: PCP Internal Medicine; Visit Provider Internal Medicine
DX: J44.9 Chronic obstructive pulmonary disease, unspecified (principal); J30.9 Allergic rhinitis, unspecified
CPT/HCPCS: 99213

== ENCOUNTER → 2024-11-14 13:26 | Outpatient (BNVA) | payer MEDICARE, OTHER, SELFPAY | PROVIDERS: PCP Internal Medicine; Visit Provider Internal Medicine | DX: J44.9 Chronic obstructive pulmonary disease, unspecified (principal); J30.9 Allergic rhinitis, unspecified | CPT/HCPCS: 99212 ==

== ENCOUNTER 2025-05-15 13:30 | Outpatient (AMB) | payer MEDICARE, OTHER, SELFPAY ==
--- NOTE | 2025-05-15 13:37 | A.OFFVIS_ITS ---
Vital Signs 05/15/25 13:38 Height 5 ft 2 in Weight 163 lb 2.273 oz BMI 29.8 BP 120/72 Blood Pressure Location Lt brachial Position Sitting Pulse 66 Pulse Source Pulse Oximeter Pulse Oximetry (%) 98 Oxygen Delivery Method Room Air Intake Visit Reasons: copd Intake Note: pt is here for follow up and states her breathing is good, she is having right hip replacement by [facility] on 06/02/25. Traveling Auditor Required: No Allergies latex Allergy (Unknown, Verified 05/15/25 13:57) HIVES doxycycline Adverse Reaction (Verified 05/15/25 13:57) Irritable Medication List - Last Reconciled 05/15/25 by Alina Howard MD albuterol sulfate 90 mcg/actuation (ProAir HFA) 2 puffs inhalation Q4-6H PRN apixaban (Eliquis) 5 mg PO BID Breo Ellipta 200-25 mcg/dose (fluticasone furoate-vilanterol) 1 ea PO DAILY NS clonazepam 0.5 mg PO BID duloxetine 60 mg PO DAILY escitalopram oxalate 20 mg PO Q48H losartan 50 mg PO DAILY methylprednisolone (Medrol) 4 mg PO DAILY 30 days pravastatin 40 mg PO QPM Do you need a note to return to daycare/school/sports/work: No HPI HPI copd: Details: Mikki is 69 years old female, with lifelong bronchial asthma, which has now phased into asthma/COPD syndrome, is here for follow-up after 6 months. She also has chronic allergic rhinitis as part of her chronic asthma and it is remaining under good control. She is dependent on oral steroids, currently on a low-dose Medrol ( 4 mg ) daily, along with the inhaled ICS/LABA ( Breo Ellipta ) 1 inhalation daily She has been fairly stable in the last 6 months. She did not try to cut down Medrol to alternate days. She does take vitamin-D with calcium supplements. Has advanced degenerative arthritis of the right hip and will be undergoing hip surgery. At present she does not have sign of any acute infection or acute exacerbation. [facility] Medical History Contusion of chest wall Depression GERD (gastroesophageal reflux disease) Type 2 diabetes mellitus HLD (hyperlipidemia) AVNRT (AV janice re-entry tachycardia) Pneumonia Hypertension Hiatal hernia COPD (chronic obstructive pulmonary disease) Asthma Allergic rhinitis Social History Household Members: Significant Other and Family Housing: House Alcohol intake: never Patient Tobacco Use Status: Never used Tobacco Second Hand Smoke Exposure: No Substance Use Type: Marijuana Advance Directives Date on File: 05/24/23 service: No Review of Systems Const All systems reviewed & are unremarkable except as noted in HPI and below Eyes Reports no additional complaints ENT Reports nasal congestion (Mild intermittent) Card Denies chest pain, Reports rapid heart rate (Occasional after using albuterol in nebulizer), Denies irregular heart rhythm and Denies leg edema Resp Reports as per HPI GI Reports no additional complaints Reports no additional complaints Musc Reports no additional complaints Skin/Breast Reports system reviewed and no additional complaints, except as documented Neuro Reports no additional complaints Psych Reports anxiety (Seems to be controlled) Endo Reports no additional complaints Physical Exam Vital Signs: Last Vital Signs Pulse 66 05/15/25 13:38 BP 120/72 05/15/25 13:38 Pulse Ox 98 05/15/25 13:38 Oxygen Delivery Method Room Air 05/15/25 13:38 BMI result Body Mass Index 29.8 Const General: comfortable, no acute distress, alert and awake Orientation/consciousness: patient oriented x3 HEENT Head: Yes normal to inspection General nose exam: No nasal polyps present and No nasal discharge present Face and sinus: Yes sinuses nontender Mouth: oropharynx normal Throat: Yes posterior oropharynx normal Eyes General: appearance normal, both eyes and all related structures Neck Neck: Yes normal visual inspection, Yes no lymphadenopathy, Yes trachea midline and Yes no JVD Thyroid: Thyroid normal Chest Chest palpation & inspection: normal inspection of the chest, normal palpation of entire chest wall and no tenderness Resp Other: PERCUSSION NOTE RESONANT, BREATH SOUNDS ARE DISTANT ON BOTH SIDES WITH PROLONGED EXPIRATORY PHASE. SHE DOES NOT HAVE ANY WHEEZES OR RHONCHI. Cardio Palpation: normal PMI Rate: regular rate Rhythm: regular rhythm Heart sounds: no gallops and no murmurs GI Palpation (GI): Soft to palpation, nontender, No hepatosplenomegaly present and no masses Auscultation: normal bowel sounds Back/Spine/Pelvis Thoracic/Lumbar Spine: thoracic and lumbar spine normal to inspection Skin General skin exam: no rashes or lesions noted Neuro General: patient oriented x3 and no focal motor deficits Cranial nerves: Yes CN's II-XII intact bilaterally Extrem General: Yes normal to inspection, Yes no clubbing, cyanosis or edema and Yes no calf tenderness Psych Appearance: grossly normal and well kempt Speech and movement: Normal speech and movement present Assessment & Plan Assessment & Plan (1) COPD (chronic obstructive pulmonary disease): Comment: Patient has chronic obstructive pulmonary disease , secondary to her long-time bronchial asthma. ASTHMA/COPD syndrome. She is steroids dependent. Does well on a small dose of Medrol 4 maintenance. She is also being treated for osteoporosis, I have explained to her almost all the time she comes here that continued oral steroids cause osteoporosis. Code(s): J44.9 - Chronic obstructive pulmonary disease, unspecified Category: Medical Plan: Continue Breo Ellipta 200-251 inhalation daily Medrol 4 mg once a day, advise that after hip surgery she should try to cut down Medrol to every other day if breathing stays stable. Albuterol 2 puffs Q 6 hours p.r.n. I stressed that she should take vitamin-D with calcium supplement every day (2) Allergic rhinitis: Comment: Has chronic allergic rhinitis/sinusitis which flares up off and on. This also remains well controlled when she is using small dose of Medrol. Code(s): J30.9 - Allergic rhinitis, unspecified Category: Medical Plan: Continue the meds as under COPD. Patient does not tolerate Flonase. spray Maintenance dose of Medrol does help to keep her allergic rhinitis under control. Coding Level of Care Code Est Pt Level 3 (80876) Diagnoses COPD (chronic obstructive pulmonary disease) J44.9 Allergic rhinitis J30.9
[2025-05-15 13:38] VITALS: BP 120/72; PULSE 66; O2SAT 98; BMI 29.8
== END 2025-05-15 13:59 | disposition home or self-care (01) ==
LOC: HO.HPS 13:31
PROVIDERS: PCP Internal Medicine; Visit Provider Internal Medicine
DX: J44.9 Chronic obstructive pulmonary disease, unspecified (principal); J30.9 Allergic rhinitis, unspecified
CPT/HCPCS: 99213

== ENCOUNTER → 2025-05-15 13:30 | Outpatient (BNVA) | payer MEDICARE, OTHER, SELFPAY | PROVIDERS: PCP Internal Medicine; Visit Provider Internal Medicine | DX: J44.9 Chronic obstructive pulmonary disease, unspecified (principal); J30.9 Allergic rhinitis, unspecified | CPT/HCPCS: 99212 ==